=== PATIENT | female | born 1965 | race Caucasian/White ===

== ENCOUNTER 2016-07-06 18:16 | Emergency (ER) | payer MEDICARE, MEDICAID ==
--- NOTE | 2016-07-06 18:29 | UC ---
Truncal Trauma HPI - HPI Summary HPI Summary: fell this morning hitting the left side of her back on a chair---pain in left posterior ribs - History Of Current Complaint Chief Complaint: UCBackPain Stated Complaint: RIB INJURY Time Seen by Provider: 07/06/16 18:25 Hx Obtained From: Patient Hx Last Menstrual Period: October 2013 ?: No Onset/Duration: Sudden Onset, Lasting Hours - 10-11 hours ago Onset Of Pain: Immediate Severity Initially: Moderate Severity Currently: Moderate Pain Intensity: 6 Pain Scale Used: 0-10 Numeric Mechanism Of Injury: Blunt Trauma, Fall From A Standing Position Aggravating Factor(s): Deep Breathing Alleviating factor(s): Nothing Associated Signs And Symptoms: Positive: Negative - Allergies/Home Medications Allergies/Adverse Reactions: Allergies Allergy/AdvReac Type Severity Reaction Status Date / Time Latex Allergy Intermediate Rash And Verified 07/06/16 18:30 Itching Ceftriaxone [From Rocephin] Allergy Unknown Unknown Verified 07/06/16 18:30 Reaction Details Cephalosporins Allergy Unknown Unknown Verified 07/06/16 18:30 Reaction Details Penicillins Allergy Unknown Unknown Verified 07/06/16 18:30 Reaction Details Yeast Allergy Unknown Unknown Verified 07/06/16 18:30 Reaction Details Adhesive Tape Allergy Rash Verified 07/06/16 18:30 Iodinated Diagnostic Agents Allergy Unknown Verified 07/06/16 18:30 Reaction Details Prednisone Allergy Swelling Verified 07/06/16 18:30 Of Face,Lips,& Throat Epinephrine AdvReac Severe "MADE ME Verified 07/06/16 18:30 ALMOST GO UNCONSCIOUS" Tramadol AdvReac Intermediate Shakes Verified 07/06/16 18:30 Cyclosporine [From Restasis] AdvReac Unknown Unknown Verified 02/15/16 14:46 Reaction Details Gabapentin [From Neurontin] AdvReac Unknown Unknown Verified 02/15/16 14:46 Reaction Details Sulfa Antibiotics AdvReac See Comment Verified 02/15/16 14:46 box elder Allergy Severe Unknown Uncoded 02/15/16 14:46 Reaction Details MOLD/MILDEW Allergy Severe BREATHING Uncoded 02/15/16 14:46 DIFFICULTY perfumes Allergy Severe Airway Uncoded 02/15/16 14:46 Obstruction AIRBORN ALLERGENS Allergy Unknown Unknown Uncoded 02/15/16 14:46 Reaction Details flouride Allergy Unknown Unknown Uncoded 02/15/16 14:46 Reaction Details histamines Allergy Unknown Unknown Uncoded 02/15/16 14:46 Reaction Details PMH/Surg Hx/FS Hx/Imm Hx Previously Healthy: No Endocrine History Of: Denies: Diabetes, Thyroid Disease Cardiovascular History Of: Reports: Hypertension, Congestive Heart Failure Denies: Cardiac Disorders, Pacemaker/ICD Respiratory History Of: Denies: COPD, Asthma GI/ History Of: Denies: Ulcer Neurological History Of: Reports: CVA - CVA x 2 2014 Denies: Seizures Psychological History Of: Denies: Anxiety, Depression, Bipolar Disorder, Schizophrenia Other History Of: Negative For: Anticoagulant Therapy - Surgical History Surgical History: Unable to Obtain/Confirm Surgery Procedure, Year, and Place: 18 dental removals and numerous implants that failed - CHRONIC LOW GRADE INFECTION. Skin grafts February 2016 - Family History Known Family History: Positive: Cardiac Disease, Hypertension - Social History Occupation: Disabled Lives: With Family Alcohol Use: None Substance Use Type: None Smoking Status (MU): Former Smoker Length of Time of Smoking/Using Tobacco: quit 1996 Have You Smoked in the Last Year: No - Immunization History Most Recent Influenza Vaccination: none Most Recent Tetanus Shot: distant past Most Recent Pneumonia Vaccination: none Review of Systems Constitutional: Negative Skin: Negative Eyes: Negative ENT: Negative Respiratory: Negative Cardiovascular: Negative Gastrointestinal: Negative Genitourinary: Negative Motor: Negative Neurovascular: Negative Musculoskeletal: Arthralgia - left posterior rib pain Neurological: Negative Psychological: Negative All Other Systems Reviewed And Are Negative: Yes Physical Exam Triage Information Reviewed: Yes Appearance: Ill-Appearing - chronic debilitated, Pain Distress - mild, Thin Vital Signs: Initial Vital Signs Temp 99.1 F 07/06/16 18:22 Pulse 90 07/06/16 18:22 Resp 18 07/06/16 18:22 BP 158/94 07/06/16 18:22 Pulse Ox 97 07/06/16 18:22 Vital Signs Reviewed: Yes Eye Exam: Normal Eyes: Positive: Conjunctiva Clear ENT Exam: Normal ENT: Positive: Normal ENT inspection, Hearing grossly normal. Negative: Nasal congestion, Nasal drainage, Muffled/hoarse voice Dental Exam: Other Dental: Positive: Other: - multiple missing teeth Neck exam: Normal Neck: Positive: Supple, Nontender, No Lymphadenopathy Respiratory Exam: Normal Respiratory: Positive: Lungs clear, Normal breath sounds, No respiratory distress, No accessory muscle use, Other: - left posterior rib pain Cardiovascular Exam: Normal Cardiovascular: Positive: RRR, No Murmur, Pulses Normal, Brisk Capillary Refill Musculoskeletal Exam: Normal Musculoskeletal: Positive: Strength Intact, ROM Intact, No Edema Neurological Exam: Normal Neurological: Positive: Alert, Muscle Tone Normal Psychological Exam: Normal Skin Exam: Normal Diagnostics - Radiology No standard instances Xray Interpretation: Positive (See Comments) - minimally displaced left 9th posterior rib pain Radiology Interpretation Completed By: Radiologist Truncal Trauma Course/Dx - Course Course Of Treatment: pain control, social work referral, increase fluids, cough and deep breath q1 hour while awake - Differential Dx/Diagnosis Differential Diagnosis/HQI/PQRI: Renal Trauma, Rib Fracture Provider Diagnoses: left 9th posterior rib fx, hematuria (chronic) Discharge - Discharge Plan Condition: Stable Disposition: HOME Patient Education Materials: Rib Fracture (ED), Hematuria (ED), RICE Therapy ( ED) Referrals: Rose Mary Almonte MD [Primary Care Provider] - 3 Days
--- NOTE | 2016-07-06 19:52 | RAD ---
Indication: Evaluate for rib injury, chest pain the left. 3 views of the left ribs are reviewed. There is fracture of the left ninth rib laterally. There is some minimal displacement noted. No pneumothorax is noted. IMPRESSION: Minimally displaced fracture of the left ninth rib.
[2016-07-06] MEDS ORDERED: HYDROcodone/ACETAMIN 5-325 MG* 1 TAB PO ONE (20:01)
[2016-07-06 21:09] VITALS: BP 142/83
== END 2016-07-06 20:25 | disposition home or self-care (01) ==
LOC: UCEAST 18:16
DX: S22.32XA Fracture of one rib, left side, initial encounter for closed fracture (principal); R31.9 Hematuria, unspecified; W20.8XXA Other cause of strike by thrown, projected or falling object, initial encounter; Y92.9 Unspecified place or not applicable; I10 Essential (primary) hypertension; I50.9 Heart failure, unspecified; I63.9 Cerebral infarction, unspecified; Z88.0 Allergy status to penicillin
CPT/HCPCS: 81003; 99212; G0463

== ENCOUNTER 2016-08-18 15:20 | Inpatient (IN) | payer MEDICARE, MEDICAID ==
[2016-08-18] MEDS ORDERED: NS 0.9% 1000 ML* 1,000 ML IV ONE ×2 (18:19→19:41)
--- NOTE | 2016-08-18 18:48 | RAD ---
INDICATION: Hemoptysis single episode this morning. COMPARISON: July 06, 2016 and August 14, 2015 TECHNIQUE: Dual energy PA and routine lateral views of the chest were obtained. REPORT: Elevated lung volumes with mild prominence of the interstitial markings and patchy upper lung zone rarefaction. Alveolar consolidation at the LEFT lung base likely involving the anteromedial basal segment of the LEFT lower lobe without volume loss suspicious for pneumonia. Negative for pleural effusion or pneumothorax. Upper normal heart size. Unremarkable central pulmonary vasculature and mediastinal contours. No suspicious focal osseous lesions evident. IMPRESSION: The constellation of findings is most consistent with LEFT basilar pneumonia superimposed on chronic obstructive pulmonary disease. Radiographic follow-up after therapy suggested to assess for resolution.
[2016-08-18 19:01] LABS: Hematocrit 33 % (35-47); Hemoglobin 11.2 g/dl (12.0-16.0); Mean Corpuscular HGB Conc 34 g/dl (31-36); Mean Corpuscular Hemoglobin 30 pg (27-31); Mean Corpuscular Volume 90 fL (80-97); Mean Platelet Volume 8 um3 (7.4-10.4); Red Blood Count 3.68 10^6/ul (4.0-5.4); Red Cell Distribution Width 15 % (10.5-15); White Blood Count 7.4 10^3/ul (3.5-10.8)
[2016-08-18 19:18] LABS: ALT 22 U/L (7-52); Albumin 2.9 g/dL (3.2-5.2); Alkaline Phosphatase 66 U/L (34-104); BUN/Creatinine Ratio 31.8 (8-20); Blood Urea Nitrogen 55 mg/dL (6-24); CO2 Carbon Dioxide 21 mmol/L (22-32); Calcium 9.6 mg/dL (8.6-10.3); Chloride 103 mmol/L (101-111); EGFR African American 39.6 (>60); EGFR Non-African American 30.8 (>60); Globulin 5.1 g/dL (2-4); Glucose 100 mg/dL (70-100); Sodium 131 mmol/L (133-145)
[2016-08-18 19:20] LABS: Troponin I 0.01 ng/mL (<0.04)
[2016-08-18] MEDS ORDERED: Levofloxacin 750 MG IVPREMIX(* 750 MG/150 ML BAG IVPB ONE (19:41)
[2016-08-18] MEDS ORDERED: CMCS: Melatonin (NF) 3 MG TAB PO PRN (20:10)
[2016-08-18] MEDS ORDERED: Albuterol 2.5 MG/3 ML NEB.SOL* (0.083%) INH PRN (20:10)
--- NOTE | 2016-08-18 20:10 | HP ---
H&P (Free Text) History and Physical: PCP: Ramya Little MD Date/Time of Evaluation: 08/18/20161944 CC: coughing up blood HPI: Mrs Galicia is a 51YO female with complicated HX outlined below who was admitted to a hospital in [place] from Feb 2016 to Apr 2016 for B foot skin grafts treating large ulcers. The L foot did well, the R foot has recurrent ulcerations. During that admission, she reports developing a cough and congestion which has persisted. She was treated outpatient with azithrymycin without improvement. A sputum CX 06/2016 grew MSSA and she was placed on doxycycline which significantly reduced the amount of sputum she produced. However this AM she began coughing up blood clots and fresh blood causing her concern and prompting this visit for evaluation. She otherwise denies chest pain , SOB, F/C, N/V/D, or other issues. During the exam she pauses and coughs up ~ 2cc of blood clot without any distress. Vitals are stable. Lab values are reasonably normal for her. Although her renal function is mildly worse than baseline. CXR shows LLL pneumonia & COPD. PMedHx CVA x2 mod to severe pulmonary HTN CKD stg 3b cardiomyopathy EF 40-45% aspiration mixed cryoglobulinemia Sjogren's syndrome HTN normocytic anemia peripheral neuropathy HX lymphoma vasculitis, BLE B foot ulcers s/p skin grafting Ambulatory Orders Aspirin TAB* [Aspirin 325 MG TAB*] 325 mg PO DAILY 06/06/15 Ondansetron ODT TAB* [Zofran 4 MG Odt TAB*] 8 mg PO Q8H PRN 06/06/15 cloNIDine TAB* [Catapres TAB*] 0.1 mg PO BID 06/22/15 Carvedilol TAB* [Coreg TAB*] 25 mg PO 0900,2100 09/19/15 Ibuprofen [Ibuprofen 800 MG] 800 mg PO Q8H PRN 10/21/15 Fluconazole 150 MG (NF) [Diflucan 150 mg (NF)] 150 mg PO ONCE #1 tab 11/02/15 Acetaminophen [Acetaminophen Extra Stren] 500 - 1,000 mg PO Q4HR PRN 02/16/16 Oxycodone TAB(NF) [Oxycodone HCl 10 MG] 10 - 20 mg PO Q6H PRN MDD 40 mg amLODIPine TAB* [Norvasc TAB*] 10 mg PO BID 02/16/16 DOXYcycline CAP(*) [DOXYcycline 100MG CAP(*)] 100 mg PO BID 08/13/16 Furosemide TAB* 40 mg PO BID 08/18/16 Allergies Latex Allergy (Intermediate, Verified 08/13/16 14:56) Rash And Itching Ceftriaxone [From Rocephin] Allergy (Unknown, Verified 08/13/16 14:56) Unknown Reaction Details allergic by "skin test" Cephalosporins Allergy (Unknown, Verified 08/13/16 14:56) Unknown Reaction Details allergic by "skin test" Penicillins Allergy (Unknown, Verified 08/13/16 14:56) Unknown Reaction Details allergic by "skin test" Yeast Allergy (Unknown, Verified 08/13/16 14:56) Unknown Reaction Details allergic by "skin test" Adhesive Tape Allergy (Verified 08/13/16 14:56) Rash Iodinated Diagnostic Agents Allergy (Verified 08/13/16 14:56) Unknown Reaction Details Prednisone Allergy (Verified 08/13/16 14:56) Swelling Of Face,Lips,& Throat Epinephrine Adverse Reaction (Severe, Verified 08/13/16 14:56) "MADE ME ALMOST GO UNCONSCIOUS" Tramadol Adverse Reaction (Intermediate, Verified 08/13/16 14:56) Shakes pt DC'd on her own and began taking Gabapentin for nerve pain which had formerly been listed by pt as a med allergy Cyclosporine [From Restasis] Adverse Reaction (Unknown, Verified 08/13/16 14:56) Unknown Reaction Details "severe eye pain" and neutropenia Gabapentin [From Neurontin] Adverse Reaction (Unknown, Verified 08/13/16 14:56) Unknown Reaction Details pt started taking again 04/26/12 - she states it slightly affects her breathing - pt made this decison on her own, without a PCP Sulfa Antibiotics Adverse Reaction (Verified 08/13/16 14:56) See Comment "it made me weak shakey and ill." box elder Allergy (Severe, Uncoded 08/13/16 14:56) Unknown Reaction Details MOLD/MILDEW Allergy (Severe, Uncoded 08/13/16 14:56) BREATHING DIFFICULTY allergic by "skin test" perfumes Allergy (Severe, Uncoded 08/13/16 14:56) Airway Obstruction AIRBORN ALLERGENS Allergy (Unknown, Uncoded 08/13/16 14:56) Unknown Reaction Details flouride Allergy (Unknown, Uncoded 08/13/16 14:56) Unknown Reaction Details histamines Allergy (Unknown, Uncoded 08/13/16 14:56) Unknown Reaction Details allergic by "skin test" SocHx: former smoker w/ ~10PYHX, denies alcohol & recreational drugs; single, lives alone, no children; disabled; full code status FamHx: Mother: DM, HTN, alive; Father passed of CAD in his 50s; Brother 1: HTN, CVA; Brother 2: CVA in his 50s ROS: as above, otherwise reviewed and all were negative Constitutional: NAD, normally developed, thin vitals: Vital Signs Temp 36.8 C 08/18/16 16:51 Pulse 77 08/18/16 16:51 Resp 20 08/18/16 16:51 BP 147/76 08/18/16 16:51 Pulse Ox 98 08/18/16 16:51 Intake & Output 08/17/16 08/18/16 08/18/16 23:59 11:59 23:59 Weight 47.627 kg HEENM: atraumatic; sclera/conjunctiva: non-icteric/clear; hearing: clinically intact; nose/nasal: patent; dentition: poor; oropharynx: clear, mucosa moist Neck: soft tissue: non-tender; thyroid: normal Pulmonary: clear to auscultation bilaterally, good aeration, no accessory muscle use CV: RR/RR, normal S1S2, no carotid bruit, no jugular venous distention, 2+ B DP/ PT, no edema Abdominal: soft, non-distended, non-tender, no rebound/guarding/rigidity, normoactive bowel sounds, no hepatosplenomegaly or masses, no costovertebral angle tenderness Musculoskeletal: general: grossly intact; gait: stable Integumental: dorsum of R foot w/ healed skin graft; L foot dressing clean & dry Psychiatric orientation: AA&O to PPS affect: calm mood: cooperative eye contact: good content: reliable responses: timely insight: good Testing: Lab Results 08/18/16 08/18/16 08/18/16 Range/Units 18:45 18:45 18:45 WBC 7.4 (3.5-10.8) 10^3/ul RBC 3.68 L (4.0-5.4) 10^6/ul Hgb 11.2 L (12.0-16.0) g/dl Hct 33 L (35-47) % MCV 90 (80-97) fL MCH 30 (27-31) pg MCHC 34 (31-36) g/dl RDW 15 (10.5-15) % Plt Count 259 (150-450) 10^3/ul MPV 8 (7.4-10.4) um3 Neut % (Auto) 82.3 (38-83) % Lymph % (Auto) 8.9 L (25-47) % Irwin % (Auto) 5.4 (1-9) % Eos % (Auto) 2.0 (0-6) % Baso % (Auto) 1.4 (0-2) % Absolute Neuts (auto) 6.1 (1.5-7.7) 10^3/ul Absolute Lymphs (auto) 0.7 L (1.0-4.8) 10^3/ul Absolute Monos (auto) 0.4 (0-0.8) 10^3/ul Absolute Eos (auto) 0.1 (0-0.6) 10^3/ul Absolute Basos (auto) 0.1 (0-0.2) 10^3/ul Absolute Nucleated RBC 0 10^3/ul Nucleated RBC % 0 INR (Anticoag Therapy) 1.02 (0.89-1.11) APTT 31.3 (26.0-36.3) seconds D-Dimer, Quantitative 231 H (Less Than 230) ng/mL Sodium 131 L (133-145) mmol/L Potassium TNP Chloride 103 (101-111) mmol/L Carbon Dioxide 21 L (22-32) mmol/L Anion Gap TNP BUN 55 H (6-24) mg/dL Creatinine 1.73 H (0.51-0.95) mg/dL Est GFR ( Amer) 39.6 (>60) Est GFR (Non-Af Amer) 30.8 (>60) BUN/Creatinine Ratio 31.8 H (8-20) Glucose 100 (70-100) mg/dL Lactic Acid (0.5-2.0) mmol/L Calcium 9.6 (8.6-10.3) mg/dL Total Bilirubin 0.30 (0.2-1.0) mg/dL AST TNP ALT 22 (7-52) U/L Alkaline Phosphatase 66 (34-104) U/L Troponin I 0.01 (<0.04) ng/mL Total Protein 8.0 (6.4-8.9) g/dL Albumin 2.9 L (3.2-5.2) g/dL Globulin 5.1 H (2-4) g/dL Albumin/Globulin Ratio 0.6 L (1-3) 08/18/16 Range/Units 18:45 WBC (3.5-10.8) 10^3/ul RBC (4.0-5.4) 10^6/ul Hgb (12.0-16.0) g/dl Hct (35-47) % MCV (80-97) fL MCH (27-31) pg MCHC (31-36) g/dl RDW (10.5-15) % Plt Count (150-450) 10^3/ul MPV (7.4-10.4) um3 Neut % (Auto) (38-83) % Lymph % (Auto) (25-47) % Irwin % (Auto) (1-9) % Eos % (Auto) (0-6) % Baso % (Auto) (0-2) % Absolute Neuts (auto) (1.5-7.7) 10^3/ul Absolute Lymphs (auto) (1.0-4.8) 10^3/ul Absolute Monos (auto) (0-0.8) 10^3/ul Absolute Eos (auto) (0-0.6) 10^3/ul Absolute Basos (auto) (0-0.2) 10^3/ul Absolute Nucleated RBC 10^3/ul Nucleated RBC % INR (Anticoag Therapy) (0.89-1.11) APTT (26.0-36.3) seconds D-Dimer, Quantitative (Less Than 230) ng/mL Sodium (133-145) mmol/L Potassium Chloride (101-111) mmol/L Carbon Dioxide (22-32) mmol/L Anion Gap BUN (6-24) mg/dL Creatinine (0.51-0.95) mg/dL Est GFR ( Amer) (>60) Est GFR (Non-Af Amer) (>60) BUN/Creatinine Ratio (8-20) Glucose (70-100) mg/dL Lactic Acid 0.8 (0.5-2.0) mmol/L Calcium (8.6-10.3) mg/dL Total Bilirubin (0.2-1.0) mg/dL AST ALT (7-52) U/L Alkaline Phosphatase (34-104) U/L Troponin I (<0.04) ng/mL Total Protein (6.4-8.9) g/dL Albumin (3.2-5.2) g/dL Globulin (2-4) g/dL Albumin/Globulin Ratio (1-3) ECG, personally reviewed: NSR rate 85, PAC/PVCs, no ischemia CXR, personally reviewed: IMPRESSION: The constellation of findings is most consistent with LEFT basilar pneumonia superimposed on chronic obstructive pulmonary disease. Radiographic follow-up after therapy suggested to assess for resolution. Impression: 51F presenting with denzel hemoptysis and finding of LLL pneumonia on CXR & sputum CX 06/2016 positive for MSSA DIAGNOSIS & PLAN Primary LLL pneumonia w/ hemotysis : IVFs : sputum & blood CXs : IV clindamycin : supplemental oxygen : guaifenesin : consider pulmonology consult in AM : check CRP given HX vasculitis : supportive care Secondary HX CVA x2 : hold aspirin for now pulmonary HTN, mod-sev : likely contributing to hemoptysis : otherwise no acute issues CKD stg 3b : IVFs, trend renal function cardiomyopathy EF 40-45% : cautious use of IVFs : strict I&Os : daily weights mixed cryoglobulinemia, Sjogren's syndrome, & vasculitis : no acute issues HTN : review meds once reconciled normocytic anemia : improved from baseline, monitor periodically Admission Rational: inpatient for management of CAP w/ hemotysis in patient with multiple co-morbidities at risk of rapid decompensation making outpatient status inappropriate DVTp: SCDs, no anticoagulation give hemoptysis Code Status: full
[2016-08-18] MEDS ORDERED: cloNIDine TAB* 0.1 MG PO SCH (21:00)
[2016-08-18] MEDS ORDERED: amLODIPine TAB* 5 MG PO SCH ×2 (21:00→23:10)
--- NOTE | 2016-08-18 21:03 | ED ---
I, [place], scribed for Herbert De Souza MD on 08/18/16 at 1816 . Respiratory - HPI Summary HPI Summary: This 51 y/o female presents to ED for hemoptysis since this morning. Pt denies any n/v, chest pain, or SOB. Positive general weakness, productive cough with usual green sputum, and general myalgia. PMHx includes chronic PNA, which is noted with positive staph aureus and has been recently treated with clindamycin and then doxycycline, Sjogren's disease, lymphoma, and CVA. Pt is currently on ASA 325 mg qd but not on any other blood thinner. Pt is a former smoker with remote cessation 20 years ago. - History of Current Complaint Chief Complaint: EDGeneral Stated Complaint: COUGHING UP BLOOD Time Seen by Provider: 08/18/16 18:00 Hx Obtained From: Patient, Medical Records Onset/Duration: Sudden Onset, Still Present Pain Intensity: 0 Character: Cough (Productive) Sputum Amount: Moderate Sputum Color: Green, Red (Blood) Aggravating Factor(s): Nothing Alleviating Factor(s): Nothing Associated Signs and Symptoms: Hemoptysis - Allergy/Home Medications Allergies/Adverse Reactions: Allergies Allergy/AdvReac Type Severity Reaction Status Date / Time Latex Allergy Intermediate Rash And Verified 08/13/16 14:56 Itching Ceftriaxone [From Rocephin] Allergy Unknown Unknown Verified 08/13/16 14:56 Reaction Details Cephalosporins Allergy Unknown Unknown Verified 08/13/16 14:56 Reaction Details Penicillins Allergy Unknown Unknown Verified 08/13/16 14:56 Reaction Details Yeast Allergy Unknown Unknown Verified 08/13/16 14:56 Reaction Details Adhesive Tape Allergy Rash Verified 08/13/16 14:56 Iodinated Diagnostic Agents Allergy Unknown Verified 08/13/16 14:56 Reaction Details Prednisone Allergy Swelling Verified 08/13/16 14:56 Of Face,Lips,& Throat Epinephrine AdvReac Severe "MADE ME Verified 08/13/16 14:56 ALMOST GO UNCONSCIOUS" Tramadol AdvReac Intermediate Shakes Verified 08/13/16 14:56 Cyclosporine [From Restasis] AdvReac Unknown Unknown Verified 08/13/16 14:56 Reaction Details Gabapentin [From Neurontin] AdvReac Unknown Unknown Verified 08/13/16 14:56 Reaction Details Sulfa Antibiotics AdvReac See Comment Verified 08/13/16 14:56 box elder Allergy Severe Unknown Uncoded 08/13/16 14:56 Reaction Details MOLD/MILDEW Allergy Severe BREATHING Uncoded 08/13/16 14:56 DIFFICULTY perfumes Allergy Severe Airway Uncoded 08/13/16 14:56 Obstruction AIRBORN ALLERGENS Allergy Unknown Unknown Uncoded 08/13/16 14:56 Reaction Details flouride Allergy Unknown Unknown Uncoded 08/13/16 14:56 Reaction Details histamines Allergy Unknown Unknown Uncoded 08/13/16 14:56 Reaction Details Home Medications: Home Medications Furosemide TAB* 40 mg PO BID 08/18/16 [History Confirmed 08/18/16] PMH/Surg Hx/FS Hx/Imm Hx Endocrine/Hematology History: Reports: Hx Systemic Lupus Erythematosus, Hx Anemia Denies: Hx Anticoagulant Therapy, Hx Blood Transfusions, Hx Diabetes, Hx Thyroid Disease Cardiovascular History: Reports: Hx Congestive Heart Failure, Hx Hypertension Denies: Hx Pacemaker/ICD Respiratory History: Reports: Other Respiratory Problems/Disorders - oxygen diffusion impaiment 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 Sensory History: Reports: Hx Contacts or Glasses Denies: Hx Cataracts, Hx Eye Injury, Hx Eye Prosthesis, Hx Glaucoma, Hx Legally Blind, Hx Macular Degeneration, Hx Deafness, Hx Hearing Aid, Hx Hearing Problem Opthamlomology History: Reports: Hx Contacts or Glasses Denies: Hx Cataracts, Hx Eye Injury, Hx Eye Prosthesis, Hx Glaucoma, Hx Legally Blind, Hx Macular Degeneration Neurological History: Reports: Hx Headaches, Hx Nerve Disease Denies: Hx Seizures Psychiatric History: Denies: Hx Anxiety, Hx Attention Deficit Hyperactivity Disorder, Hx Eating Disorder, Hx Depression, Hx Panic Disorder, Hx Post Traumatic Stress Disorder, Hx Inpatient Treatment, Hx Community Mental Health Tx, Hx Schizophrenia, Hx Bipolar Disorder, Hx Suicide Attempt, Hx of Violent Episodes Against Others, Hx Substance Abuse - Cancer History Cancer Type, Location and Year: Autoimmune disease. LYMPHOMA (PT REPORTED) 2006 -- with spontaneous remission. Anemia (recent). Neutropenia - Low baseline - Surgical History Surgery Procedure, Year, and Place: 18 dental removals and numerous implants that failed - CHRONIC LOW GRADE INFECTION. Skin grafts February 2016 Hx Anesthesia Reactions: No - never had anesthesia Infectious Disease History: No Infectious Disease History: Reports: History Other Infectious Disease - lyme disease, ehrlichia Denies: Hx Clostridium Difficile, Hx Hepatitis, Hx Human Immunodeficiency Virus (HIV), Hx of Known/Suspected MRSA, Hx Shingles, Hx Tuberculosis, Hx Known/ Suspected VRE, Hx Known/Suspected VRSA, Traveled Outside the [place] in Last 30 Days - Family History Known Family History: Positive: Cardiac Disease, Hypertension - Social History Alcohol Use: None Hx Substance Use: No Substance Use Type: Reports: None Hx Tobacco Use: Yes Smoking Status (MU): Former Smoker Length of Time of Smoking/Using Tobacco: quit 1996 Have You Smoked in the Last Year: No Review of Systems Negative: Fever, Chills Negative: Chest Pain Positive: Cough - productive secondary to chronic PNA, Other - positive hemoptysis . Negative: Shortness Of Breath Negative: Abdominal Pain, Vomiting, Nausea Positive: Other - RLE foot ulcer, chronic. Currently bandaged and being f/u by [facility]. All Other Systems Reviewed And Are Negative: Yes Physical Exam - Summary Physical Exam Summary: The patient is thin in no acute distress and in no acute pain. The skin is warm and dry and skin color reflects adequate perfusion. HEENT: The head is normocephalic and atraumatic. The pupils are equal and reactive. The conjunctivae are clear and without drainage. Nares are patent and without drainage. Mouth reveals DRY mucous membranes and the throat is without erythema and exudate. The external ears are intact. The ear canals are patent and without drainage. The tympanic membranes are intact. No blood noted at apistatsis and posterior pharynx Neck is supple with full range of motion and non-tender. There are no carotid bruits. There is no neck vein distension. Respiratory: Chest is non-tender. Lungs are clear to auscultation and breath sounds are symmetrical and equal. Crackles bibasilars. Positive stridor. Cardiovascular: Hear is regular rate and rhythm. There is no murmur or rub auscultated. There is no peripheral edema and pulses are symmetrical and equal. Abdomen: The abdomen is soft and non-tender. There are normal bowel sounds heard in all four quadrants and there is no organomegaly palpated. Musculoskeletal: There is no back pain noted. Extremities are non-tender with full range of motion. There is good capillary refill. There is no peripheral edema or calf tenderness elicited. Neurological: Patient is alert and oriented to person, place and time. The patient has symmetrical motor strength in all four extremities. Cranial nerves are grossly intact. Deep tendon reflexes are symmetrical and equal in all four extremities. Psychiatric: The patient has an appropriate affect and does not exhibit any anxiety or depression. Triage Information Reviewed: Yes Vital Signs On Initial Exam: Initial Vitals Temp Pulse Resp BP Pulse Ox 98.5 F 74 20 139/77 99 08/18/16 15:32 08/18/16 15:32 08/18/16 15:32 08/18/16 15:32 08/18/16 15:32 Vital Signs Reviewed: Yes Diagnostics - Vital Signs Vital Signs Temp Pulse Resp BP Pulse Ox 08/18/16 16:51 98.2 F 77 20 147/76 98 08/18/16 15:35 97.4 F 78 20 139/77 100 08/18/16 15:32 98.5 F 74 20 139/77 99 - Laboratory Lab Results: Lab Results 08/18/16 08/18/16 08/18/16 Range/Units 18:45 18:45 18:45 WBC 7.4 (3.5-10.8) 10^3/ul RBC 3.68 L (4.0-5.4) 10^6/ul Hgb 11.2 L (12.0-16.0) g/dl Hct 33 L (35-47) % MCV 90 (80-97) fL MCH 30 (27-31) pg MCHC 34 (31-36) g/dl RDW 15 (10.5-15) % Plt Count 259 (150-450) 10^3/ul MPV 8 (7.4-10.4) um3 Neut % (Auto) 82.3 (38-83) % Lymph % (Auto) 8.9 L (25-47) % [place] % (Auto) 5.4 (1-9) % Eos % (Auto) 2.0 (0-6) % Baso % (Auto) 1.4 (0-2) % Absolute Neuts (auto) 6.1 (1.5-7.7) 10^3/ul Absolute Lymphs (auto) 0.7 L (1.0-4.8) 10^3/ul Absolute Monos (auto) 0.4 (0-0.8) 10^3/ul Absolute Eos (auto) 0.1 (0-0.6) 10^3/ul Absolute Basos (auto) 0.1 (0-0.2) 10^3/ul Absolute Nucleated RBC 0 10^3/ul Nucleated RBC % 0 INR (Anticoag Therapy) 1.02 (0.89-1.11) APTT 31.3 (26.0-36.3) seconds D-Dimer, Quantitative 231 H (Less Than 230) ng/mL Sodium 131 L (133-145) mmol/L Potassium TNP Chloride 103 (101-111) mmol/L Carbon Dioxide 21 L (22-32) mmol/L Anion Gap TNP BUN 55 H (6-24) mg/dL Creatinine 1.73 H (0.51-0.95) mg/dL Est GFR ( Amer) 39.6 (>60) Est GFR (Non-Af Amer) 30.8 (>60) BUN/Creatinine Ratio 31.8 H (8-20) Glucose 100 (70-100) mg/dL Lactic Acid (0.5-2.0) mmol/L Calcium 9.6 (8.6-10.3) mg/dL Total Bilirubin 0.30 (0.2-1.0) mg/dL AST TNP ALT 22 (7-52) U/L Alkaline Phosphatase 66 (34-104) U/L Troponin I 0.01 (<0.04) ng/mL Total Protein 8.0 (6.4-8.9) g/dL Albumin 2.9 L (3.2-5.2) g/dL Globulin 5.1 H (2-4) g/dL Albumin/Globulin Ratio 0.6 L (1-3) 08/18/16 08/18/16 Range/Units 18:45 19:44 WBC (3.5-10.8) 10^3/ul RBC (4.0-5.4) 10^6/ul Hgb (12.0-16.0) g/dl Hct (35-47) % MCV (80-97) fL MCH (27-31) pg MCHC (31-36) g/dl RDW (10.5-15) % Plt Count (150-450) 10^3/ul MPV (7.4-10.4) um3 Neut % (Auto) (38-83) % Lymph % (Auto) (25-47) % [place] % (Auto) (1-9) % Eos % (Auto) (0-6) % Baso % (Auto) (0-2) % Absolute Neuts (auto) (1.5-7.7) 10^3/ul Absolute Lymphs (auto) (1.0-4.8) 10^3/ul Absolute Monos (auto) (0-0.8) 10^3/ul Absolute Eos (auto) (0-0.6) 10^3/ul Absolute Basos (auto) (0-0.2) 10^3/ul Absolute Nucleated RBC 10^3/ul Nucleated RBC % INR (Anticoag Therapy) (0.89-1.11) APTT (26.0-36.3) seconds D-Dimer, Quantitative (Less Than 230) ng/mL Sodium (133-145) mmol/L Potassium TNP Chloride (101-111) mmol/L Carbon Dioxide (22-32) mmol/L Anion Gap BUN (6-24) mg/dL Creatinine (0.51-0.95) mg/dL Est GFR ( Amer) (>60) Est GFR (Non-Af Amer) (>60) BUN/Creatinine Ratio (8-20) Glucose (70-100) mg/dL Lactic Acid 0.8 (0.5-2.0) mmol/L Calcium (8.6-10.3) mg/dL Total Bilirubin (0.2-1.0) mg/dL AST TNP ALT (7-52) U/L Alkaline Phosphatase (34-104) U/L Troponin I (<0.04) ng/mL Total Protein (6.4-8.9) g/dL Albumin (3.2-5.2) g/dL Globulin (2-4) g/dL Albumin/Globulin Ratio (1-3) Result Diagrams: 08/18/16 18:45 08/18/16 19:44 Lab Statement: Any lab studies that have been ordered have been reviewed, and results considered in the medical decision making process. - Radiology CXR Xray Interpretation: Positive (See Comments) - The constellation of findings is most consistent with LEFT basilar pneumonia superimposed on chronic obstructive pulmonary disease. Radiographic follow-up after therapy suggested to assess for resolution. Radiology Interpretation Completed By: Radiologist Disposition - Course Assessment/Plan: This 51 y/o female presents to ED for acute hemoptysis since this morning. PMHx includes chronic PNA, Sjoren's disease, lymphoma, and chronic lyme disease. Pt reports recent sputum culture with positive staph aureus. CXR indicates left basilar PNA as well as COPD. Blood work indicates renal insufficiency. Previous medical records reviewed. Hospitalist was consulted, who accepts admission. - Differential Dx - Cardiopulmonary Differential Diagnoses - Cardiopulmonary: Bronchitis, Lower Resp Infection, Pulmonary Embolism, Other - cnacer, tb - Diagnoses Provider Diagnoses: Pneumonia, Hemoptysis, Dehydration, Renal insufficiency - Physician Notifications Discussed Care Of Patient With: Dr. Ryan (Hospitalist) at 1942 PM - Critical Care Time Critical Care Time: 30-74 min - 30 minutes Discharge - Discharge Plan Condition: Stable Disposition: HOME The documentation as recorded by the Adin kumar Soohyun accurately reflects the service I personally performed and the decisions made by , Herbert De Souza MD.
[2016-08-18 21:20] LABS: C Reactive Protein 6.41 mg/L (< 5.00)
[2016-08-18] MEDS ORDERED: Clindamycin 600 MG IVPREMIX(* 600 MG/50 ML SDV IV SCH (22:00)
[2016-08-18] MEDS: Carvedilol TAB* 25 MG PO SCH (23:07)
[2016-08-18] MEDS: NS 0.9% 1000 ML* 1,000 ML IV SCH (23:07)
[2016-08-18] MEDS: oxyCODONE TAB* 5 MG TAB PO PRN (23:33)
[2016-08-19] MEDS: amLODIPine TAB* 5 MG PO SCH ×3 (00:41→21:40)
[2016-08-19] MEDS: Docusate CAP* 100 MG PO SCH ×3 (01:17→21:40)
[2016-08-19] MEDS: Ondansetron INJ* 2 MG/ML VIAL IV PRN (04:13)
[2016-08-19] MEDS: oxyCODONE TAB* 5 MG TAB PO PRN ×4 (05:39→23:27)
[2016-08-19] MEDS: Omeprazole CAP* 20 MG PO SCH (05:40)
[2016-08-19 06:27] LABS: Hematocrit 31 % (35-47); Hemoglobin 10.3 g/dl (12.0-16.0); Mean Corpuscular HGB Conc 33 g/dl (31-36); Mean Corpuscular Hemoglobin 30 pg (27-31); Mean Corpuscular Volume 90 fL (80-97); Mean Platelet Volume 8 um3 (7.4-10.4); Red Blood Count 3.44 10^6/ul (4.0-5.4); Red Cell Distribution Width 15 % (10.5-15); White Blood Count 5.3 10^3/ul (3.5-10.8)
[2016-08-19 07:23] LABS: BUN/Creatinine Ratio 32.6 (8-20); Calcium 9.1 mg/dL (8.6-10.3); EGFR Non-African American 38.1 (>60); Potassium 3.9 mmol/L (3.5-5.0)
[2016-08-19] MEDS ORDERED: PROCHLORPERAZINE INJ 5 MG/ML 2 ML VIAL IV PRN (08:39)
[2016-08-19] MEDS: NS 0.9% 1000 ML* 1,000 ML IV SCH ×2 (09:17→21:50)
--- NOTE | 2016-08-19 09:41 | PN ---
Subjective Date of Service: 08/19/16 Interval History: Patient seen this morning. Says she continues to have hemoptysis this morning. Less than her initial expectoration of blood and clots but has been persistent. Denies fever or chills. Tested negative for TB earlier this year. Family History: Unchanged from Admission Social History: Unchanged from Admission Past Medical History: Unchanged from Admission Objective Active Medications: Acetaminophen (Tylenol Tab*) 650 mg PO Q6H PRN Albuterol (Ventolin 2.5 Mg/3 Ml Neb.Nancy*) 2.5 mg INH Q2H PRN Amlodipine Besylate (Norvasc Tab*) 5 mg PO 0900,2100 CHAITANYA Carvedilol (Coreg Tab*) 25 mg PO 0900,2100 CHAITANYA Clonidine HCl (Catapres Tab*) 0.1 mg PO TID CHAITANYA Docusate Sodium (Colace Cap*) 200 mg PO BID CHAITANYA Sodium Chloride (Ns 0.9% 1000 Ml*) 1,000 mls @ 100 mls/hr IV PER RATE CHAITANYA Levofloxacin/Dextrose (Levaquin 750 Mg Ivpremix(*)) 750 mg in 150 mls @ 100 mls /hr IVPB Q48H CHAITANYA Melatonin (Melatonin (Nf)) 3 mg PO BEDTIME PRN; Protocol Omeprazole (Prilosec Cap*) 20 mg PO DAILY@0600 CHAITANYA Ondansetron HCl (Zofran Inj*) 4 mg IV Q6H PRN Oxycodone HCl (Roxycodone Tab*) 10 mg PO Q5H PRN Prochlorperazine Edisylate (Compazine Inj*) 5 mg IV Q6H PRN Vital Signs 08/18/16 08/18/16 08/18/16 21:26 21:28 22:11 Temperature 99.2 F 99.1 F 99.1 F Pulse Rate 73 78 78 Respiratory 18 18 18 Rate Blood Pressure 145/71 162/94 162/94 (mmHg) O2 Sat by Pulse 95 98 98 Oximetry 08/18/16 08/19/16 08/19/16 23:33 01:33 04:18 Temperature 99.1 F Pulse Rate 76 Respiratory 18 16 12 Rate Blood Pressure 148/73 (mmHg) O2 Sat by Pulse 97 Oximetry 08/19/16 08/19/16 08/19/16 05:39 07:39 08:00 Temperature Pulse Rate Respiratory 18 16 16 Rate Blood Pressure (mmHg) O2 Sat by Pulse Oximetry Oxygen Devices in Use Now: None Appearance: Middle-aged, F, laying in bed in NAD Eyes: No Scleral Icterus Ears/Nose/Mouth/Throat: Mucous Membranes Moist, - - Poor dentition Neck: NL Appearance and Movements; NL JVP Respiratory: Symmetrical Chest Expansion and Respiratory Effort, - - LLL rales Cardiovascular: RRR - prominent s1 and s2 Abdominal: NL Sounds; No Tenderness; No Distention Lymphatic: No Cervical Adenopathy Extremities: No Edema, - - RLE dressing in place Skin: - - L foot with well-healed graft, did not undress R foot (awaiting wound care) Neurological: Alert and Oriented x 3 Result Diagrams: 08/19/16 05:55 08/19/16 05:55 Additional Lab and Data: Microbiology and Other Data: Microbiology 08/18/16 20:30 Legionella Urinary Antigen - Final Urine Negative Legionella Streptococcus pneumoniae Ag Screen - Final Negative S. pneumo Antigen 08/18/16 21:35 Gram Stain - Final Sputum 08/18/16 21:40 Influenza Types A,B Antigen (RUPERT) - Final Nasal Specimen received for Influenza A/B Molecular testing Assess/Plan/Problems-Billing Assessment: LLL PNA and hemoptysis in a 51 yo F with hx of HTN, CKD, vasculitis/ cryoglobulinemia, pulmonary HTN, cardiomyopathy - Patient Problems (1) CAP (community acquired pneumonia) Current Visit: Yes Comment: hemoptysis. Continue Levaquin. Will get CT chest to further evaluate other etiology for hemoptysis aside from infection. CRP mildly elevated. Will get Pulmonology consult. Check ANCA panel. Weaned off O2. Continue IVF for now. (2) Hypertension Current Visit: No Comment: Continue Clonidine, Amlodipine and Coreg (3) CVA (cerebral vascular accident) Current Visit: Yes Comment: Holding ASA (4) CKD (chronic kidney disease), stage III Current Visit: No Comment: Creatinine improved, nearly back to baseline (5) Cardiomyopathy Current Visit: Yes Comment: EF 40-45%. Cautious IVF. No evidence of overload presently. Beta-alvaro as above. (6) Chronic wound of extremity Current Visit: No Comment: Wound care consult pending. Will evaluate when nurse present. (7) DVT prophylaxis Current Visit: No Comment: SCDs
[2016-08-19] MEDS: Carvedilol TAB* 25 MG PO SCH ×2 (10:51→21:40)
[2016-08-19] MEDS: cloNIDine TAB* 0.1 MG PO SCH ×3 (10:51→21:40)
--- NOTE | 2016-08-19 12:15 | RAD ---
Indication: Hemoptysis, pneumonia. CT of the chest was performed without IV contrast. Coronal and sagittal reconstructed images were obtained. Inferior thyroid lobes are unremarkable. No mediastinal or hilar adenopathy is noted. This cardiomegaly with small pericardial effusion noted. Changes and major bronchi appear patent. There is airspace disease in the left lower lobe posteriorly and anteriorly with air bronchograms consistent with lobar pneumonia. There may be some minimal airspace disease in the right lung base noted. No pleural fluid is identified. Visualized abdominal organs are otherwise unremarkable. IMPRESSION: FINDINGS CONSISTENT WITH LEFT BASILAR PNEUMONIA. THERE MAY BE SOME MINIMAL PNEUMONITIS IN THE RIGHT LUNG BASE.
[2016-08-20] MEDS: oxyCODONE TAB* 5 MG TAB PO PRN ×4 (04:22→19:58)
[2016-08-20] MEDS: Omeprazole CAP* 20 MG PO SCH (05:14)
[2016-08-20 05:55] LABS: Hematocrit 28 % (35-47); Hemoglobin 9.5 g/dl (12.0-16.0); Mean Corpuscular HGB Conc 34 g/dl (31-36); Mean Corpuscular Hemoglobin 30 pg (27-31); Mean Corpuscular Volume 90 fL (80-97); Mean Platelet Volume 8 um3 (7.4-10.4); Red Blood Count 3.13 10^6/ul (4.0-5.4); Red Cell Distribution Width 15 % (10.5-15)
[2016-08-20 06:11] LABS: BUN/Creatinine Ratio 32.2 (8-20); Calcium 8.9 mg/dL (8.6-10.3); EGFR African American 61.6 (>60); EGFR Non-African American 47.9 (>60)
[2016-08-20] MEDS: Docusate CAP* 100 MG PO SCH ×2 (07:39→20:01)
[2016-08-20] MEDS: Ondansetron INJ* 2 MG/ML VIAL IV PRN ×2 (08:57→22:02)
[2016-08-20] MEDS: amLODIPine TAB* 5 MG PO SCH ×2 (09:34→19:56)
[2016-08-20] MEDS: Carvedilol TAB* 25 MG PO SCH ×2 (09:34→19:57)
[2016-08-20] MEDS: cloNIDine TAB* 0.1 MG PO SCH ×3 (09:34→19:58)
--- NOTE | 2016-08-20 10:30 | PN ---
Subjective Date of Service: 08/20/16 Interval History: Patient seen this morning. Still with some hemoptysis, she feels it is difficult to tell if the quantity is decreasing although she states it is definitely less than the morning she decided to come to the hospital. No fever or chills. Feels a little wheezy. Wound biopsy/culture results from [facility] obtained from wound care nurse. Shows 3+ Pseudomonas and 3+ Enterococcus growing from 08/15 Family History: Unchanged from Admission Social History: Unchanged from Admission Past Medical History: Unchanged from Admission Objective Active Medications: Acetaminophen (Tylenol Tab*) 650 mg PO Q6H PRN Albuterol (Ventolin 2.5 Mg/3 Ml Neb.Nancy*) 2.5 mg INH Q2H PRN Amlodipine Besylate (Norvasc Tab*) 5 mg PO 0900,2100 CHAITANYA Carvedilol (Coreg Tab*) 25 mg PO 0900,2100 CHAITANYA Clonidine HCl (Catapres Tab*) 0.1 mg PO TID CHAITANYA Docusate Sodium (Colace Cap*) 200 mg PO BID CHAITANYA Levofloxacin/Dextrose (Levaquin 750 Mg Ivpremix(*)) 750 mg in 150 mls @ 100 mls /hr IVPB Q48H CHAITANYA Melatonin (Melatonin (Nf)) 3 mg PO BEDTIME PRN; Protocol Omeprazole (Prilosec Cap*) 20 mg PO DAILY@0600 CHAITANYA Ondansetron HCl (Zofran Inj*) 4 mg IV Q6H PRN Oxycodone HCl (Roxycodone Tab*) 10 mg PO Q5H PRN Prochlorperazine Edisylate (Compazine Inj*) 5 mg IV Q6H PRN Sodium Chloride (Sodium Chloride(Inhalant)0.9%*) 5 ml INH Q4H PRN Vital Signs 08/19/16 08/19/16 08/19/16 11:47 11:53 15:30 Temperature 97.7 F 97.5 F Pulse Rate 61 57 Respiratory 16 16 12 Rate Blood Pressure 141/76 125/67 (mmHg) O2 Sat by Pulse 97 98 Oximetry 08/19/16 08/19/16 08/19/16 18:25 19:27 20:25 Temperature 98.0 F Pulse Rate 62 Respiratory 16 16 16 Rate Blood Pressure 142/75 (mmHg) O2 Sat by Pulse 97 Oximetry 08/19/16 08/19/16 08/20/16 23:16 23:27 01:27 Temperature 98.3 F Pulse Rate 70 Respiratory 16 16 16 Rate Blood Pressure 146/76 (mmHg) O2 Sat by Pulse 97 Oximetry 08/20/16 08/20/16 08/20/16 03:52 04:22 07:28 Temperature 98.3 F 98.2 F Pulse Rate 70 72 Respiratory 14 18 16 Rate Blood Pressure 146/74 146/81 (mmHg) O2 Sat by Pulse 96 95 Oximetry Oxygen Devices in Use Now: None Appearance: Middle-aged, F, laying in bed in NAD Eyes: No Scleral Icterus Ears/Nose/Mouth/Throat: Mucous Membranes Moist Neck: NL Appearance and Movements; NL JVP Respiratory: Symmetrical Chest Expansion and Respiratory Effort, - - Mild rales in L base, some DAVID ronchi, otherwise clear Cardiovascular: NL Sounds; No Murmurs; No JVD, RRR Abdominal: NL Sounds; No Tenderness; No Distention Lymphatic: No Cervical Adenopathy Extremities: No Edema Skin: - - RLE evaluated with wound care nurse yesterday, 2 shallow ulcerations on dorsum of foot, bases appear clean, no purulent dischagre, edges are black ( necrosis vs dressing) Neurological: Alert and Oriented x 3 Result Diagrams: 08/20/16 04:59 08/20/16 04:59 Additional Lab and Data: Assess/Plan/Problems-Billing Assessment: LLL PNA and hemoptysis in a 51 yo F with hx of HTN, CKD, vasculitis/ cryoglobulinemia, pulmonary HTN, cardiomyopathy - Patient Problems (1) CAP (community acquired pneumonia) Current Visit: Yes Comment: hemoptysis. Pseudomonas growing from sputum culture. Will change ABx to Meropenem. Pulmonology not available. Spoke with Dr. Lau yesterday who recommended continuing with ABx therapy, recheck CT scan in 1-2 months to ensure complete resolution and no underling malignancy, does not seem like anything systemic and not close to any large airways. ANCA panel pending. Will ask for ID assistance as patient has numerous drug allergies. Hb slightly lower, will continue to trend. (2) Chronic wound of extremity Current Visit: No Comment: Appreciate wound care assistance. Will continue with outpatient dressings. Wound does not look like there is significant infection however culture results from [facility] show pseudomonas and enterococcus. Will ask ID to evaluate, ?need for Enterococcus coverage and if so , with Vancomycin or PCN (with ?sensitization) (3) Hypertension Current Visit: No Comment: Continue Clonidine, Amlodipine and Coreg (4) CVA (cerebral vascular accident) Current Visit: Yes Comment: Holding ASA (5) CKD (chronic kidney disease), stage III Current Visit: No Comment: Creatinine improved, back to baseline (6) Cardiomyopathy Current Visit: Yes Comment: EF 40-45%. Stopped IVF. No evidence of overload presently. Beta-alvaro as above. (7) DVT prophylaxis Current Visit: No Comment: SCDs Status and Disposition: Pending ABx course
[2016-08-20] MEDS ORDERED: Meropenem 1 GM PREMIX(*) 1 GM/50 ML BAG IV SCH ×3 (11:00→12:00)
[2016-08-20] MEDS: Sodium Chloride(INHALANT)0.9%* 5 ML NEB.SOLN INH PRN (12:34)
[2016-08-20 17:26] LABS: C-ANCA Negative (Negative)
[2016-08-20] MEDS: Acetaminophen TAB* 325 MG PO PRN (18:05)
[2016-08-20] MEDS: Ciprofloxacin 400MG IVPREMIX(* 400 MG/200 ML BAG IVPB SCH ×3 (18:06→18:15)
[2016-08-20] MEDS ORDERED: Levofloxacin 750 MG IVPREMIX(* 750 MG/150 ML BAG IVPB SCH (20:00)
--- NOTE | 2016-08-20 22:02 | CONS ---
CONSULTATION REPORT: DATE OF CONSULT: 08/20/16 REQUESTING PHYSICIAN: Dr. Shanks. CONSULTING SERVICE: Infectious Disease. REASON FOR CONSULTATION: Hemoptysis and pneumonia. IMPRESSION: 1. Three days of hemoptysis and cough. A CT scan shows airspace disease in the left lower lobe, posterior and anterior consolidation with air bronchograms. She had decreased breath sounds at the left base. Taken together consistent with pneumonia, sputum cultures growing Pseudomonas aeruginosa. Her cough and hemoptysis are improving, though not resolved, she has been on meropenem since this morning. 2. Cryoglobulinemia. 3. Bilateral foot ulceration, status post bilateral skin grafts, now with ulceration of the skin graft on the right foot without evidence of purulent drainage, though has grown Pseudomonas and enterococcus when cultured on at [facility]. 4. Allergy to CEPHALOSPORINS, caused rash; PENICILLIN caused rash; SULFA, unknown allergy. RECOMMENDATIONS: 1. Start meropenem. 2. Start ciprofloxacin 400 mg IV every 12 hours. 3. Follow her lung symptoms and hemoptysis. 2. Wound treatment as she is having done for the right foot skin graft associated wounds. HISTORY OF PRESENT ILLNESS: This is a 51-year-old woman with a history of cryoglobulinemia, chronic bilateral foot wounds, stroke and chronic kidney disease admitted with hemoptysis, which came on suddenly over the weekend. She had had a couple of weeks of productive cough, greenish sputum, had been on doxycycline for 2 weeks which helped a little bit which she finished about 4 days before coming to the hospital. She had a sputum culture that grew staph aureus, methicillin sensitive on 07/05/16. She came to the hospital on . The blood cultures are negative. The sputum culture was sent. A Gram stain showed gram-negative bacilli, 3+ and they grew pseudomonas 2+, sensitive to Cipro, resistant to Levaquin. She has had no white count and she has had no fever, but she has had ongoing cough, shortness of breath. Today she has had a small amount of sputum come up in the cough which was streaked with blood. There were a couple of times when she felt there were clots present over the weekend. She has never had TB exposure or TB skin testing. She has not lived in other countries or been in nursing home. PAST MEDICAL HISTORY: 1. Cryoglobulinemia. 2. Chronic kidney disease. 3. Kowvivow-fa-ajomeg pulmonary hypertension. 4. Cardiomyopathy with ejection fraction of 40% to 45%. 5. History of aspiration. 6. Sjogren syndrome. 7. Hypertension. 8. Anemia. 9. Peripheral myopathy. 10. History of lymphoma. 11. 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 12. Chronic bilateral foot ulcers, status post bilateral skin graft. MEDICATIONS: 1. Tylenol. 2. Albuterol. 3. Coreg. 4. Melatonin. 5. Zofran. 6. Amlodipine. 7. Meropenem 1 g every 8 hours. ALLERGIES: To LATEX, CEFTRIAXONE OTHER CEPHALOSPORINS, PENICILLIN, PREDNISONE, TAPE, IODINE, EPINEPHRINE, SULFA. FAMILY HISTORY: No recurrent infections or TB. SOCIAL HISTORY: She lives in [place]. She had been in the hospital in [facility] for 3 months, has been in a snf. REVIEW OF SYSTEMS: A full review of systems was negative except as noted above. PHYSICAL EXAM: Vital Signs: Temperature 37, heart rate 70, respiratory rate 14 , blood pressure 140/80, O2 saturation is 96% on 2 L. General: She is awake, not in distress. Neurologic: She is oriented x3. Follows all commands. HEENT : There is no conjunctival hemorrhage. Oropharynx is without lesions. Neck is supple without nuchal rigidity. Lymph nodes: There is no cervical, supraclavicular, inguinal, axillary or epitrochlear lymphadenopathy. Heart has regular rate and rhythm without murmurs, rubs or gallops. Lungs have decreased breath sounds in the left base without egophony. There are no wheezes or rales. Abdomen is soft. Nontender and nondistended. Skin: There is no rash or splinter hemorrhages. Musculoskeletal: There is spine tenderness to palpation. Left plantar foot skin graft is well healed. The right foot is wrapped. She does not want it unwrapped because it has been treated by the wound clinic. LABORATORY DATA: Creatinine 1.1. White blood cell count 4, hemoglobin 9, platelets 172. negative. Please see impressions and recommendations outlined above, which I have discussed with Dr. Shanks. Thank you for asking me to see Ms. Galicia in consultation. [id number]/[facility] #: [id number] [facility]
[2016-08-21] MEDS: oxyCODONE TAB* 5 MG TAB PO PRN ×4 (03:47→19:26)
[2016-08-21] MEDS: Acetaminophen TAB* 325 MG PO PRN ×3 (05:21→23:26)
[2016-08-21] MEDS: Omeprazole CAP* 20 MG PO SCH ×2 (05:21→05:22)
[2016-08-21] MEDS: Ciprofloxacin 400MG IVPREMIX(* 400 MG/200 ML BAG IVPB SCH ×2 (05:22→17:34)
[2016-08-21 06:12] LABS: Hematocrit 28 % (35-47); Hemoglobin 9.2 g/dl (12.0-16.0); Mean Corpuscular HGB Conc 33 g/dl (31-36); Mean Corpuscular Hemoglobin 30 pg (27-31); Mean Corpuscular Volume 89 fL (80-97); Mean Platelet Volume 7 um3 (7.4-10.4); Red Blood Count 3.13 10^6/ul (4.0-5.4); Red Cell Distribution Width 15 % (10.5-15); White Blood Count 4.4 10^3/ul (3.5-10.8)
[2016-08-21] MEDS: cloNIDine TAB* 0.1 MG PO SCH ×3 (07:51→22:05)
[2016-08-21] MEDS: Docusate CAP* 100 MG PO SCH ×2 (07:51→23:18)
[2016-08-21] MEDS: Carvedilol TAB* 25 MG PO SCH ×2 (07:51→22:05)
[2016-08-21] MEDS: amLODIPine TAB* 5 MG PO SCH ×2 (07:51→22:05)
[2016-08-21] MEDS: Ondansetron INJ* 2 MG/ML VIAL IV PRN ×2 (08:48→19:25)
[2016-08-21] MEDS ORDERED: Fluconazole 100 MG TAB* TAB PO ONE (10:39)
--- NOTE | 2016-08-21 10:58 | PN ---
Progress Note - Progress Note SOAP: Subjective: DOS: 08/21/16 CC: hemoptysis HPI: 51 yo woman with recent onset hemoptysis, preceded by productive cough and malaise, started on antibiotics here. No fresh blood, says she has coughed up some clots. No dyspnea or chest pain. No fever, rash, or diarrhea. Objective: [] Vital Signs Temp 36.7 C 08/21/16 07:48 Pulse 71 08/21/16 08:29 Resp 16 08/21/16 08:48 BP 136/72 08/21/16 07:48 Pulse Ox 96 08/21/16 08:29 Intake & Output 08/20/16 08/21/16 08/21/16 18:59 06:59 18:59 Intake Total 1080 945 Output Total 900 1200 Balance 180 -255 Intake: IV Fluids 420 275 ns 420 275 IVPB 550 ABX - CIPROFLOXACIN 550 Oral 660 120 Output: Urine 900 1200 Other: # Bowel Movements 0 Gen:Awake, no distress HEENT:PERRL, MMM Neck:Supple Heart:RRR no murmur Lungs:decr BS L base Abd:+BS NTND soft Skin: no rash MSK: R foot wrapped Laboratory Results - last 24 hr 08/19/16 08/21/16 05:55 06:03 WBC 4.4 RBC 3.13 L Hgb 9.2 L Hct 28 L MCV 89 MCH 30 MCHC 33 RDW 15 Plt Count 170 MPV 7 L Neut % (Auto) 80.5 Lymph % (Auto) 8.1 L [place] % (Auto) 7.5 Eos % (Auto) 3.5 Baso % (Auto) 0.4 Absolute Neuts (auto) 3.5 Absolute Lymphs (auto) 0.4 L Absolute Monos (auto) 0.3 Absolute Eos (auto) 0.2 Absolute Basos (auto) 0 Absolute Nucleated RBC 0 Nucleated RBC % 0 c-ANCA Antibody Negative p-ANCA Antibody Negative Microbiology 08/18/16 18:45 Aerobic Blood Culture - Preliminary Blood Venous No Growth Day 2 Anaerobic Blood Culture - Preliminary No Growth Day 2 Blood Culture - Final 08/18/16 18:45 Aerobic Blood Culture - Preliminary Blood Venous No Growth Day 2 Anaerobic Blood Culture - Preliminary No Growth Day 2 Blood Culture - Final 08/18/16 21:35 Gram Stain - Final Sputum Sputum Culture - Final Pseudomonas Aeruginosa 08/18/16 20:30 Legionella Urinary Antigen - Final Urine Negative Legionella Streptococcus pneumoniae Ag Screen - Final Negative S. pneumo Antigen 08/18/16 21:40 Influenza Types A,B Antigen (RUPERT) - Final Nasal Specimen received for Influenza A/B Molecular testing Assessment: 1. hemoptysis due to Pseudomonas pneumonia 2. Cryoglobulinemia 3. Right foot skin graft with chronic non pressure related wound 4. Sjogren's Plan: 1. continue Cipro IV another 24 hours then cipro 500 mg po Q12hrs x14 days. Follow up Chest CT 4-[address] Watkins
--- NOTE | 2016-08-21 15:09 | PN ---
Subjective Date of Service: 08/21/16 Interval History: HOSPITALIST PROGRESS NOTE Patient seen and examined at bedside. She denies dyspnea, c/o cough with hemoptysis, but less intense than before. Family History: Unchanged from Admission Social History: Unchanged from Admission Past Medical History: Unchanged from Admission Objective Active Medications: Acetaminophen (Tylenol Tab*) 650 mg PO Q6H PRN PRN Reason: FEVER/PAIN Last Admin: 08/21/16 14:01 Dose: 650 mg Albuterol (Ventolin 2.5 Mg/3 Ml Neb.Nancy*) 2.5 mg INH Q2H PRN PRN Reason: SOB/WHEEZING Amlodipine Besylate (Norvasc Tab*) 5 mg PO 0900,2100 [facility] Last Admin: 08/21/16 07:51 Dose: 5 mg Carvedilol (Coreg Tab*) 25 mg PO 0900,2100 [facility] Last Admin: 08/21/16 07:51 Dose: 25 mg Clonidine HCl (Catapres Tab*) 0.1 mg PO TID [facility] Last Admin: 08/21/16 14:02 Dose: 0.1 mg Docusate Sodium (Colace Cap*) 200 mg PO BID [facility] Last Admin: 08/21/16 07:51 Dose: Not Given Ciprofloxacin/Dextrose (Cipro 400 Mg Ivpremix(*)) 400 mg in 200 mls @ 200 mls/ hr IVPB Q12HR@0600,1800 [facility] Last Admin: 08/21/16 05:22 Dose: 200 mls/hr Melatonin (Melatonin (Nf)) 3 mg PO BEDTIME PRN; Protocol PRN Reason: Sleep Miconazole Nitrate (Miconazole Vaginal Cream 2%*) 1 applic VAGINAL BEDTIME [facility] Omeprazole (Prilosec Cap*) 20 mg PO DAILY@0600 [facility] Last Admin: 08/21/16 05:22 Dose: Not Given Ondansetron HCl (Zofran Inj*) 4 mg IV Q6H PRN PRN Reason: NAUSEA Last Admin: 08/21/16 08:48 Dose: 4 mg Oxycodone HCl (Roxycodone Tab*) 10 mg PO Q5H PRN PRN Reason: PAIN Last Admin: 08/21/16 14:01 Dose: 10 mg Prochlorperazine Edisylate (Compazine Inj*) 5 mg IV Q6H PRN PRN Reason: NAUSEA/VOMITING Last Admin: 08/19/16 10:02 Dose: 1 ml Sodium Chloride (Sodium Chloride(Inhalant)0.9%*) 5 ml INH Q4H PRN PRN Reason: dryness/cough Last Admin: 08/20/16 12:34 Dose: 5 ml Vital Signs 08/21/16 08/21/16 08/21/16 03:53 05:47 07:48 Temperature 98.3 F 98.1 F Pulse Rate 76 71 Respiratory 14 16 16 Rate Blood Pressure 142/76 136/72 (mmHg) O2 Sat by Pulse 96 96 Oximetry Oxygen Devices in Use Now: None Appearance: Middle aged lady sitting up in bed in [facility]. Eyes: No Scleral Icterus Ears/Nose/Mouth/Throat: Mucous Membranes Moist Neck: Trachea Midline Respiratory: Symmetrical Chest Expansion and Respiratory Effort, - - BS+ bilaterally coarse, but no added sounds Cardiovascular: RRR - Normal S1 and S2 Abdominal: NL Sounds; No Tenderness; No Distention Extremities: No Edema, - - CDI to feet Neurological: Alert and Oriented x 3, NL Muscle Strength and Tone Lines/Tubes/Other Access: Clean, Dry and Intact Peripheral IV Nutrition: Taking PO's Result Diagrams: 08/21/16 06:03 08/20/16 04:59 Assess/Plan/Problems-Billing Assessment: Mrs. Galicia is a 51yo F with PMH of HTN, CVA, CKD stage 3, vasculitis/ cryoglobulinemia, Sjogren's, pulmonary HTN, cardiomyopathy who presented with c/ o hemoptysis, found to have Pseudomonas PNA. - Patient Problems (1) Pseudomonas pneumonia Comment: - CT reviewed - shows left basilar pneumonia. - Sputum culture growing Pseudomonas. - ID consult appreciated - continue Ciprofloxacin. - Will d/w Pulm. - Aspirin on hold in the setting of hemoptysis. - Patient states she had lung/kidney biopsies at [facility] in 2014 - will obtain records. (2) Chronic wound of extremity Comment: - ID input appreciated - last week's culture done at [facility] grew Pseudomonas and enterococcus - continue Cipro. - Wound care appreciated - continue every other day dressings with Acticoat flex /ABD/roll gauze. (3) Hypertension Comment: - Controlled. - Continue Clonidine, Amlodipine, and Coreg. (4) CKD (chronic kidney disease), stage III Comment: - Creatinine back to baseline. (5) DVT prophylaxis Comment: - Pharmacological prophylaxis contraindicated due to hemoptysis. - SCDs. (6) Full code status Status and Disposition: Inpatient for IV antibiotics.
[2016-08-21] MEDS: Sodium Chloride(INHALANT)0.9%* 5 ML NEB.SOLN INH PRN (16:37)
[2016-08-21] MEDS: Miconazole VAGINAL CREAM 2%* 45 GM VAGINAL SCH (22:06)
[2016-08-22] MEDS: oxyCODONE TAB* 5 MG TAB PO PRN ×5 (00:27→22:15)
[2016-08-22] MEDS: Ciprofloxacin 400MG IVPREMIX(* 400 MG/200 ML BAG IVPB SCH (05:26)
[2016-08-22] MEDS: Omeprazole CAP* 20 MG PO SCH (05:53)
[2016-08-22 05:57] LABS: Hematocrit 29 % (35-47); Hemoglobin 9.7 g/dl (12.0-16.0); Mean Corpuscular HGB Conc 33 g/dl (31-36); Mean Corpuscular Hemoglobin 30 pg (27-31); Mean Corpuscular Volume 90 fL (80-97); Mean Platelet Volume 7 um3 (7.4-10.4); Red Blood Count 3.22 10^6/ul (4.0-5.4); Red Cell Distribution Width 15 % (10.5-15)
[2016-08-22 06:09] LABS: BUN/Creatinine Ratio 19.5 (8-20); Calcium 9.1 mg/dL (8.6-10.3); EGFR African American 53.7 (>60); EGFR Non-African American 41.7 (>60); Potassium 4.3 mmol/L (3.5-5.0)
[2016-08-22] MEDS: Carvedilol TAB* 25 MG PO SCH ×2 (07:23→22:14)
[2016-08-22] MEDS: amLODIPine TAB* 5 MG PO SCH ×2 (07:23→22:14)
[2016-08-22] MEDS: cloNIDine TAB* 0.1 MG PO SCH ×3 (07:23→22:13)
[2016-08-22] MEDS: Docusate CAP* 100 MG PO SCH ×2 (07:24→22:13)
[2016-08-22] MEDS: Ondansetron INJ* 2 MG/ML VIAL IV PRN ×2 (07:31→15:08)
--- NOTE | 2016-08-22 09:57 | PN ---
Progress Note - Progress Note SOAP: Subjective: DOS: 08/22/16 CC: hemoptysis HPI: 51 yo woman with recent onset hemoptysis, preceded by productive cough and malaise, started on antibiotics here. No blood coming up today and cough mostly gone. No fever or diarrhea. Has non itchy non painful rash on arms and legs since yesterday. Objective: [] Vital Signs Temp 36.6 C 08/22/16 05:54 Pulse 61 08/22/16 05:54 Resp 16 08/22/16 05:54 BP 134/74 08/22/16 05:54 Pulse Ox 95 08/22/16 05:54 Intake & Output 08/21/16 08/22/16 08/22/16 18:59 06:59 18:59 Intake Total 885 0 Output Total 400 0 Balance 485 0 Weight 114 lb 3.2 oz Intake: IV Fluids 115 ns 115 IVPB 220 ABX - CIPROFLOXACIN 220 Oral 550 0 Output: Urine 400 0 Other: # Bowel Movements 0 # Voids 2 Gen:Awake, no distress HEENT:PERRL, MMM Neck:Supple Heart:RRR no murmur Lungs:decr BS L base Abd:+BS NTND soft Skin: ON her left arm and leg there are a few clusters of non blanching erythematous macules MSK: R foot dorsal 3 2 cm ulcers with eschar, no erythema Laboratory Results - last 24 hr 08/22/16 08/22/16 05:35 05:35 WBC 4.0 RBC 3.22 L Hgb 9.7 L Hct 29 L MCV 90 MCH 30 MCHC 33 RDW 15 Plt Count 181 MPV 7 L Neut % (Auto) 78.0 Lymph % (Auto) 12.0 L [place] % (Auto) 5.8 Eos % (Auto) 3.7 Baso % (Auto) 0.5 Absolute Neuts (auto) 3.1 Absolute Lymphs (auto) 0.5 L Absolute Monos (auto) 0.2 Absolute Eos (auto) 0.2 Absolute Basos (auto) 0 Absolute Nucleated RBC 0 Nucleated RBC % 0.1 Sodium 134 Potassium 4.3 Chloride 109 Carbon Dioxide 23 Anion Gap 2 BUN 26 H Creatinine 1.33 H Est GFR ( Amer) 53.7 Est GFR (Non-Af Amer) 41.7 BUN/Creatinine Ratio 19.5 Glucose 91 Calcium 9.1 Assessment: 1. hemoptysis due to Pseudomonas pneumonia, resolved 2. Rash, looks like small vessel vasculitis ?medication related or to cryoglobulinemia 2. Cryoglobulinemia 3. Right foot skin graft with chronic non pressure related wound 4. Sjogren's Plan: 1. change cipro to meropenem 1 gm IV Q12hrs 2. follow rash, ok to use corticosteroids if needed from infection perspective Discussed with Dr Watkins
[2016-08-22] MEDS: Meropenem 1 GM PREMIX(*) 1 GM/50 ML BAG IV SCH ×2 (10:59→16:51)
[2016-08-22] MEDS: Acetaminophen TAB* 325 MG PO PRN (12:09)
[2016-08-22] MEDS: Lactobacillus Acidophilu (GG)* 1 CAP CAP PO SCH ×2 (13:10→22:13)
--- NOTE | 2016-08-22 14:24 | PN ---
Subjective Date of Service: 08/22/16 Interval History: HOSPITALIST PROGRESS NOTE Patient seen and examined at bedside. Hemoptysis still present but less frequent and lesser amount. Denies chest pain or dyspnea. Developed a macular rash to upper and lower extremities overnight. Family History: Unchanged from Admission Social History: Unchanged from Admission Past Medical History: Unchanged from Admission Objective Active Medications: Acetaminophen (Tylenol Tab*) 650 mg PO Q6H PRN PRN Reason: FEVER/PAIN Last Admin: 08/22/16 12:09 Dose: 650 mg Albuterol (Ventolin 2.5 Mg/3 Ml Neb.Nancy*) 2.5 mg INH Q2H PRN PRN Reason: SOB/WHEEZING Amlodipine Besylate (Norvasc Tab*) 5 mg PO 0900,2099 [facility] Last Admin: 08/22/16 07:23 Dose: 5 mg Carvedilol (Coreg Tab*) 25 mg PO 0900,2100 [facility] Last Admin: 08/22/16 07:23 Dose: 25 mg Clonidine HCl (Catapres Tab*) 0.1 mg PO TID [facility] Last Admin: 08/22/16 13:10 Dose: 0.1 mg Docusate Sodium (Colace Cap*) 200 mg PO BID [facility] Last Admin: 08/22/16 07:24 Dose: Not Given Meropenem (Merrem 1 Gm Premix(*)) 1 gm in 50 mls @ 100 mls/hr IV Q8H [facility] Last Admin: 08/22/16 10:59 Dose: 100 mls/hr Lactobacillus Rhamnosus (Culturelle*) 1 cap PO BID [facility] Last Admin: 08/22/16 13:10 Dose: 1 cap Melatonin (Melatonin (Nf)) 3 mg PO BEDTIME PRN; Protocol PRN Reason: Sleep Miconazole Nitrate (Miconazole Vaginal Cream 2%*) 1 applic VAGINAL BEDTIME [facility] Last Admin: 08/21/16 22:06 Dose: 1 applic Omeprazole (Prilosec Cap*) 20 mg PO DAILY@0600 [facility] Last Admin: 08/22/16 05:53 Dose: Not Given Ondansetron HCl (Zofran Inj*) 4 mg IV Q6H PRN PRN Reason: NAUSEA Last Admin: 08/22/16 07:31 Dose: 4 mg Oxycodone HCl (Roxycodone Tab*) 10 mg PO Q5H PRN PRN Reason: PAIN Last Admin: 08/22/16 11:06 Dose: 10 mg Prochlorperazine Edisylate (Compazine Inj*) 5 mg IV Q6H PRN PRN Reason: NAUSEA/VOMITING Last Admin: 08/19/16 10:02 Dose: 1 ml Sodium Chloride (Sodium Chloride(Inhalant)0.9%*) 5 ml INH Q4H PRN PRN Reason: dryness/cough Last Admin: 08/21/16 16:37 Dose: 5 ml Vital Signs 08/22/16 08/22/16 08/22/16 05:54 10:15 11:06 Temperature 97.8 F Pulse Rate 61 Respiratory 16 16 18 Rate Blood Pressure 134/74 (mmHg) O2 Sat by Pulse 95 Oximetry Oxygen Devices in Use Now: None Appearance: Middle aged lady sitting up in bed in [facility]. Eyes: No Scleral Icterus Ears/Nose/Mouth/Throat: Mucous Membranes Moist Neck: Trachea Midline Respiratory: Symmetrical Chest Expansion and Respiratory Effort, Clear to Auscultation Cardiovascular: RRR - Normal S1 and S2 Abdominal: NL Sounds; No Tenderness; No Distention Extremities: No Edema Skin: - - Macular rash around her wrists Neurological: Alert and Oriented x 3, NL Muscle Strength and Tone Lines/Tubes/Other Access: Clean, Dry and Intact Peripheral IV Nutrition: Taking PO's Result Diagrams: 08/22/16 05:35 08/22/16 05:35 Assess/Plan/Problems-Billing Assessment: Mrs. Galicia is a 51yo F with PMH of HTN, CVA, CKD stage 3, vasculitis/ cryoglobulinemia, Sjogren's, pulmonary HTN, cardiomyopathy who presented with c/ o hemoptysis, found to have Pseudomonas PNA. - Patient Problems (1) Pseudomonas pneumonia Comment: - CT reviewed - shows left basilar pneumonia. - Sputum culture growing Pseudomonas. - ID consult appreciated - stop Ciprofloxacin as it may be associated with her rash and start Meropenem. - Pulm consult requested. - Check V/Q scan to r/o PE. - Aspirin on hold in the setting of hemoptysis. - Patient states she had lung/kidney biopsies at [facility] in 2014 - will obtain records. (2) Chronic wound of extremity Comment: - ID input appreciated - last week's culture done at [facility] grew Pseudomonas and enterococcus - continue Cipro. - Wound care appreciated - continue every other day dressings with Acticoat flex /ABD/roll gauze. (3) Hypertension Comment: - Controlled. - Continue Clonidine, Amlodipine, and Coreg. (4) CKD (chronic kidney disease), stage III Comment: - Creatinine back to baseline. (5) DVT prophylaxis Comment: - Pharmacological prophylaxis contraindicated due to hemoptysis. - SCDs. (6) Full code status Status and Disposition: Inpatient for IV antibiotics.
[2016-08-22] MEDS: Miconazole VAGINAL CREAM 2%* 45 GM VAGINAL SCH (22:14)
[2016-08-23] MEDS: Meropenem 1 GM PREMIX(*) 1 GM/50 ML BAG IV SCH ×3 (02:00→18:21)
--- NOTE | 2016-08-23 03:52 | CONS ---
PULMONARY CONSULTATION REPORT: DATE OF CONSULT: 08/22/16 HISTORY OF PRESENT ILLNESS: The patient is a 51-year-old female with complicated history with history of foot infection status post skin graft for nonhealing ulcers, history of MRSA in the sputum, Sjogren's, [id number] pulmonary hypertension, CVA, cryoglobulinemia, systolic CHF, chronic kidney disease, anemia, lymphoma, vasculitis. The patient came into the emergency room for evaluation of coughing up blood. The patient was in a hospital in [place] for 3 months for management of left lower extremity nonhealing ulcers. The patient had cough productive of green phlegm for a few months. The patient was not treated with antibiotics while she was hospitalized at an outside facility. The patient upon discharge continued to have symptoms and was started on clindamycin by primary care physician early this year. The patient did not improve with clindamycin, cultures showed MRSA. The patient was subsequently started on doxycycline. The patient felt slightly better after doxycycline, took 1-week course and stopped without completing the second week. The patient continued to have green phlegm. The patient on the day prior to admission woke up with blood in the back of the throat after she felt congested. She coughed up blood and clots. She was concerned and presented to the emergency room for further evaluation. The patient denies chest pain, shortness of breath, nausea, vomiting, diarrhea. The patient has been having the cough for the past few months and with the acute episode of hemoptysis that prompted this admission. The patient has been bringing out 1 or 2 blood clots since admission. No active bleeding was noted. The patient denied history of hemoptysis in the past. Of note, the patient has history of lymphoma diagnosed after a cervical lymph node biopsy, which was low grade and did not need any treatment. The patient was evaluated by Pulmonary at [facility] in 2015 for mediastinal adenopathy and right lower lobe infiltrates. The patient had EBUS bronchoscopy, which was not suggestive of malignancy or lymphoma. She had a subcarinal node biopsied at that time. The patient also had right lower lobe biopsy which showed some peribronchial lymphocytes; however, flow was negative for lymphoma. The patient apparently also had kidney biopsy for chronic renal failure and was told that she has cryoglobulinemia. The patient has Sjogren's and was not on treatment. She was evaluated by Rheumatology at [place] recently and Rituximab was suggested; however, the patient did not want to start the treatment given her persistent productive cough. The patient reports dry mucous membranes at baseline. The patient has been on antibiotic multiple courses recently for her foot infection. The patient denies any other symptoms currently other than the lower extremities swelling secondary to her Lasix being held and blood clot that she coughed up today. PAST MEDICAL HISTORY: 1. CVA x2. 2. Hsfjawen-rt-somqts pulmonary hypertension. 3. Chronic kidney disease, stage 3B. 4. Cardiomyopathy, EF of 40% to 45%. 5. Aspiration. 6. Mixed cryoglobulinemia. 7. Sjogren's. 8. Hypertension. 9. Normocytic anemia. 10. Peripheral neuropathy. 11. History of low-grade lymphoma, B cell. 12. Vasculitis. 13. Bilateral lower foot ulcer, status post skin grafting. MEDICATIONS AT HOME: 1. Aspirin. 2. Ondansetron. 3. Clonidine. 4. Carvedilol. 5. Ibuprofen. 6. Fluconazole. 7. Acetaminophen. 8. Oxycodone. 9. Amlodipine. 10. Doxycycline. 11. Furosemide. ALLERGIES: LATEX, CEFTRIAXONE, CEPHALOSPORIN, PENICILLIN, YEAST, ADHESIVE TAPE , IODINATED CONTRAST AGENTS, PREDNISONE, EPINEPHRINE, TRAMADOL, CYCLOSPORIN, GABAPENTIN, SULFA ANTIBIOTICS, MOLD, PERFUMES, AIRBORNE ALLERGENS, FLUORIDE ALLERGY, HISTAMINES. FAMILY HISTORY: Mother with diabetes and hypertension. Father passed of coronary artery disease. History of hypertension and CVA in brother. SOCIAL HISTORY: Former smoker with 19-zxtz-dvor smoking history, quit in 1996, denied alcohol or recreational drug abuse, the patient is single and lives alone at home. She is disabled. REVIEW OF SYSTEMS: As per HPI, negative other than stated above. PHYSICAL EXAM: The patient is in bed in no apparent distress. Alert, awake, oriented x3. Vital Signs: Temperature: 98, pulse 75 beats per minute, respiratory rate 18 per minute, O2 saturation 100% on room air, blood pressure 136/51. HEENT: Pupils, equal, reactive to light, mucous membranes moist. Lungs : Good air entry bilaterally. No crackles or wheeze. Cardiovascular: S1, S2 present. Regular. No murmurs, gallops or rubs. Extremities: Chronic skin changes and lower extremities in bandage. Skin: Macular rash around her wrist. Neurologic: Alert, awake, oriented x3. No focal deficits. IMPRESSION AND RECOMMENDATIONS: 51-year-old female with multiple comorbidities including history of vasculitis/cryoglobulinemia, Sjogren's, pulmonary hypertension, systolic congestive heart failure, history of MRSA in the sputum, chronic nonhealing lower extremity ulcers with pseudomonas pneumonia and hemoptysis. 1. Pseudomonas pneumonia. 2. Abnormal CT chest. The patient with hemoptysis likely secondary to underlying pneumonia; however, given history of other comorbidities, history of renal failure, vasculitis and cryoglobulinemia, I also suspect vasculitis as the cause. The patient also has history of low-grade lymphoma, no significant mediastinal adenopathy noted. Pulmonary embolism is in differential since she is not mobile given lower extremity issues. She has history of CONTRAST allergy and has kidney failure, so she is being scheduled for a V/Q scan. The patient is currently being treated with antibiotics for her pseudomonal pneumonia. I have reviewed biopsy results from [facility]. The patient had lymph node and right lower lobe biopsy in the past, which did not reveal lymphoma in the lungs. Will monitor closely, hemoptysis is improving. If the patient continues to have worsening symptoms, might need bronchoscopy for further evaluation. Thank you for allowing me to participate in the care of your patient. Will follow up with you. [id number]/[facility] #: [id number] [place]
[2016-08-23] MEDS: Omeprazole CAP* 20 MG PO SCH (06:04)
[2016-08-23] MEDS: Lactobacillus Acidophilu (GG)* 1 CAP CAP PO SCH ×2 (08:22→22:08)
[2016-08-23] MEDS: cloNIDine TAB* 0.1 MG PO SCH ×3 (08:22→22:08)
[2016-08-23] MEDS: oxyCODONE TAB* 5 MG TAB PO PRN ×4 (08:22→23:46)
[2016-08-23] MEDS: Carvedilol TAB* 25 MG PO SCH ×2 (08:22→22:08)
[2016-08-23] MEDS: amLODIPine TAB* 5 MG PO SCH ×2 (08:22→22:08)
[2016-08-23] MEDS: Docusate CAP* 100 MG PO SCH ×2 (09:58→22:08)
[2016-08-23] MEDS ORDERED: Furosemide IV* 10 MG/ML VIAL (40 MG) IV ONE (10:22)
[2016-08-23] MEDS ORDERED: Magnesium Sulfate CRYSTAL* 454 GM BOX TOPICAL PRN (10:24)
--- NOTE | 2016-08-23 12:47 | RAD ---
Indication: Hemoptysis. Ventilation and perfusion lung scan was performed. Ventilation scan was performed after inhalation of 6.2 mCi of xenon-133. Perfusion lung scan was performed after intravenous injection of 6.4 mCi of technetium 99 and macroaggregated albumin. There is homogeneous distribution of the radiotracer on the perfusion lung scan. No evidence of segmental or subsegmental perfusion defects are identified. Ventilation lung scan demonstrates no evidence of air trapping. IMPRESSION: No evidence of segmental or subsegmental perfusion defects are noted. Normal ventilation and perfusion lung scan..
[2016-08-23] MEDS: Acetaminophen TAB* 325 MG PO PRN (13:23)
--- NOTE | 2016-08-23 15:45 | PN ---
Subjective Date of Service: 08/23/16 Interval History: HOSPITALIST PROGRESS NOTE Patient seen and examined at bedside. She feels better today, with less cough and less hemoptysis. Family History: Unchanged from Admission Social History: Unchanged from Admission Past Medical History: Unchanged from Admission Objective Active Medications: Acetaminophen (Tylenol Tab*) 650 mg PO Q6H PRN PRN Reason: FEVER/PAIN Last Admin: 08/23/16 13:23 Dose: 650 mg Albuterol (Ventolin 2.5 Mg/3 Ml Neb.Nancy*) 2.5 mg INH Q2H PRN PRN Reason: SOB/WHEEZING Amlodipine Besylate (Norvasc Tab*) 5 mg PO 0900,2099 [facility] Last Admin: 08/23/16 08:22 Dose: 5 mg Carvedilol (Coreg Tab*) 25 mg PO 0900,2099 [facility] Last Admin: 08/23/16 08:22 Dose: 25 mg Clonidine HCl (Catapres Tab*) 0.1 mg PO TID [facility] Last Admin: 08/23/16 13:23 Dose: 0.1 mg Docusate Sodium (Colace Cap*) 200 mg PO BID [facility] Last Admin: 08/23/16 09:58 Dose: Not Given Meropenem (Merrem 1 Gm Premix(*)) 1 gm in 50 mls @ 100 mls/hr IV Q8H [facility] Last Admin: 08/23/16 09:51 Dose: 100 mls/hr Lactobacillus Rhamnosus (Culturelle*) 1 cap PO BID [facility] Last Admin: 08/23/16 08:22 Dose: 1 cap Magnesium Sulfate (Epsom Salt*) 1 applic TOPICAL DAILY PRN PRN Reason: Foot pain Melatonin (Melatonin (Nf)) 3 mg PO BEDTIME PRN; Protocol PRN Reason: Sleep Miconazole Nitrate (Miconazole Vaginal Cream 2%*) 1 applic VAGINAL BEDTIME [facility] Last Admin: 08/22/16 22:14 Dose: 1 applic Omeprazole (Prilosec Cap*) 20 mg PO DAILY@0600 [facility] Last Admin: 08/23/16 06:04 Dose: Not Given Ondansetron HCl (Zofran Inj*) 4 mg IV Q6H PRN PRN Reason: NAUSEA Last Admin: 08/22/16 15:08 Dose: 4 mg Oxycodone HCl (Roxycodone Tab*) 10 mg PO Q5H PRN PRN Reason: PAIN Last Admin: 08/23/16 13:23 Dose: 10 mg Prochlorperazine Edisylate (Compazine Inj*) 5 mg IV Q6H PRN PRN Reason: NAUSEA/VOMITING Last Admin: 08/19/16 10:02 Dose: 1 ml Sodium Chloride (Sodium Chloride(Inhalant)0.9%*) 5 ml INH Q4H PRN PRN Reason: dryness/cough Last Admin: 08/21/16 16:37 Dose: 5 ml Vital Signs 08/23/16 08/23/16 08/23/16 08:00 08:22 11:45 Temperature 98.3 F Pulse Rate 69 Respiratory 16 16 16 Rate Blood Pressure 126/70 (mmHg) O2 Sat by Pulse 100 Oximetry Oxygen Devices in Use Now: None Appearance: Middle aged lady sitting up in bed in NAD. Eyes: No Scleral Icterus Ears/Nose/Mouth/Throat: Mucous Membranes Moist Neck: Trachea Midline Respiratory: Symmetrical Chest Expansion and Respiratory Effort, Clear to Auscultation Cardiovascular: RRR - Normal S1 and S2 Extremities: - - Mild LE edema Lines/Tubes/Other Access: Clean, Dry and Intact Peripheral IV Nutrition: Taking PO's Result Diagrams: 08/22/16 05:35 08/22/16 05:35 Assess/Plan/Problems-Billing Assessment: Mrs. Galicia is a 51yo F with PMH of HTN, CVA, CKD stage 3, vasculitis/ cryoglobulinemia, Sjogren's, pulmonary HTN, cardiomyopathy who presented with c/ o hemoptysis, found to have Pseudomonas PNA. - Patient Problems (1) Pseudomonas pneumonia Comment: - CT reviewed - shows left basilar pneumonia. - Sputum culture growing Pseudomonas. - ID consult appreciated - stop Ciprofloxacin as it may be associated with her rash and start Meropenem. - Pulm consult appreciated. - Check V/Q scan to r/o PE. - Aspirin on hold in the setting of hemoptysis. - Lung biopsy was negative for lymphoma, showed non specific inflammation. - Plan for possible bronch next week if hemoptysis persists. (2) Chronic wound of extremity Comment: - ID input appreciated - last week's culture done at [facility] grew Pseudomonas and enterococcus - continue Cipro. - Wound care appreciated - continue every other day dressings with Acticoat flex /ABD/roll gauze. (3) Hypertension Comment: - Controlled. - Continue Clonidine, Amlodipine, and Coreg. (4) CKD (chronic kidney disease), stage III Comment: - Creatinine back to baseline. (5) DVT prophylaxis Comment: - Pharmacological prophylaxis contraindicated due to hemoptysis. - SCDs. (6) Full code status Status and Disposition: Inpatient for IV antibiotics.
--- NOTE | 2016-08-23 18:30 | PN ---
Progress Note - Progress Note Note: Pulm consult f/u note 08/23/16. Pt seen and examined at bedside, Pt reports coughing up blood clots, no active bleeding Active Medications Generic Name Dose Route Start Last Admin Trade Name Freq PRN Reason Stop Dose Admin Acetaminophen 650 mg 08/18/16 20:10 08/23/16 13:23 Tylenol Tab* PO 650 mg Q6H PRN Administration FEVER/PAIN Albuterol 2.5 mg 08/18/16 20:10 Ventolin 2.5 Mg/3 Ml Neb.Nancy* INH Q2H PRN SOB/WHEEZING Amlodipine Besylate 5 mg 08/19/16 01:00 08/23/16 08:22 Norvasc Tab* PO 5 mg 0900,2100 [facility] Administration Carvedilol 25 mg 08/18/16 21:00 08/23/16 08:22 Coreg Tab* PO 25 mg 0900,2100 [facility] Administration Clonidine HCl 0.1 mg 08/19/16 09:00 08/23/16 13:23 Catapres Tab* PO 0.1 mg TID [facility] Administration Docusate Sodium 200 mg 08/18/16 21:00 08/23/16 09:58 Colace Cap* PO Not Given BID [facility] Meropenem 1 gm in 50 mls @ 100 mls/hr 08/22/16 10:00 08/23/16 18:21 Merrem 1 Gm Premix(*) IV 100 mls/hr Q8H [facility] Administration Lactobacillus Rhamnosus 1 cap 08/22/16 13:00 08/23/16 08:22 Culturelle* PO 1 cap BID [facility] Administration Magnesium Sulfate 1 applic 08/23/16 10:24 Epsom Salt* TOPICAL DAILY PRN Foot pain Melatonin 3 mg 08/18/16 20:10 Melatonin (Nf) PO BEDTIME PRN Sleep Protocol Miconazole Nitrate 1 applic 08/21/16 21:00 08/22/16 22:14 Miconazole Vaginal Cream 2%* VAGINAL 1 applic BEDTIME [facility] Administration Omeprazole 20 mg 08/19/16 06:00 08/23/16 06:04 Prilosec Cap* PO Not Given DAILY@0600 [facility] Ondansetron HCl 4 mg 08/18/16 20:10 08/22/16 15:08 Zofran Inj* IV 4 mg Q6H PRN Administration NAUSEA Oxycodone HCl 10 mg 08/19/16 08:37 08/23/16 18:15 Roxycodone Tab* PO 10 mg Q5H PRN Administration PAIN Prochlorperazine Edisylate 5 mg 08/19/16 08:39 08/19/16 10:02 Compazine Inj* IV 1 ml Q6H PRN Administration NAUSEA/VOMITING Sodium Chloride 5 ml 08/20/16 10:15 08/21/16 16:37 Sodium Chloride(Inhalant)0.9%* INH 5 ml Q4H PRN Administration dryness/cough Vital Signs Temp Pulse Resp BP Pulse Ox 98.3 F 69 18 126/70 100 08/23/16 11:45 08/23/16 11:45 08/23/16 18:15 08/23/16 11:45 08/23/16 11:45 Gen: Pt in bed in NAD. HEENT: No Scleral Icterus, Mucous Membranes Moist Neck: Trachea Midline Respiratory: Symmetrical Chest Expansion and Respiratory Effort, Clear to Auscultation Cardiovascular: RRR, Normal S1 and S2 Extremities: Mild LE edema I/R: Pt is a 51yo F with PMH of HTN, CVA, CKD stage 3, vasculitis/cryoglobulinemia, Sjogren's, pulmonary HTN, cardiomyopathy who presented with c/o hemoptysis, found to have Pseudomonas PNA. CT reviewed - shows left basilar pneumonia. No endobronchial lesions - Sputum culture growing Pseudomonas, stopped Ciprofloxacin due to rash and started on Meropenem. - No active bleeding - V/Q scan reviewed- No PE. - Aspirin on hold in the setting of hemoptysis. - Lung biopsy was negative for lymphoma in 2014, showed non specific inflammation. - Plan for possible bronch next week if hemoptysis persists. D/w pt and Dr Watkins
[2016-08-23] MEDS: Miconazole VAGINAL CREAM 2%* 45 GM VAGINAL SCH (22:09)
[2016-08-24] MEDS: Meropenem 1 GM PREMIX(*) 1 GM/50 ML BAG IV SCH ×3 (02:08→18:18)
[2016-08-24] MEDS: Triamcinolone 0.025% OINT * 15 GM TUBE TOPICAL PRN ×3 (02:09→12:41)
[2016-08-24] MEDS: oxyCODONE TAB* 5 MG TAB PO PRN ×4 (05:36→21:45)
[2016-08-24] MEDS: Omeprazole CAP* 20 MG PO SCH (05:36)
[2016-08-24] MEDS: Docusate CAP* 100 MG PO SCH ×2 (07:22→21:47)
[2016-08-24] MEDS: amLODIPine TAB* 5 MG PO SCH ×2 (07:57→21:46)
[2016-08-24] MEDS: Lactobacillus Acidophilu (GG)* 1 CAP CAP PO SCH ×2 (07:57→21:45)
[2016-08-24] MEDS: Carvedilol TAB* 25 MG PO SCH ×2 (07:57→21:46)
[2016-08-24] MEDS: cloNIDine TAB* 0.1 MG PO SCH ×3 (07:57→21:46)
[2016-08-24] MEDS: Ondansetron INJ* 2 MG/ML VIAL IV PRN (08:03)
[2016-08-24] MEDS ORDERED: Metolazone TAB* 5 MG PO ONE (12:08)
[2016-08-24] MEDS ORDERED: Furosemide IV* 10 MG/ML VIAL (40 MG) IV SLOW PU ONE (12:38)
[2016-08-24] MEDS ORDERED: diPHENhydraMINE PO* 25 MG PO PRN (15:18)
--- NOTE | 2016-08-24 16:07 | PN ---
Subjective Date of Service: 08/24/16 Interval History: HOSPITALIST PROGRESS NOTE Patient seen and examined at bedside. Hemoptysis still present, but less intense. Denies dyspnea or chest pain. Rash is clearing up, but still itchy. Concerned with her weight gain and edema. Family History: Unchanged from Admission Social History: Unchanged from Admission Past Medical History: Unchanged from Admission Objective Active Medications: Acetaminophen (Tylenol Tab*) 650 mg PO Q6H PRN PRN Reason: FEVER/PAIN Last Admin: 08/23/16 13:23 Dose: 650 mg Albuterol (Ventolin 2.5 Mg/3 Ml Neb.Nancy*) 2.5 mg INH Q2H PRN PRN Reason: SOB/WHEEZING Amlodipine Besylate (Norvasc Tab*) 5 mg PO 0900,2100 [facility] Last Admin: 08/24/16 07:57 Dose: 5 mg Carvedilol (Coreg Tab*) 25 mg PO 0900,2100 [facility] Last Admin: 08/24/16 07:57 Dose: 25 mg Clonidine HCl (Catapres Tab*) 0.1 mg PO TID [facility] Last Admin: 08/24/16 13:10 Dose: 0.1 mg Docusate Sodium (Colace Cap*) 200 mg PO BID [facility] Last Admin: 08/24/16 07:22 Dose: Not Given Meropenem (Merrem 1 Gm Premix(*)) 1 gm in 50 mls @ 100 mls/hr IV Q8H [facility] Last Admin: 08/24/16 10:50 Dose: 100 mls/hr Lactobacillus Rhamnosus (Culturelle*) 1 cap PO BID [facility] Last Admin: 08/24/16 07:57 Dose: 1 cap Magnesium Sulfate (Epsom Salt*) 1 applic TOPICAL DAILY PRN PRN Reason: Foot pain Last Admin: 08/23/16 18:30 Dose: 1 applic Melatonin (Melatonin (Nf)) 3 mg PO BEDTIME PRN; Protocol PRN Reason: Sleep Miconazole Nitrate (Miconazole Vaginal Cream 2%*) 1 applic VAGINAL BEDTIME [facility] Last Admin: 08/23/16 22:09 Dose: Not Given Omeprazole (Prilosec Cap*) 20 mg PO DAILY@0600 [facility] Last Admin: 08/24/16 05:36 Dose: Not Given Ondansetron HCl (Zofran Inj*) 4 mg IV Q6H PRN PRN Reason: NAUSEA Last Admin: 08/24/16 08:03 Dose: 4 mg Oxycodone HCl (Roxycodone Tab*) 10 mg PO Q5H PRN PRN Reason: PAIN Last Admin: 08/24/16 15:48 Dose: 10 mg Prochlorperazine Edisylate (Compazine Inj*) 5 mg IV Q6H PRN PRN Reason: NAUSEA/VOMITING Last Admin: 08/19/16 10:02 Dose: 1 ml Sodium Chloride (Sodium Chloride(Inhalant)0.9%*) 5 ml INH Q4H PRN PRN Reason: dryness/cough Last Admin: 08/21/16 16:37 Dose: 5 ml Triamcinolone Acetonide (Triamcinolone 0.025% Oint *) 1 applic TOPICAL BID PRN PRN Reason: PRURITIS Last Admin: 08/24/16 12:41 Dose: 1 applic Vital Signs 08/24/16 08/24/16 08/24/16 05:36 07:31 07:36 Temperature 98.5 F Pulse Rate 75 Respiratory 16 16 18 Rate Blood Pressure 136/80 (mmHg) O2 Sat by Pulse 98 Oximetry Oxygen Devices in Use Now: None Appearance: Middle aged lady sitting up in bed in [facility]. Eyes: No Scleral Icterus Ears/Nose/Mouth/Throat: Mucous Membranes Moist Neck: Trachea Midline Respiratory: Symmetrical Chest Expansion and Respiratory Effort, Clear to Auscultation Cardiovascular: RRR - Normal S1 and S2 Abdominal: NL Sounds; No Tenderness; No Distention Extremities: - - Mild LE edema Neurological: Alert and Oriented x 3, NL Muscle Strength and Tone Lines/Tubes/Other Access: Clean, Dry and Intact Peripheral IV Nutrition: Taking PO's Result Diagrams: 08/22/16 05:35 08/22/16 05:35 Assess/Plan/Problems-Billing Assessment: Mrs. Galicia is a 51yo F with PMH of HTN, CVA, CKD stage 3, vasculitis/ cryoglobulinemia, Sjogren's, pulmonary HTN, cardiomyopathy who presented with c/ o hemoptysis, found to have Pseudomonas PNA. - Patient Problems (1) Pseudomonas pneumonia Comment: - CT reviewed - shows left basilar pneumonia. - Sputum culture growing Pseudomonas. - ID consult appreciated - stop Ciprofloxacin as it may be associated with her rash and start Meropenem. - Pulm consult appreciated. - Check V/Q scan to r/o PE. - Aspirin on hold in the setting of hemoptysis. - Lung biopsy was negative for lymphoma, showed non specific inflammation. - Plan for possible bronch next week if hemoptysis persists. (2) Chronic wound of extremity Comment: - ID input appreciated - last week's culture done at [facility] grew Pseudomonas and enterococcus - continue Cipro. - Wound care appreciated - continue every other day dressings with Acticoat flex /ABD/roll gauze. - Plan for HPB therapy at [facility] when discharged. (3) Hypertension Comment: - Controlled. - Continue Clonidine, Amlodipine, and Coreg. (4) CKD (chronic kidney disease), stage III Comment: - Creatinine back to baseline. (5) Edema Comment: - Will start Metolazone and Furosemide and monitor renal function. (6) DVT prophylaxis Comment: - Pharmacological prophylaxis contraindicated due to hemoptysis. - SCDs. (7) Full code status Status and Disposition: Inpatient for IV antibiotics.
[2016-08-24] MEDS: Ascorbic Acid TAB* 500 MG PO SCH (21:46)
[2016-08-24] MEDS: Miconazole VAGINAL CREAM 2%* 45 GM VAGINAL SCH (21:47)
[2016-08-25] MEDS: Triamcinolone 0.025% OINT * 15 GM TUBE TOPICAL PRN (02:20)
[2016-08-25] MEDS: Meropenem 1 GM PREMIX(*) 1 GM/50 ML BAG IV SCH ×3 (02:21→17:49)
[2016-08-25] MEDS: oxyCODONE TAB* 5 MG TAB PO PRN ×4 (02:59→19:59)
[2016-08-25] MEDS: Omeprazole CAP* 20 MG PO SCH (05:31)
[2016-08-25] MEDS: Acetaminophen TAB* 325 MG PO PRN ×3 (06:20→22:43)
[2016-08-25 07:30] LABS: Hematocrit 26 % (35-47); Hemoglobin 8.7 g/dl (12.0-16.0); Mean Corpuscular HGB Conc 34 g/dl (31-36); Mean Corpuscular Hemoglobin 30 pg (27-31); Mean Corpuscular Volume 90 fL (80-97); Mean Platelet Volume 7 um3 (7.4-10.4); Red Blood Count 2.88 10^6/ul (4.0-5.4); Red Cell Distribution Width 15 % (10.5-15)
[2016-08-25] MEDS: Docusate CAP* 100 MG PO SCH ×2 (07:43→20:01)
[2016-08-25] MEDS: Carvedilol TAB* 25 MG PO SCH ×2 (07:44→20:01)
[2016-08-25] MEDS: cloNIDine TAB* 0.1 MG PO SCH ×3 (07:44→20:01)
[2016-08-25 07:45] LABS: BUN/Creatinine Ratio 21.9 (8-20); C Reactive Protein 14.67 mg/L (< 5.00); Calcium 8.6 mg/dL (8.6-10.3); EGFR African American 51.9 (>60); EGFR Non-African American 40.3 (>60); Potassium 4.1 mmol/L (3.5-5.0)
[2016-08-25] MEDS: amLODIPine TAB* 5 MG PO SCH ×2 (07:45→20:01)
[2016-08-25] MEDS: Lactobacillus Acidophilu (GG)* 1 CAP CAP PO SCH ×2 (07:45→20:01)
[2016-08-25] MEDS: Ascorbic Acid TAB* 500 MG PO SCH (07:45)
[2016-08-25] MEDS ORDERED: Metolazone TAB* 5 MG PO ONE (08:32)
[2016-08-25] MEDS ORDERED: Metolazone TAB* 5 MG ONE (08:36)
[2016-08-25 08:40] LABS: Folate 12.88 ng/mL (>3.99)
[2016-08-25] MEDS ORDERED: Furosemide IV* 10 MG/ML VIAL (40 MG) IV ONE (09:00)
[2016-08-25 09:32] LABS: Ferritin 2085.5 ng/mL (11-307)
[2016-08-25] MEDS: Sodium Chloride(INHALANT)0.9%* 5 ML NEB.SOLN INH PRN (10:46)
--- NOTE | 2016-08-25 15:10 | PN ---
Subjective Date of Service: 08/25/16 Interval History: HOSPITALIST PROGRESS NOTE Patient seen and examined at bedside. She offers no new complaints today. Still has productive cough, but with minimal hemoptysis. Family History: Unchanged from Admission Social History: Unchanged from Admission Past Medical History: Unchanged from Admission Objective Active Medications: Acetaminophen (Tylenol Tab*) 650 mg PO Q6H PRN PRN Reason: FEVER/PAIN Last Admin: 08/25/16 13:18 Dose: 650 mg Albuterol (Ventolin 2.5 Mg/3 Ml Neb.Nancy*) 2.5 mg INH Q2H PRN PRN Reason: SOB/WHEEZING Amlodipine Besylate (Norvasc Tab*) 5 mg PO 0900,2100 [facility] Last Admin: 08/25/16 07:45 Dose: 5 mg Ascorbic Acid (Vitamin C Tab*) 500 mg PO DAILY [facility] Last Admin: 08/25/16 07:45 Dose: 500 mg Carvedilol (Coreg Tab*) 25 mg PO 0900,2100 [facility] Last Admin: 08/25/16 07:44 Dose: 25 mg Clonidine HCl (Catapres Tab*) 0.1 mg PO TID [facility] Last Admin: 08/25/16 13:14 Dose: 0.1 mg Docusate Sodium (Colace Cap*) 200 mg PO BID [facility] Last Admin: 08/25/16 07:43 Dose: Not Given Meropenem (Merrem 1 Gm Premix(*)) 1 gm in 50 mls @ 100 mls/hr IV Q8H [facility] Last Admin: 08/25/16 09:06 Dose: 100 mls/hr Lactobacillus Rhamnosus (Culturelle*) 1 cap PO BID [facility] Last Admin: 08/25/16 07:45 Dose: 1 cap Magnesium Sulfate (Epsom Salt*) 1 applic TOPICAL DAILY PRN PRN Reason: Foot pain Last Admin: 08/23/16 18:30 Dose: 1 applic Melatonin (Melatonin (Nf)) 3 mg PO BEDTIME PRN; Protocol PRN Reason: Sleep Miconazole Nitrate (Miconazole Vaginal Cream 2%*) 1 applic VAGINAL BEDTIME [facility] Last Admin: 08/24/16 21:47 Dose: Not Given Omeprazole (Prilosec Cap*) 20 mg PO DAILY@0600 [facility] Last Admin: 08/25/16 05:31 Dose: Not Given Ondansetron HCl (Zofran Inj*) 4 mg IV Q6H PRN PRN Reason: NAUSEA Last Admin: 08/24/16 08:03 Dose: 4 mg Oxycodone HCl (Roxycodone Tab*) 10 mg PO Q5H PRN PRN Reason: PAIN Last Admin: 08/25/16 13:14 Dose: 10 mg Prochlorperazine Edisylate (Compazine Inj*) 5 mg IV Q6H PRN PRN Reason: NAUSEA/VOMITING Last Admin: 08/19/16 10:02 Dose: 1 ml Sodium Chloride (Sodium Chloride(Inhalant)0.9%*) 5 ml INH Q4H PRN PRN Reason: dryness/cough Last Admin: 08/25/16 10:46 Dose: 5 ml Triamcinolone Acetonide (Triamcinolone 0.025% Oint *) 1 applic TOPICAL BID PRN PRN Reason: PRURITIS Last Admin: 08/25/16 02:20 Dose: 1 applic Vital Signs 08/25/16 08/25/16 08/25/16 02:59 04:59 07:44 Temperature 98.3 F Pulse Rate 73 Respiratory 16 16 16 Rate Blood Pressure 133/72 (mmHg) O2 Sat by Pulse 95 Oximetry Oxygen Devices in Use Now: None Appearance: Middle aged lady sitting up in bed in [facility]. Eyes: No Scleral Icterus Ears/Nose/Mouth/Throat: Mucous Membranes Moist Neck: Trachea Midline Respiratory: Symmetrical Chest Expansion and Respiratory Effort, Clear to Auscultation Cardiovascular: RRR - Normal S1 and S2 Abdominal: NL Sounds; No Tenderness; No Distention Neurological: Alert and Oriented x 3, NL Muscle Strength and Tone Lines/Tubes/Other Access: Clean, Dry and Intact Peripheral IV Nutrition: Taking PO's Result Diagrams: 08/25/16 07:13 08/25/16 07:13 Assess/Plan/Problems-Billing Assessment: Mrs. Galicia is a 51yo F with PMH of HTN, CVA, CKD stage 3, vasculitis/ cryoglobulinemia, Sjogren's, pulmonary HTN, cardiomyopathy who presented with c/ o hemoptysis, found to have Pseudomonas PNA. - Patient Problems (1) Pseudomonas pneumonia Comment: - CT reviewed - shows left basilar pneumonia. - Sputum culture growing Pseudomonas. - ID consult appreciated - stopped Ciprofloxacin as it may be associated with her rash and start Meropenem. - Pulm consult appreciated. - V/Q scan was negative for PE. - Aspirin on hold in the setting of hemoptysis. - Lung biopsy was negative for lymphoma, showed non specific inflammation. - Plan for possible bronch next week if hemoptysis persists. (2) Chronic wound of extremity Comment: - ID input appreciated - last week's culture done at [facility] grew Pseudomonas and enterococcus - continue Cipro. - Wound care appreciated - continue every other day dressings with Acticoat flex /ABD/roll gauze. - Plan for HPB therapy at [facility] when discharged. (3) Hypertension Comment: - Controlled. - Continue Clonidine, Amlodipine, and Coreg. (4) CKD (chronic kidney disease), stage III Comment: - Creatinine back to baseline. (5) Edema Comment: - Will start Metolazone and Furosemide and monitor renal function. (6) DVT prophylaxis Comment: - Pharmacological prophylaxis contraindicated due to hemoptysis. - SCDs. (7) Full code status Status and Disposition: Inpatient for IV antibiotics.
[2016-08-25] MEDS: Miconazole VAGINAL CREAM 2%* 45 GM VAGINAL SCH (20:09)
[2016-08-26] MEDS: oxyCODONE TAB* 5 MG TAB PO PRN ×4 (00:54→17:42)
[2016-08-26] MEDS: Meropenem 1 GM PREMIX(*) 1 GM/50 ML BAG IV SCH ×3 (00:54→17:43)
[2016-08-26] MEDS: Omeprazole CAP* 20 MG PO SCH (04:10)
[2016-08-26] MEDS: Ondansetron INJ* 2 MG/ML VIAL IV PRN (08:44)
[2016-08-26] MEDS: Lactobacillus Acidophilu (GG)* 1 CAP CAP PO SCH ×2 (09:40→20:36)
[2016-08-26] MEDS: Ascorbic Acid TAB* 500 MG PO SCH (09:40)
[2016-08-26] MEDS: amLODIPine TAB* 5 MG PO SCH ×2 (09:40→20:37)
[2016-08-26] MEDS: cloNIDine TAB* 0.1 MG PO SCH ×3 (09:40→20:48)
[2016-08-26] MEDS: Carvedilol TAB* 25 MG PO SCH ×2 (09:42→20:48)
[2016-08-26] MEDS: Docusate CAP* 100 MG PO SCH ×2 (09:47→20:24)
[2016-08-26] MEDS ORDERED: Furosemide IV* 10 MG/ML VIAL (40 MG) IV SLOW PU ONE (11:31)
[2016-08-26] MEDS ORDERED: Metolazone TAB* 5 MG PO ONE (11:31)
--- NOTE | 2016-08-26 11:32 | PN ---
Subjective Date of Service: 08/26/16 Interval History: Patient seen and examined at bedside. She reports hemoptysis that has lessened in amount. She is concerned for 8# weight gain since admission and continued pitting edema. She wishes to continue with the IV Lasix and Zaroxolyn. No other complaints. Denies CP, SOB, n/v. Family History: Unchanged from Admission Social History: Unchanged from Admission Past Medical History: Unchanged from Admission Objective Active Medications: Acetaminophen (Tylenol Tab*) 650 mg PO Q6H PRN PRN Reason: FEVER/PAIN Last Admin: 08/25/16 22:43 Dose: 650 mg Albuterol (Ventolin 2.5 Mg/3 Ml Neb.Nancy*) 2.5 mg INH Q2H PRN PRN Reason: SOB/WHEEZING Amlodipine Besylate (Norvasc Tab*) 5 mg PO 899,2099 [facility] Last Admin: 08/26/16 09:40 Dose: 5 mg Ascorbic Acid (Vitamin C Tab*) 500 mg PO DAILY [facility] Last Admin: 08/26/16 09:40 Dose: 500 mg Carvedilol (Coreg Tab*) 25 mg PO 899,2099 [facility] Last Admin: 08/26/16 09:42 Dose: 25 mg Clonidine HCl (Catapres Tab*) 0.1 mg PO TID [facility] Last Admin: 08/26/16 09:40 Dose: 0.1 mg Docusate Sodium (Colace Cap*) 200 mg PO BID [facility] Last Admin: 08/26/16 09:47 Dose: Not Given Furosemide (Lasix Iv*) 40 mg IV SLOW PU ONCE ONE Stop: 08/26/16 11:32 Meropenem (Merrem 1 Gm Premix(*)) 1 gm in 50 mls @ 100 mls/hr IV Q8H [facility] Last Admin: 08/26/16 09:46 Dose: 100 mls/hr Lactobacillus Rhamnosus (Culturelle*) 1 cap PO BID [facility] Last Admin: 08/26/16 09:40 Dose: 1 cap Magnesium Sulfate (Epsom Salt*) 1 applic TOPICAL DAILY PRN PRN Reason: Foot pain Last Admin: 08/23/16 18:30 Dose: 1 applic Melatonin (Melatonin (Nf)) 3 mg PO BEDTIME PRN; Protocol PRN Reason: Sleep Metolazone (Zaroxolyn Tab*) 5 mg PO ONCE ONE Stop: 08/26/16 11:32 Miconazole Nitrate (Miconazole Vaginal Cream 2%*) 1 applic VAGINAL BEDTIME [facility] Last Admin: 08/25/16 20:09 Dose: Not Given Omeprazole (Prilosec Cap*) 20 mg PO DAILY@0600 [facility] Last Admin: 08/26/16 04:10 Dose: Not Given Ondansetron HCl (Zofran Inj*) 4 mg IV Q6H PRN PRN Reason: NAUSEA Last Admin: 08/26/16 08:44 Dose: 4 mg Oxycodone HCl (Roxycodone Tab*) 10 mg PO Q5H PRN PRN Reason: PAIN Last Admin: 08/26/16 11:24 Dose: 10 mg Prochlorperazine Edisylate (Compazine Inj*) 5 mg IV Q6H PRN PRN Reason: NAUSEA/VOMITING Last Admin: 08/19/16 10:02 Dose: 1 ml Sodium Chloride (Sodium Chloride(Inhalant)0.9%*) 5 ml INH Q4H PRN PRN Reason: dryness/cough Last Admin: 08/25/16 10:46 Dose: 5 ml Triamcinolone Acetonide (Triamcinolone 0.025% Oint *) 1 applic TOPICAL BID PRN PRN Reason: PRURITIS Last Admin: 08/25/16 02:20 Dose: 1 applic Vital Signs 08/25/16 08/25/16 08/25/16 12:07 13:14 15:14 Temperature 97.6 F Pulse Rate 70 Respiratory 16 18 18 Rate Blood Pressure 134/74 (mmHg) O2 Sat by Pulse 99 Oximetry 08/25/16 08/25/16 08/25/16 16:11 19:59 20:00 Temperature 98.1 F Pulse Rate 74 Respiratory 16 16 Rate Blood Pressure 127/66 (mmHg) O2 Sat by Pulse 98 Oximetry 08/25/16 08/25/16 08/25/16 20:02 21:59 23:57 Temperature 98.0 F Pulse Rate 76 71 Respiratory 16 16 Rate Blood Pressure 141/72 135/73 (mmHg) O2 Sat by Pulse 96 96 Oximetry 08/26/16 08/26/16 08/26/16 00:54 02:54 06:24 Temperature Pulse Rate Respiratory 16 16 18 Rate Blood Pressure (mmHg) O2 Sat by Pulse Oximetry 08/26/16 08/26/16 08/26/16 08:23 08:24 08:46 Temperature 98.2 F Pulse Rate 78 78 Respiratory 16 16 18 Rate Blood Pressure 136/86 (mmHg) O2 Sat by Pulse 98 98 Oximetry 08/26/16 11:24 Temperature Pulse Rate Respiratory 16 Rate Blood Pressure (mmHg) O2 Sat by Pulse Oximetry Oxygen Devices in Use Now: None Appearance: Middle aged female, lying in bed, NAD Eyes: PERRLA Ears/Nose/Mouth/Throat: Mucous Membranes Moist Neck: NL Appearance and Movements; NL JVP Respiratory: Symmetrical Chest Expansion and Respiratory Effort, Clear to Auscultation Cardiovascular: NL Sounds; No Murmurs; No JVD, RRR Abdominal: NL Sounds; No Tenderness; No Distention Extremities: - - 1-2+ pitting edema to BLE Neurological: Alert and Oriented x 3 Lines/Tubes/Other Access: Clean, Dry and Intact Peripheral IV Nutrition: Taking PO's Result Diagrams: 08/25/16 07:13 08/25/16 07:13 Additional Lab and Data: Microbiology and Other Data: Microbiology 08/18/16 20:30 Legionella Urinary Antigen - Final Urine Negative Legionella Streptococcus pneumoniae Ag Screen - Final Negative S. pneumo Antigen 08/18/16 21:35 Gram Stain - Final Sputum 08/18/16 21:40 Influenza Types A,B Antigen ([facility]) - Final Nasal Specimen received for Influenza A/B Molecular testing Assess/Plan/Problems-Billing Assessment: Mrs. Galicia is a 51yo F with PMH of HTN, CVA, CKD stage 3, vasculitis/ cryoglobulinemia, Sjogren's, pulmonary HTN, cardiomyopathy who presented with c/ o hemoptysis, found to have Pseudomonas PNA. - Patient Problems (1) Pseudomonas pneumonia Comment: - CT reviewed - shows left basilar pneumonia. - Sputum culture growing Pseudomonas. - ID consult appreciated - continue meropenem (Cipro associated with rash) - Pulm consult appreciated. - V/Q scan was negative for PE. - Aspirin on hold in the setting of hemoptysis. - Lung biopsy was negative for lymphoma, showed non specific inflammation. - Plan for possible bronch this week if hemoptysis persists. (2) Chronic wound of extremity Code(s): CXL2543 - Comment: - ID input appreciated - last week's culture done at [facility] grew Pseudomonas and enterococcus - Cipro stopped with concern for rash, continue meropenem. - Wound care appreciated - continue every other day dressings with Acticoat flex /ABD/roll gauze. - Plan for HPB therapy at [facility] when discharged. (3) Hypertension Code(s): I10 - ESSENTIAL (PRIMARY) HYPERTENSION Comment: - Controlled. - Continue Clonidine, Amlodipine, and Coreg. (4) CKD (chronic kidney disease), stage III Code(s): N18.3 - CHRONIC KIDNEY DISEASE, STAGE 3 (MODERATE) Comment: - Creatinine back to baseline. (5) Edema Code(s): R60.9 - EDEMA, UNSPECIFIED Comment: Continue metolazone and IV furosemide. Monitor renal function. (6) DVT prophylaxis Code(s): NJL5182 - Comment: - Pharmacological prophylaxis contraindicated due to hemoptysis. - SCDs. (7) Full code status Code(s): Z78.9 - OTHER SPECIFIED HEALTH STATUS Status and Disposition: Inpatient for IV antibiotics.
[2016-08-26] MEDS ORDERED: Fluconazole 100 MG TAB* TAB PO ONE (18:40)
--- NOTE | 2016-08-26 19:29 | PN ---
Progress Note - Progress Note Note: Pulm consult f/u note 08/26/16. Pt seen and examined at bedside, Pt reports coughing up blood clots, no active bleeding Active Medications Generic Name Dose Route Start Last Admin Trade Name Freq PRN Reason Stop Dose Admin Acetaminophen 650 mg 08/18/16 20:10 08/25/16 22:43 Tylenol Tab* PO 650 mg Q6H PRN Administration FEVER/PAIN Albuterol 2.5 mg 08/18/16 20:10 Ventolin 2.5 Mg/3 Ml Neb.Nancy* INH Q2H PRN SOB/WHEEZING Amlodipine Besylate 5 mg 08/19/16 01:00 08/26/16 09:40 Norvasc Tab* PO 5 mg 0900,2100 CHAITANYA Administration Ascorbic Acid 500 mg 08/24/16 20:00 08/26/16 09:40 Vitamin C Tab* PO 500 mg DAILY CHAITANYA Administration Carvedilol 25 mg 08/18/16 21:00 08/26/16 09:42 Coreg Tab* PO 25 mg 0900,2100 CHAITANYA Administration Clonidine HCl 0.1 mg 08/19/16 09:00 08/26/16 14:33 Catapres Tab* PO 0.1 mg TID CHAITANYA Administration Docusate Sodium 200 mg 08/18/16 21:00 08/26/16 09:47 Colace Cap* PO Not Given BID CHAITANYA Fluconazole 150 mg 08/26/16 18:40 Diflucan 150 Mg (Nf) PO 08/26/16 18:41 ONCE ONE Meropenem 1 gm in 50 mls @ 100 mls/hr 08/22/16 10:00 08/26/16 17:43 Merrem 1 Gm Premix(*) IV 100 mls/hr Q8H CHAITANYA Administration Lactobacillus Rhamnosus 1 cap 08/22/16 13:00 08/26/16 09:40 Culturelle* PO 1 cap BID CHAITANYA Administration Magnesium Sulfate 1 applic 08/23/16 10:24 08/23/16 18:30 Epsom Salt* TOPICAL 1 applic DAILY PRN Administration Foot pain Melatonin 3 mg 08/18/16 20:10 Melatonin (Nf) PO BEDTIME PRN Sleep Protocol Miconazole Nitrate 1 applic 08/21/16 21:00 08/25/16 20:09 Miconazole Vaginal Cream 2%* VAGINAL Not Given BEDTIME CHAITANYA Omeprazole 20 mg 08/19/16 06:00 08/26/16 04:10 Prilosec Cap* PO Not Given DAILY@0600 CHAITANYA Ondansetron HCl 4 mg 08/18/16 20:10 08/26/16 08:44 Zofran Inj* IV 4 mg Q6H PRN Administration NAUSEA Oxycodone HCl 10 mg 08/19/16 08:37 08/26/16 17:42 Roxycodone Tab* PO 10 mg Q5H PRN Administration PAIN Prochlorperazine Edisylate 5 mg 08/19/16 08:39 08/19/16 10:02 Compazine Inj* IV 1 ml Q6H PRN Administration NAUSEA/VOMITING Sodium Chloride 5 ml 08/20/16 10:15 08/25/16 10:46 Sodium Chloride(Inhalant)0.9%* INH 5 ml Q4H PRN Administration dryness/cough Triamcinolone Acetonide 1 applic 08/24/16 00:17 08/25/16 02:20 Triamcinolone 0.025% Oint * TOPICAL 1 applic BID PRN Administration PRURITIS Vital Signs Temp Pulse Resp BP Pulse Ox 98.2 F 78 14 136/86 98 08/26/16 08:23 08/26/16 08:46 08/26/16 17:42 08/26/16 08:23 08/26/16 08:46 Gen: Pt in bed in NAD. HEENT: No Scleral Icterus, Mucous Membranes Moist Neck: Trachea Midline Respiratory: Symmetrical Chest Expansion and Respiratory Effort, Clear to Auscultation Cardiovascular: RRR, Normal S1 and S2 Extremities: Mild LE edema I/R: Pt is a 51yo F with PMH of HTN, CVA, CKD stage 3, vasculitis/cryoglobulinemia, Sjogren's, pulmonary HTN, cardiomyopathy who presented with c/o hemoptysis, found to have Pseudomonas PNA. CT reviewed - shows left basilar pneumonia. No endobronchial lesions - Sputum culture growing Pseudomonas, stopped Ciprofloxacin due to rash and started on Meropenem. - No active bleeding - V/Q scan reviewed- No PE. - Aspirin on hold in the setting of hemoptysis. - Lung biopsy was negative for lymphoma in 2014, showed non specific inflammation. - Plan for possible bronch if hemoptysis persists. Discussed with pt D/w pt and Anastasiia Johnson NP
[2016-08-26] MEDS: Miconazole VAGINAL CREAM 2%* 45 GM VAGINAL SCH (20:50)
[2016-08-26] MEDS: Acetaminophen TAB* 325 MG PO PRN (20:55)
[2016-08-27] MEDS: oxyCODONE TAB* 5 MG TAB PO PRN ×5 (01:03→23:27)
[2016-08-27] MEDS: Meropenem 1 GM PREMIX(*) 1 GM/50 ML BAG IV SCH ×3 (01:03→17:55)
[2016-08-27] MEDS: Omeprazole CAP* 20 MG PO SCH (05:42)
[2016-08-27 06:01] LABS: Hematocrit 27 % (35-47); Hemoglobin 9.1 g/dl (12.0-16.0); Mean Corpuscular HGB Conc 34 g/dl (31-36); Mean Corpuscular Hemoglobin 30 pg (27-31); Mean Corpuscular Volume 89 fL (80-97); Mean Platelet Volume 7 um3 (7.4-10.4); Red Blood Count 3.02 10^6/ul (4.0-5.4); Red Cell Distribution Width 15 % (10.5-15); White Blood Count 3.7 10^3/ul (3.5-10.8)
[2016-08-27 06:19] LABS: BUN/Creatinine Ratio 23.3 (8-20); Calcium 8.6 mg/dL (8.6-10.3); EGFR African American 53.7 (>60); EGFR Non-African American 41.7 (>60)
[2016-08-27] MEDS: Triamcinolone 0.025% OINT * 15 GM TUBE TOPICAL PRN (07:36)
[2016-08-27] MEDS: Ascorbic Acid TAB* 500 MG PO SCH (07:37)
[2016-08-27] MEDS: Lactobacillus Acidophilu (GG)* 1 CAP CAP PO SCH ×2 (07:37→20:21)
[2016-08-27] MEDS: cloNIDine TAB* 0.1 MG PO SCH ×3 (07:38→20:21)
[2016-08-27] MEDS: amLODIPine TAB* 5 MG PO SCH ×2 (07:38→20:21)
[2016-08-27] MEDS: Carvedilol TAB* 25 MG PO SCH ×2 (07:38→20:21)
[2016-08-27] MEDS: Docusate CAP* 100 MG PO SCH ×2 (07:42→20:24)
[2016-08-27] MEDS ORDERED: Furosemide IV* 10 MG/ML VIAL (40 MG) IV SLOW PU ONE (07:54)
[2016-08-27] MEDS ORDERED: Metolazone TAB* 5 MG PO ONE (07:54)
[2016-08-27] MEDS: Sodium Chloride(INHALANT)0.9%* 5 ML NEB.SOLN INH PRN (08:03)
[2016-08-27] MEDS: Acetaminophen TAB* 325 MG PO PRN (11:14)
[2016-08-27] MEDS: Ondansetron INJ* 2 MG/ML VIAL IV PRN (11:20)
--- NOTE | 2016-08-27 13:56 | PN ---
Subjective Date of Service: 08/27/16 Interval History: Patient seen and examined at bedside. Reports minimal hemoptysis. She expressed a desire to make her hyperbaric wound care evaluation appointment in [place] this Friday. She would prefer to postpone her bronchoscopy and continue her antibiotics outpatient in order to make this appointment. She has no other acute complaints but is very concerned with her chronic foot wound and wishes to continue her treatment in [place]. Family History: Unchanged from Admission Social History: Unchanged from Admission Past Medical History: Unchanged from Admission Objective Active Medications: Acetaminophen (Tylenol Tab*) 650 mg PO Q6H PRN PRN Reason: FEVER/PAIN Last Admin: 08/27/16 11:14 Dose: 650 mg Albuterol (Ventolin 2.5 Mg/3 Ml Neb.Nancy*) 2.5 mg INH Q2H PRN PRN Reason: SOB/WHEEZING Amlodipine Besylate (Norvasc Tab*) 5 mg PO 0900,2100 [facility] Last Admin: 08/27/16 07:38 Dose: 5 mg Ascorbic Acid (Vitamin C Tab*) 500 mg PO DAILY [facility] Last Admin: 08/27/16 07:37 Dose: 500 mg Carvedilol (Coreg Tab*) 25 mg PO 0900,2100 [facility] Last Admin: 08/27/16 07:38 Dose: 25 mg Clonidine HCl (Catapres Tab*) 0.1 mg PO TID [facility] Last Admin: 08/27/16 07:38 Dose: 0.1 mg Docusate Sodium (Colace Cap*) 200 mg PO BID [facility] Last Admin: 08/27/16 07:42 Dose: Not Given Meropenem (Merrem 1 Gm Premix(*)) 1 gm in 50 mls @ 100 mls/hr IV Q8H [facility] Last Admin: 08/27/16 10:07 Dose: 100 mls/hr Lactobacillus Rhamnosus (Culturelle*) 1 cap PO BID [facility] Last Admin: 08/27/16 07:37 Dose: 1 cap Magnesium Sulfate (Epsom Salt*) 1 applic TOPICAL DAILY PRN PRN Reason: Foot pain Last Admin: 08/23/16 18:30 Dose: 1 applic Melatonin (Melatonin (Nf)) 3 mg PO BEDTIME PRN; Protocol PRN Reason: Sleep Miconazole Nitrate (Miconazole Vaginal Cream 2%*) 1 applic VAGINAL BEDTIME [facility] Last Admin: 08/26/16 20:50 Dose: 1 applic Omeprazole (Prilosec Cap*) 20 mg PO DAILY@0600 CHAITANYA Last Admin: 08/27/16 05:42 Dose: Not Given Ondansetron HCl (Zofran Inj*) 4 mg IV Q6H PRN PRN Reason: NAUSEA Last Admin: 08/27/16 11:20 Dose: 4 mg Oxycodone HCl (Roxycodone Tab*) 10 mg PO Q5H PRN PRN Reason: PAIN Last Admin: 08/27/16 12:13 Dose: 10 mg Prochlorperazine Edisylate (Compazine Inj*) 5 mg IV Q6H PRN PRN Reason: NAUSEA/VOMITING Last Admin: 08/19/16 10:02 Dose: 1 ml Sodium Chloride (Sodium Chloride(Inhalant)0.9%*) 5 ml INH Q4H PRN PRN Reason: dryness/cough Last Admin: 08/27/16 08:03 Dose: 5 ml Triamcinolone Acetonide (Triamcinolone 0.025% Oint *) 1 applic TOPICAL BID PRN PRN Reason: PRURITIS Last Admin: 08/27/16 07:36 Dose: 1 applic Vital Signs 08/26/16 08/26/16 08/26/16 17:42 20:41 21:33 Temperature 98.9 F Pulse Rate 80 80 Respiratory 14 16 17 Rate Blood Pressure 175/84 140/77 (mmHg) O2 Sat by Pulse 99 96 Oximetry 08/26/16 08/27/16 08/27/16 23:18 01:03 02:26 Temperature 98.7 F Pulse Rate 79 Respiratory 15 18 18 Rate Blood Pressure 146/82 (mmHg) O2 Sat by Pulse 97 Oximetry 08/27/16 08/27/16 08/27/16 03:03 05:50 07:25 Temperature 98.3 F Pulse Rate 72 Respiratory 18 18 15 Rate Blood Pressure 136/77 (mmHg) O2 Sat by Pulse 98 Oximetry 08/27/16 08/27/16 08/27/16 07:50 08:00 08:03 Temperature Pulse Rate 71 Respiratory 16 16 20 Rate Blood Pressure (mmHg) O2 Sat by Pulse 96 Oximetry 08/27/16 12:13 Temperature Pulse Rate Respiratory 16 Rate Blood Pressure (mmHg) O2 Sat by Pulse Oximetry Oxygen Devices in Use Now: None Appearance: Middle aged female, lying in bed, NAD Eyes: No Scleral Icterus Ears/Nose/Mouth/Throat: Mucous Membranes Moist Neck: NL Appearance and Movements; NL JVP Respiratory: Symmetrical Chest Expansion and Respiratory Effort, Clear to Auscultation Cardiovascular: NL Sounds; No Murmurs; No JVD, RRR Abdominal: NL Sounds; No Tenderness; No Distention Extremities: - - mild BLE edema Neurological: Alert and Oriented x 3, NL Muscle Strength and Tone Lines/Tubes/Other Access: Clean, Dry and Intact Peripheral IV Nutrition: Taking PO's Result Diagrams: 08/27/16 05:40 08/27/16 05:37 Additional Lab and Data: Microbiology and Other Data: Microbiology 08/18/16 20:30 Legionella Urinary Antigen - Final Urine Negative Legionella Streptococcus pneumoniae Ag Screen - Final Negative S. pneumo Antigen 08/18/16 21:35 Gram Stain - Final Sputum 08/18/16 21:40 Influenza Types A,B Antigen (RUPERT) - Final Nasal Specimen received for Influenza A/B Molecular testing Assess/Plan/Problems-Billing Assessment: Mrs. Galicia is a 51yo F with PMH of HTN, CVA, CKD stage 3, vasculitis/ cryoglobulinemia, Sjogren's, pulmonary HTN, cardiomyopathy who presented with c/ o hemoptysis, found to have Pseudomonas PNA. - Patient Problems (1) Pseudomonas pneumonia Comment: - CT reviewed - shows left basilar pneumonia. - Sputum culture growing Pseudomonas. - ID consult appreciated - continue meropenem (Cipro associated with rash) - Pulm consult appreciated. - V/Q scan was negative for PE. - Aspirin on hold in the setting of hemoptysis. - Lung biopsy was negative for lymphoma, showed non specific inflammation. - Plan for possible bronch this week if hemoptysis persists. (2) Chronic wound of extremity Code(s): EOP3481 - Comment: - ID input appreciated - last week's culture done at [facility] grew Pseudomonas and enterococcus - Cipro stopped with concern for rash, continue meropenem. - Wound care appreciated - continue every other day dressings with Acticoat flex /ABD/roll gauze. - Plan for HPB therapy at [facility] when discharged. (3) Hypertension Code(s): I10 - ESSENTIAL (PRIMARY) HYPERTENSION Comment: - Controlled. - Continue Clonidine, Amlodipine, and Coreg. (4) CKD (chronic kidney disease), stage III Code(s): N18.3 - CHRONIC KIDNEY DISEASE, STAGE 3 (MODERATE) Comment: - Creatinine back to baseline. (5) Edema Code(s): R60.9 - EDEMA, UNSPECIFIED Comment: Continue metolazone and IV furosemide. Monitor renal function. (6) DVT prophylaxis Code(s): XQC9217 - Comment: - Pharmacological prophylaxis contraindicated due to hemoptysis. - SCDs. (7) Full code status Code(s): Z78.9 - OTHER SPECIFIED HEALTH STATUS Status and Disposition: Inpatient for IV antibiotics. Discuss with ID for possibility of outpatient IV abx.
--- NOTE | 2016-08-27 17:59 | PN ---
Progress Note - Progress Note Note: Pulm consult f/u note 08/27/16. Pt seen and examined at bedside, Pt reports no blood clots, no active bleeding Active Medications Generic Name Dose Route Start Last Admin Trade Name Freq PRN Reason Stop Dose Admin Acetaminophen 650 mg 08/18/16 20:10 08/27/16 11:14 Tylenol Tab* PO 650 mg Q6H PRN Administration FEVER/PAIN Albuterol 2.5 mg 08/18/16 20:10 Ventolin 2.5 Mg/3 Ml Neb.Nancy* INH Q2H PRN SOB/WHEEZING Amlodipine Besylate 5 mg 08/19/16 01:00 08/27/16 07:38 Norvasc Tab* PO 5 mg 0900,2100 CHAITANYA Administration Ascorbic Acid 500 mg 08/24/16 20:00 08/27/16 07:37 Vitamin C Tab* PO 500 mg DAILY CHAITANYA Administration Carvedilol 25 mg 08/18/16 21:00 08/27/16 07:38 Coreg Tab* PO 25 mg 0900,2100 CHAITANYA Administration Clonidine HCl 0.1 mg 08/19/16 09:00 08/27/16 14:18 Catapres Tab* PO 0.1 mg TID CHAITANYA Administration Docusate Sodium 200 mg 08/18/16 21:00 08/27/16 07:42 Colace Cap* PO Not Given BID CHAITANYA Meropenem 1 gm in 50 mls @ 100 mls/hr 08/22/16 10:00 08/27/16 10:07 Merrem 1 Gm Premix(*) IV 100 mls/hr Q8H CHAITANYA Administration Lactobacillus Rhamnosus 1 cap 08/22/16 13:00 08/27/16 07:37 Culturelle* PO 1 cap BID CHAITANYA Administration Magnesium Sulfate 1 applic 08/23/16 10:24 08/23/16 18:30 Epsom Salt* TOPICAL 1 applic DAILY PRN Administration Foot pain Melatonin 3 mg 08/18/16 20:10 Melatonin (Nf) PO BEDTIME PRN Sleep Protocol Miconazole Nitrate 1 applic 08/21/16 21:00 08/26/16 20:50 Miconazole Vaginal Cream 2%* VAGINAL 1 applic BEDTIME CHAITANYA Administration Omeprazole 20 mg 08/19/16 06:00 08/27/16 05:42 Prilosec Cap* PO Not Given DAILY@0600 CHAITANYA Ondansetron HCl 4 mg 08/18/16 20:10 08/27/16 11:20 Zofran Inj* IV 4 mg Q6H PRN Administration NAUSEA Oxycodone HCl 10 mg 08/19/16 08:37 08/27/16 12:13 Roxycodone Tab* PO 10 mg Q5H PRN Administration PAIN Prochlorperazine Edisylate 5 mg 08/19/16 08:39 08/19/16 10:02 Compazine Inj* IV 1 ml Q6H PRN Administration NAUSEA/VOMITING Sodium Chloride 5 ml 08/20/16 10:15 08/27/16 08:03 Sodium Chloride(Inhalant)0.9%* INH 5 ml Q4H PRN Administration dryness/cough Triamcinolone Acetonide 1 applic 08/24/16 00:17 08/27/16 07:36 Triamcinolone 0.025% Oint * TOPICAL 1 applic BID PRN Administration PRURITIS Vital Signs Temp Pulse Resp BP Pulse Ox 98.3 F 73 16 131/78 97 08/27/16 16:39 08/27/16 16:39 08/27/16 14:25 08/27/16 16:39 08/27/16 16:39 Gen: Pt in bed in NAD. HEENT: No Scleral Icterus, Mucous Membranes Moist Neck: Trachea Midline Respiratory: Symmetrical Chest Expansion and Respiratory Effort, Clear to Auscultation Cardiovascular: RRR, Normal S1 and S2 Extremities: Mild LE edema Laboratory Results - last 24 hr 08/25/16 08/27/16 08/27/16 07:13 05:37 05:40 WBC 3.7 RBC 3.02 L Hgb 9.1 L Hct 27 L MCV 89 MCH 30 MCHC 34 RDW 15 Plt Count 199 MPV 7 L Neut % (Auto) 69.6 Lymph % (Auto) 12.8 L [place] % (Auto) 13.0 H Eos % (Auto) 4.0 Baso % (Auto) 0.6 Absolute Neuts (auto) 2.6 Absolute Lymphs (auto) 0.5 L Absolute Monos (auto) 0.5 Absolute Eos (auto) 0.1 Absolute Basos (auto) 0 Absolute Nucleated RBC 0 Nucleated RBC % 0 Sodium 135 Potassium 4.0 Chloride 104 Carbon Dioxide 27 Anion Gap 4 BUN 31 H Creatinine 1.33 H Est GFR ( Amer) 53.7 Est GFR (Non-Af Amer) 41.7 BUN/Creatinine Ratio 23.3 H Glucose 106 H Calcium 8.6 Erythropoietin 9.7 I/R: Pt is a 51yo F with PMH of HTN, CVA, CKD stage 3, vasculitis/cryoglobulinemia, Sjogren's, pulmonary HTN, cardiomyopathy who presented with c/o hemoptysis, found to have Pseudomonas PNA. CT reviewed - shows left basilar pneumonia. No endobronchial lesions - Sputum culture growing Pseudomonas, stopped Ciprofloxacin due to rash and started on Meropenem. - No active bleeding - V/Q scan reviewed- No PE. - Aspirin on hold in the setting of hemoptysis. - Lung biopsy was negative for lymphoma in 2015, showed non specific inflammation. - Pt would want to wait on bronch Will rpt CT chest once abx course completed Discussed with pt D/w pt and Anastasiia Johnson SOFTWARE CONFIGURATION SPECIALIST
[2016-08-27] MEDS: Miconazole VAGINAL CREAM 2%* 45 GM VAGINAL SCH (20:24)
[2016-08-28] MEDS: Meropenem 1 GM PREMIX(*) 1 GM/50 ML BAG IV SCH ×3 (02:13→20:22)
[2016-08-28] MEDS: Omeprazole CAP* 20 MG PO SCH (04:56)
[2016-08-28] MEDS: oxyCODONE TAB* 5 MG TAB PO PRN ×3 (07:09→17:32)
[2016-08-28] MEDS ORDERED: Furosemide IV* 10 MG/ML VIAL (40 MG) IV SLOW PU ONE (07:19)
[2016-08-28] MEDS ORDERED: Metolazone TAB* 5 MG PO ONE (07:19)
[2016-08-28] MEDS: Docusate CAP* 100 MG PO SCH ×2 (08:12→20:23)
[2016-08-28] MEDS: Ascorbic Acid TAB* 500 MG PO SCH (08:52)
[2016-08-28] MEDS: amLODIPine TAB* 5 MG PO SCH ×2 (08:52→20:23)
[2016-08-28] MEDS: Carvedilol TAB* 25 MG PO SCH ×2 (08:53→20:22)
[2016-08-28] MEDS: cloNIDine TAB* 0.1 MG PO SCH ×3 (08:53→20:23)
[2016-08-28] MEDS: Lactobacillus Acidophilu (GG)* 1 CAP CAP PO SCH ×2 (08:53→20:23)
--- NOTE | 2016-08-28 09:37 | PN ---
Subjective Date of Service: 08/28/16 Interval History: Patient seen and examined at bedside. Patient requesting blood transfusion to help with wound healing. This was discussed with patient, and patient verbalized understanding that this would not be appropriate at this time. She said she will pursue this with her outpatient emr implementation specialist in [place]. She reports occasional cough but denies any hemoptysis at this time. Denies CP, SOB. No other acute complaints. Family History: Unchanged from Admission Social History: Unchanged from Admission Past Medical History: Unchanged from Admission Objective Active Medications: Acetaminophen (Tylenol Tab*) 650 mg PO Q6H PRN PRN Reason: FEVER/PAIN Last Admin: 08/27/16 11:14 Dose: 650 mg Albuterol (Ventolin 2.5 Mg/3 Ml Neb.Nancy*) 2.5 mg INH Q2H PRN PRN Reason: SOB/WHEEZING Amlodipine Besylate (Norvasc Tab*) 5 mg PO 0900,2100 [facility] Last Admin: 08/28/16 08:52 Dose: 5 mg Ascorbic Acid (Vitamin C Tab*) 500 mg PO DAILY [facility] Last Admin: 08/28/16 08:52 Dose: 500 mg Carvedilol (Coreg Tab*) 25 mg PO 0900,2100 [facility] Last Admin: 08/28/16 08:53 Dose: 25 mg Clonidine HCl (Catapres Tab*) 0.1 mg PO TID [facility] Last Admin: 08/28/16 08:53 Dose: 0.1 mg Docusate Sodium (Colace Cap*) 200 mg PO BID [facility] Last Admin: 08/28/16 08:12 Dose: Not Given Meropenem (Merrem 1 Gm Premix(*)) 1 gm in 50 mls @ 100 mls/hr IV Q8H [facility] Last Admin: 08/28/16 02:13 Dose: 100 mls/hr Lactobacillus Rhamnosus (Culturelle*) 1 cap PO BID [facility] Last Admin: 08/28/16 08:53 Dose: 1 cap Magnesium Sulfate (Epsom Salt*) 1 applic TOPICAL DAILY PRN PRN Reason: Foot pain Last Admin: 08/23/16 18:30 Dose: 1 applic Melatonin (Melatonin (Nf)) 3 mg PO BEDTIME PRN; Protocol PRN Reason: Sleep Miconazole Nitrate (Miconazole Vaginal Cream 2%*) 1 applic VAGINAL BEDTIME [facility] Last Admin: 08/27/16 20:24 Dose: 1 applic Omeprazole (Prilosec Cap*) 20 mg PO DAILY@0600 CHAITANYA Last Admin: 08/28/16 04:56 Dose: Not Given Ondansetron HCl (Zofran Inj*) 4 mg IV Q6H PRN PRN Reason: NAUSEA Last Admin: 08/27/16 11:20 Dose: 4 mg Oxycodone HCl (Roxycodone Tab*) 10 mg PO Q5H PRN PRN Reason: PAIN Last Admin: 08/28/16 07:09 Dose: 10 mg Prochlorperazine Edisylate (Compazine Inj*) 5 mg IV Q6H PRN PRN Reason: NAUSEA/VOMITING Last Admin: 08/19/16 10:02 Dose: 1 ml Sodium Chloride (Sodium Chloride(Inhalant)0.9%*) 5 ml INH Q4H PRN PRN Reason: dryness/cough Last Admin: 08/27/16 08:03 Dose: 5 ml Triamcinolone Acetonide (Triamcinolone 0.025% Oint *) 1 applic TOPICAL BID PRN PRN Reason: PRURITIS Last Admin: 08/27/16 07:36 Dose: 1 applic Vital Signs 08/27/16 08/27/16 08/27/16 12:13 14:13 14:25 Temperature Pulse Rate 81 Respiratory 16 16 16 Rate Blood Pressure 137/58 (mmHg) O2 Sat by Pulse 100 Oximetry 08/27/16 08/27/16 08/27/16 16:39 17:55 19:55 Temperature 98.3 F Pulse Rate 73 Respiratory 18 16 Rate Blood Pressure 131/78 (mmHg) O2 Sat by Pulse 97 Oximetry 08/27/16 08/27/16 08/27/16 20:00 23:26 23:27 Temperature 98.7 F Pulse Rate 82 Respiratory 17 16 17 Rate Blood Pressure 128/74 (mmHg) O2 Sat by Pulse 97 Oximetry 08/28/16 08/28/16 08/28/16 01:27 02:22 07:09 Temperature 98.9 F Pulse Rate 78 Respiratory 16 16 17 Rate Blood Pressure 138/75 (mmHg) O2 Sat by Pulse 96 Oximetry 08/28/16 08/28/16 08:00 08:03 Temperature 98.4 F Pulse Rate 82 Respiratory 16 16 Rate Blood Pressure 136/64 (mmHg) O2 Sat by Pulse 97 Oximetry Oxygen Devices in Use Now: None Appearance: Middle aged female, lying in bed, NAD Eyes: PERRLA Ears/Nose/Mouth/Throat: Mucous Membranes Moist Neck: NL Appearance and Movements; NL JVP Respiratory: Symmetrical Chest Expansion and Respiratory Effort, Clear to Auscultation Cardiovascular: NL Sounds; No Murmurs; No JVD, RRR Abdominal: NL Sounds; No Tenderness; No Distention Extremities: - - mild BLE edema Skin: - - 3 ulcers with eschar to R dorsal foot Neurological: Alert and Oriented x 3, NL Muscle Strength and Tone Lines/Tubes/Other Access: Clean, Dry and Intact Peripheral IV Nutrition: Taking PO's Result Diagrams: 08/27/16 05:40 08/27/16 05:37 Additional Lab and Data: Microbiology and Other Data: Microbiology 08/18/16 20:30 Legionella Urinary Antigen - Final Urine Negative Legionella Streptococcus pneumoniae Ag Screen - Final Negative S. pneumo Antigen 08/18/16 21:35 Gram Stain - Final Sputum 08/18/16 21:40 Influenza Types A,B Antigen (RUPERT) - Final Nasal Specimen received for Influenza A/B Molecular testing Assess/Plan/Problems-Billing Assessment: Mrs. Galicia is a 51yo F with PMH of HTN, CVA, CKD stage 3, vasculitis/ cryoglobulinemia, Sjogren's, pulmonary HTN, cardiomyopathy who presented with c/ o hemoptysis, found to have Pseudomonas PNA. - Patient Problems (1) Pseudomonas pneumonia Comment: - CT reviewed - shows left basilar pneumonia. - Sputum culture growing Pseudomonas. - ID consult appreciated - continue meropenem (Cipro associated with rash) - Pulm consult appreciated. - V/Q scan was negative for PE. - Aspirin on hold in the setting of hemoptysis. - Lung biopsy was negative for lymphoma, showed non specific inflammation. - Plan for bronch as outpatient, per patient request. Follow-up CT as outpatient per pulm. (2) Chronic wound of extremity Code(s): [id number] - Comment: - ID input appreciated - last week's culture done at [facility] grew Pseudomonas and enterococcus - Cipro stopped with concern for rash, continue meropenem. - Wound care appreciated - continue every other day dressings with Acticoat flex /ABD/roll gauze. - Plan for HPB therapy at [facility] when discharged. (3) Hypertension Code(s): I10 - ESSENTIAL (PRIMARY) HYPERTENSION Comment: - Controlled. - Continue Clonidine, Amlodipine, and Coreg. (4) CKD (chronic kidney disease), stage III Code(s): N18.3 - CHRONIC KIDNEY DISEASE, STAGE 3 (MODERATE) Comment: - Creatinine back to baseline. (5) Edema Code(s): R60.9 - EDEMA, UNSPECIFIED Comment: Continue metolazone and IV furosemide. Monitor renal function. (6) DVT prophylaxis Code(s): [id number] - Comment: - Pharmacological prophylaxis contraindicated due to hemoptysis. - SCDs. (7) Full code status Code(s): Z78.9 - OTHER SPECIFIED HEALTH STATUS Status and Disposition: Inpatient for IV antibiotics. Discharge planning in progress to continue IV abx as outpatient.
--- NOTE | 2016-08-28 10:14 | PN ---
Progress Note - Progress Note SOAP: Subjective: DOS: 08/28/16 CC: hemoptysis HPI: 51 yo woman with recent onset hemoptysis, preceded by productive cough and malaise, started on antibiotics here. No blood coming up with occasional cough , chest pain or dyspnea. No fever, rash, or diarrhea. Objective: [] Vital Signs Temp 36.9 C 08/28/16 08:03 Pulse 82 08/28/16 08:03 Resp 18 08/28/16 09:09 BP 136/64 08/28/16 08:03 Pulse Ox 97 08/28/16 08:03 Intake & Output 08/27/16 08/28/16 08/28/16 18:59 06:59 18:59 Intake Total 345 440 Output Total 660 Balance 345 -220 Weight 114 lb 3.2 oz Intake: Oral 345 440 Output: Urine 660 Other: Estimated Void Medium # Bowel Movements 0 # Voids 1 Gen:Awake, no distress HEENT:PERRL, MMM Neck:Supple Heart:RRR no murmur Lungs:no wheeze or rales Abd:+BS NTND soft Skin: no rash MSK: R foot dorsal 3 2 cm ulcers with eschar, no erythema Laboratory Results - last 24 hr 08/25/16 07:13 Erythropoietin 9.7 Assessment: 1. hemoptysis, resolved, due to Pseudomonas pneumonia 2. Rash, looks like small vessel vasculitis ?medication related or to cryoglobulinemia, resolved 2. Cryoglobulinemia 3. Right foot skin graft with chronic non pressure related wounds 4. Sjogren's Plan: 1.Abx day 02/08, meropenem 1 gm IV Q12hrs (presumed reaction to cipro while here so no oral options) weekly cbc,cmp, crp; follow up chest CT planned by Dr martinez 35 minutes floor time >50% face to face in counseling regarding IV antibiotic plans, blood and imaging monitoring of infection. All questions answered.
[2016-08-28] MEDS: guaiFENesin ER TAB 600 MG PO SCH ×2 (12:28→20:22)
[2016-08-28] MEDS: guaiFENesin LIQ* 100 MG/5 ML UDC PO PRN ×2 (12:46→20:36)
[2016-08-28] MEDS: Acetaminophen TAB* 325 MG PO PRN (14:14)
--- NOTE | 2016-08-28 14:43 | RAD ---
INDICATION: [id number] COMPARISON: August 18, 2016 TECHNIQUE: PA and lateral dual-energy views were obtained. FINDINGS: Bones/Soft Tissues: There are no acute bony findings. Cardiomediastinal: The cardiomediastinal silhouette is normal. Lungs: There is bibasilar airspace disease consistent with infiltrate or atelectasis with mild worsening in the left lung base. The right lung base unchanged. There is hyperinflation. Pleura: There are no pleural effusions. Other: None IMPRESSION: HYPERINFLATION WITH BIBASILAR AIRSPACE DISEASE WITH MILD WORSENING ON THE LEFT
[2016-08-28] MEDS: Miconazole VAGINAL CREAM 2%* 45 GM VAGINAL SCH (20:23)
[2016-08-28] MEDS: Triamcinolone 0.025% OINT * 15 GM TUBE TOPICAL PRN (20:52)
[2016-08-29] MEDS: guaiFENesin LIQ* 100 MG/5 ML UDC PO PRN ×3 (02:19→20:27)
[2016-08-29] MEDS: Omeprazole CAP* 20 MG PO SCH (05:11)
[2016-08-29] MEDS: oxyCODONE TAB* 5 MG TAB PO PRN ×5 (06:20→23:24)
[2016-08-29] MEDS ORDERED: Furosemide IV* 10 MG/ML VIAL (40 MG) IV SLOW PU SCH (09:00)
[2016-08-29] MEDS: Docusate CAP* 100 MG PO SCH ×2 (09:07→20:28)
[2016-08-29] MEDS: amLODIPine TAB* 5 MG PO SCH ×2 (09:08→20:27)
[2016-08-29] MEDS: Carvedilol TAB* 25 MG PO SCH ×2 (09:09→20:27)
[2016-08-29] MEDS: Ascorbic Acid TAB* 500 MG PO SCH (09:09)
[2016-08-29] MEDS: Metolazone TAB* 5 MG PO SCH (09:09)
[2016-08-29] MEDS: cloNIDine TAB* 0.1 MG PO SCH ×3 (09:09→20:27)
[2016-08-29] MEDS: Lactobacillus Acidophilu (GG)* 1 CAP CAP PO SCH ×2 (09:09→20:27)
[2016-08-29] MEDS: Meropenem 1 GM PREMIX(*) 1 GM/50 ML BAG IV SCH ×2 (09:10→20:36)
[2016-08-29] MEDS: guaiFENesin ER TAB 600 MG PO SCH ×2 (09:16→20:27)
--- NOTE | 2016-08-29 11:14 | PN ---
Subjective Date of Service: 08/29/16 Interval History: Patient seen and examined at bedside. Denies CP, SOB, hemoptysis. Feels as if she has mucus stuck in lungs and throat that is difficult to get up. Also reports abdominal fullness and pitting edema in thighs and lower legs. Wants to increase her Lasix to BID like she uses at home. Family History: Unchanged from Admission Social History: Unchanged from Admission Past Medical History: Unchanged from Admission Objective Active Medications: Acetaminophen (Tylenol Tab*) 650 mg PO Q6H PRN PRN Reason: FEVER/PAIN Last Admin: 08/28/16 14:14 Dose: 650 mg Albuterol (Ventolin 2.5 Mg/3 Ml Neb.Nancy*) 2.5 mg INH Q2H PRN PRN Reason: SOB/WHEEZING Amlodipine Besylate (Norvasc Tab*) 5 mg PO 899,2099 [facility] Last Admin: 08/29/16 09:08 Dose: 5 mg Ascorbic Acid (Vitamin C Tab*) 500 mg PO DAILY [facility] Last Admin: 08/29/16 09:09 Dose: 500 mg Carvedilol (Coreg Tab*) 25 mg PO 899,2099 [facility] Last Admin: 08/29/16 09:09 Dose: 25 mg Clonidine HCl (Catapres Tab*) 0.1 mg PO TID [facility] Last Admin: 08/29/16 09:09 Dose: 0.1 mg Docusate Sodium (Colace Cap*) 200 mg PO BID [facility] Last Admin: 08/29/16 09:07 Dose: Not Given Furosemide (Lasix Iv*) 40 mg IV SLOW PU DAILY [facility] Last Admin: 08/29/16 09:49 Dose: 40 mg Guaifenesin (Mucinex*) 1,200 mg PO BID [facility] Last Admin: 08/29/16 09:16 Dose: Not Given Guaifenesin (Robitussin*) 5 ml PO Q6H PRN PRN Reason: COUGH Last Admin: 08/29/16 09:24 Dose: 5 ml Meropenem (Merrem 1 Gm Premix(*)) 1 gm in 50 mls @ 100 mls/hr IV Q12HR [facility] Last Admin: 08/29/16 09:10 Dose: 100 mls/hr Lactobacillus Rhamnosus (Culturelle*) 1 cap PO BID [facility] Last Admin: 08/29/16 09:09 Dose: 1 cap Magnesium Sulfate (Epsom Salt*) 1 applic TOPICAL DAILY PRN PRN Reason: Foot pain Last Admin: 08/23/16 18:30 Dose: 1 applic Melatonin (Melatonin (Nf)) 3 mg PO BEDTIME PRN; Protocol PRN Reason: Sleep Metolazone (Zaroxolyn Tab*) 5 mg PO DAILY [facility] Last Admin: 08/29/16 09:09 Dose: 5 mg Miconazole Nitrate (Miconazole Vaginal Cream 2%*) 1 applic VAGINAL BEDTIME [facility] Last Admin: 08/28/16 20:23 Dose: 1 applic Omeprazole (Prilosec Cap*) 20 mg PO DAILY@0600 [facility] Last Admin: 08/29/16 05:11 Dose: Not Given Ondansetron HCl (Zofran Inj*) 4 mg IV Q6H PRN PRN Reason: NAUSEA Last Admin: 08/27/16 11:20 Dose: 4 mg Oxycodone HCl (Roxycodone Tab*) 10 mg PO Q5H PRN PRN Reason: PAIN Last Admin: 08/29/16 06:20 Dose: 10 mg Prochlorperazine Edisylate (Compazine Inj*) 5 mg IV Q6H PRN PRN Reason: NAUSEA/VOMITING Last Admin: 08/19/16 10:02 Dose: 1 ml Sodium Chloride (Sodium Chloride(Inhalant)0.9%*) 5 ml INH Q4H PRN PRN Reason: dryness/cough Last Admin: 08/27/16 08:03 Dose: 5 ml Triamcinolone Acetonide (Triamcinolone 0.025% Oint *) 1 applic TOPICAL BID PRN PRN Reason: PRURITIS Last Admin: 08/28/16 20:52 Dose: 1 applic Vital Signs 08/28/16 08/28/16 08/28/16 12:23 14:23 16:46 Temperature 98.9 F Pulse Rate 84 Respiratory 17 18 16 Rate Blood Pressure 121/72 (mmHg) O2 Sat by Pulse 100 Oximetry 08/28/16 08/28/16 08/28/16 17:32 19:32 20:00 Temperature Pulse Rate Respiratory 16 16 16 Rate Blood Pressure (mmHg) O2 Sat by Pulse Oximetry 08/29/16 08/29/16 08/29/16 00:00 02:00 06:20 Temperature Pulse Rate Respiratory 17 15 16 Rate Blood Pressure (mmHg) O2 Sat by Pulse Oximetry 08/29/16 08/29/16 07:48 08:20 Temperature 98.2 F Pulse Rate 79 Respiratory 15 Rate Blood Pressure 106/80 (mmHg) O2 Sat by Pulse 95 Oximetry Oxygen Devices in Use Now: None Appearance: Middle aged female, sitting up in bed, NAD Eyes: PERRLA Ears/Nose/Mouth/Throat: Mucous Membranes Moist Neck: NL Appearance and Movements; NL JVP Respiratory: Symmetrical Chest Expansion and Respiratory Effort, Clear to Auscultation Cardiovascular: NL Sounds; No Murmurs; No JVD, RRR Abdominal: NL Sounds; No Tenderness; No Distention Extremities: - - mild LE edema, pitting edema 1+ to thighs Skin: - - petechiae to right upper thigh at skin donor site Neurological: Alert and Oriented x 3, NL Muscle Strength and Tone Lines/Tubes/Other Access: Clean, Dry and Intact Peripheral IV Nutrition: Taking PO's Result Diagrams: 08/27/16 05:40 08/27/16 05:37 Additional Lab and Data: Microbiology and Other Data: Microbiology 08/18/16 20:30 Legionella Urinary Antigen - Final Urine Negative Legionella Streptococcus pneumoniae Ag Screen - Final Negative S. pneumo Antigen 08/18/16 21:35 Gram Stain - Final Sputum 08/18/16 21:40 Influenza Types A,B Antigen (RUPERT) - Final Nasal Specimen received for Influenza A/B Molecular testing Assess/Plan/Problems-Billing Assessment: Mrs. Galicia is a 51yo F with PMH of HTN, CVA, CKD stage 3, vasculitis/ cryoglobulinemia, Sjogren's, pulmonary HTN, cardiomyopathy who presented with c/ o hemoptysis, found to have Pseudomonas PNA. - Patient Problems (1) Pseudomonas pneumonia Comment: CT reviewed - shows left basilar pneumonia. Follow-up CXR shows bibasilar airspace disease, slightly worsened on left. Sputum culture grew Pseudomonas. ID consult appreciated - continue meropenem (Cipro associated with rash), with last dose Tuesday 08/29, per ID. Pulm consult appreciated. V/Q scan was negative for PE. Aspirin on hold in the setting of hemoptysis. Lung biopsy was negative for lymphoma, showed non specific inflammation. Plan for bronch as outpatient, per patient request. Follow-up CT as outpatient per pulm. (2) Chronic wound of extremity Code(s): [id number] - Comment: ID input appreciated - last week's culture done at [facility] grew Pseudomonas and enterococcus - Cipro stopped with concern for rash, continue meropenem. Wound care appreciated - continue q3 days dressing changes with Acticoat flex/ ABD/roll gauze. Plan for HPB therapy at [facility] when discharged. (3) Hypertension Code(s): I10 - ESSENTIAL (PRIMARY) HYPERTENSION Comment: Controlled. Continue Clonidine, Amlodipine, and Coreg. (4) CKD (chronic kidney disease), stage III Code(s): N18.3 - CHRONIC KIDNEY DISEASE, STAGE 3 (MODERATE) Comment: - Creatinine back to baseline. (5) Edema Code(s): R60.9 - EDEMA, UNSPECIFIED Comment: Continue metolazone and IV furosemide. Increase furosemide to BID. Monitor renal function. (6) DVT prophylaxis Code(s): [id number] - Comment: - Pharmacological prophylaxis contraindicated due to hemoptysis. - SCDs. (7) Full code status Code(s): Z78.9 - OTHER SPECIFIED HEALTH STATUS Status and Disposition: Inpatient for IV antibiotics. Patient unable to get to infusion center BID for IV abx. Anticipate discharge early next week, likely Friday or Friday.
[2016-08-29] MEDS: Furosemide IV* 10 MG/ML VIAL (40 MG) IV SLOW PU SCH (16:38)
[2016-08-29] MEDS: Triamcinolone 0.025% OINT * 15 GM TUBE TOPICAL PRN (19:35)
[2016-08-29] MEDS: Miconazole VAGINAL CREAM 2%* 45 GM VAGINAL SCH (20:29)
[2016-08-30] MEDS: oxyCODONE TAB* 5 MG TAB PO PRN ×4 (04:47→23:08)
[2016-08-30] MEDS: Omeprazole CAP* 20 MG PO SCH (05:08)
[2016-08-30 06:18] LABS: BUN/Creatinine Ratio 23.7 (8-20); Calcium 8.8 mg/dL (8.6-10.3); EGFR Non-African American 39.7 (>60); Potassium 4.5 mmol/L (3.5-5.0)
[2016-08-30] MEDS: Carvedilol TAB* 25 MG PO SCH ×2 (08:28→21:06)
[2016-08-30] MEDS: amLODIPine TAB* 5 MG PO SCH ×2 (08:28→21:06)
[2016-08-30] MEDS: Meropenem 1 GM PREMIX(*) 1 GM/50 ML BAG IV SCH ×2 (08:28→21:06)
[2016-08-30] MEDS: Furosemide IV* 10 MG/ML VIAL (40 MG) IV SLOW PU SCH ×2 (08:28→17:49)
[2016-08-30] MEDS: Lactobacillus Acidophilu (GG)* 1 CAP CAP PO SCH ×2 (08:29→21:07)
[2016-08-30] MEDS: cloNIDine TAB* 0.1 MG PO SCH ×3 (08:29→21:06)
[2016-08-30] MEDS: Ascorbic Acid TAB* 500 MG PO SCH ×2 (08:29→21:06)
[2016-08-30] MEDS: Docusate CAP* 100 MG PO SCH ×2 (08:29→21:07)
[2016-08-30] MEDS: guaiFENesin ER TAB 600 MG PO SCH ×2 (08:29→21:07)
[2016-08-30] MEDS: Metolazone TAB* 5 MG PO SCH (08:29)
[2016-08-30] MEDS: guaiFENesin LIQ* 100 MG/5 ML UDC PO PRN ×2 (08:40→21:29)
--- NOTE | 2016-08-30 10:01 | PN ---
Subjective Date of Service: 08/30/16 Interval History: Patient seen and examined at bedside. Lula reports that she is coughing up more sputum but no blood clots. Denies CP, SOB. Reports improvement in edema with BID dosing of furosemide. Family History: Unchanged from Admission Social History: Unchanged from Admission Past Medical History: Unchanged from Admission Objective Active Medications: Acetaminophen (Tylenol Tab*) 650 mg PO Q6H PRN PRN Reason: FEVER/PAIN Last Admin: 08/28/16 14:14 Dose: 650 mg Albuterol (Ventolin 2.5 Mg/3 Ml Neb.Nancy*) 2.5 mg INH Q2H PRN PRN Reason: SOB/WHEEZING Amlodipine Besylate (Norvasc Tab*) 5 mg PO 0900,2100 [facility] Last Admin: 08/30/16 08:28 Dose: 5 mg Ascorbic Acid (Vitamin C Tab*) 500 mg PO DAILY [facility] Last Admin: 08/30/16 08:29 Dose: 500 mg Carvedilol (Coreg Tab*) 25 mg PO 0900,2100 [facility] Last Admin: 08/30/16 08:28 Dose: 25 mg Clonidine HCl (Catapres Tab*) 0.1 mg PO TID [facility] Last Admin: 08/30/16 08:29 Dose: 0.1 mg Docusate Sodium (Colace Cap*) 200 mg PO BID [facility] Last Admin: 08/30/16 08:29 Dose: Not Given Furosemide (Lasix Iv*) 40 mg IV SLOW PU 0800,1700 [facility] Last Admin: 08/30/16 08:28 Dose: 40 mg Guaifenesin (Mucinex*) 1,200 mg PO BID [facility] Last Admin: 08/30/16 08:29 Dose: Not Given Guaifenesin (Robitussin*) 5 ml PO Q6H PRN PRN Reason: COUGH Last Admin: 08/30/16 08:40 Dose: 5 ml Meropenem (Merrem 1 Gm Premix(*)) 1 gm in 50 mls @ 100 mls/hr IV Q12HR [facility] Last Admin: 08/30/16 08:28 Dose: 100 mls/hr Lactobacillus Rhamnosus (Culturelle*) 1 cap PO BID [facility] Last Admin: 08/30/16 08:29 Dose: 1 cap Magnesium Sulfate (Epsom Salt*) 1 applic TOPICAL DAILY PRN PRN Reason: Foot pain Last Admin: 08/23/16 18:30 Dose: 1 applic Melatonin (Melatonin (Nf)) 3 mg PO BEDTIME PRN; Protocol PRN Reason: Sleep Metolazone (Zaroxolyn Tab*) 5 mg PO DAILY [facility] Last Admin: 08/30/16 08:29 Dose: 5 mg Miconazole Nitrate (Miconazole Vaginal Cream 2%*) 1 applic VAGINAL BEDTIME [facility] Last Admin: 08/29/16 20:29 Dose: Not Given Omeprazole (Prilosec Cap*) 20 mg PO DAILY@0600 [facility] Last Admin: 08/30/16 05:08 Dose: Not Given Ondansetron HCl (Zofran Inj*) 4 mg IV Q6H PRN PRN Reason: NAUSEA Last Admin: 08/27/16 11:20 Dose: 4 mg Oxycodone HCl (Roxycodone Tab*) 10 mg PO Q5H PRN PRN Reason: PAIN Last Admin: 08/30/16 04:47 Dose: 10 mg Prochlorperazine Edisylate (Compazine Inj*) 5 mg IV Q6H PRN PRN Reason: NAUSEA/VOMITING Last Admin: 08/19/16 10:02 Dose: 1 ml Sodium Chloride (Sodium Chloride(Inhalant)0.9%*) 5 ml INH Q4H PRN PRN Reason: dryness/cough Last Admin: 08/27/16 08:03 Dose: 5 ml Triamcinolone Acetonide (Triamcinolone 0.025% Oint *) 1 applic TOPICAL BID PRN PRN Reason: PRURITIS Last Admin: 08/29/16 19:35 Dose: 1 applic Vital Signs 08/29/16 08/29/16 08/29/16 11:43 11:58 12:13 Temperature 98.3 F Pulse Rate 77 84 Respiratory 16 20 Rate Blood Pressure 118/66 (mmHg) O2 Sat by Pulse 98 96 Oximetry 08/29/16 08/29/16 08/29/16 14:05 14:09 16:06 Temperature 97.5 F Pulse Rate 87 85 Respiratory 15 17 Rate Blood Pressure 126/75 112/68 (mmHg) O2 Sat by Pulse 98 Oximetry 08/29/16 08/29/16 08/29/16 17:36 19:36 20:00 Temperature Pulse Rate Respiratory 18 15 16 Rate Blood Pressure (mmHg) O2 Sat by Pulse Oximetry 08/29/16 08/29/16 08/30/16 23:15 23:24 01:24 Temperature 98.2 F Pulse Rate 87 Respiratory 18 17 15 Rate Blood Pressure 133/71 (mmHg) O2 Sat by Pulse 97 Oximetry 08/30/16 08/30/16 08/30/16 04:47 06:47 07:58 Temperature 98.5 F Pulse Rate 76 Respiratory 15 16 16 Rate Blood Pressure 126/67 (mmHg) O2 Sat by Pulse 96 Oximetry 08/30/16 08:00 Temperature Pulse Rate Respiratory 16 Rate Blood Pressure (mmHg) O2 Sat by Pulse Oximetry Oxygen Devices in Use Now: None Appearance: Middle aged female, lying in bed, NAD Eyes: PERRLA Ears/Nose/Mouth/Throat: Mucous Membranes Moist Neck: NL Appearance and Movements; NL JVP Respiratory: Symmetrical Chest Expansion and Respiratory Effort, Clear to Auscultation Cardiovascular: NL Sounds; No Murmurs; No JVD, RRR Abdominal: NL Sounds; No Tenderness; No Distention Extremities: - - mild pitting LE edema Neurological: Alert and Oriented x 3, NL Muscle Strength and Tone Lines/Tubes/Other Access: Clean, Dry and Intact Peripheral IV Nutrition: Taking PO's Result Diagrams: 08/27/16 05:40 08/30/16 05:31 Additional Lab and Data: Microbiology and Other Data: Microbiology 08/18/16 20:30 Legionella Urinary Antigen - Final Urine Negative Legionella Streptococcus pneumoniae Ag Screen - Final Negative S. pneumo Antigen 08/18/16 21:35 Gram Stain - Final Sputum 08/18/16 21:40 Influenza Types A,B Antigen (RUPERT) - Final Nasal Specimen received for Influenza A/B Molecular testing Assess/Plan/Problems-Billing Assessment: Mrs. Galicia is a 51yo F with PMH of HTN, CVA, CKD stage 3, vasculitis/ cryoglobulinemia, Sjogren's, pulmonary HTN, cardiomyopathy who presented with c/ o hemoptysis, found to have Pseudomonas PNA. - Patient Problems (1) Pseudomonas pneumonia Comment: CT reviewed - shows left basilar pneumonia. Follow-up CXR shows bibasilar airspace disease, slightly worsened on left. Sputum culture grew Pseudomonas. ID consult appreciated - continue meropenem (Cipro associated with rash), with last dose Tuesday 08/29, per ID. Pulm consult appreciated. V/Q scan was negative for PE. Aspirin on hold in the setting of hemoptysis. Lung biopsy was negative for lymphoma, showed non specific inflammation. Plan for bronch as outpatient, per patient request. Follow-up CT as outpatient per pulm. (2) Chronic wound of extremity Code(s): [id number] - Comment: ID input appreciated - last week's culture done at [facility] grew Pseudomonas and enterococcus - Cipro stopped with concern for rash, continue meropenem. Wound care appreciated - continue q3 days dressing changes with Acticoat flex/ ABD/roll gauze. Plan for HPB therapy at [facility] when discharged. (3) Hypertension Code(s): I10 - ESSENTIAL (PRIMARY) HYPERTENSION Comment: Controlled. Continue Clonidine, Amlodipine, and Coreg. (4) CKD (chronic kidney disease), stage III Code(s): N18.3 - CHRONIC KIDNEY DISEASE, STAGE 3 (MODERATE) Comment: - Creatinine back to baseline. (5) Edema Code(s): R60.9 - EDEMA, UNSPECIFIED Comment: Patient reports 6-8# weight gain since admission, now improving. Continue metolazone and IV furosemide BID. Monitor renal function. (6) DVT prophylaxis Code(s): [id number] - Comment: - Pharmacological prophylaxis contraindicated due to hemoptysis. - SCDs. (7) Full code status Code(s): Z78.9 - OTHER SPECIFIED HEALTH STATUS Status and Disposition: Inpatient for IV antibiotics. Patient unable to get to infusion center BID for IV abx. Anticipate discharge early next week, likely Friday or Friday.
[2016-08-30] MEDS: Triamcinolone 0.025% OINT * 15 GM TUBE TOPICAL PRN (14:29)
[2016-08-30] MEDS: Miconazole VAGINAL CREAM 2%* 45 GM VAGINAL SCH (21:08)
[2016-08-31] MEDS: Omeprazole CAP* 20 MG PO SCH ×2 (05:11→05:13)
[2016-08-31] MEDS: oxyCODONE TAB* 5 MG TAB PO PRN ×4 (05:11→21:18)
[2016-08-31] MEDS: Meropenem 1 GM PREMIX(*) 1 GM/50 ML BAG IV SCH ×2 (08:33→21:19)
[2016-08-31] MEDS: Lactobacillus Acidophilu (GG)* 1 CAP CAP PO SCH ×2 (08:34→21:24)
[2016-08-31] MEDS: Docusate CAP* 100 MG PO SCH ×2 (08:34→21:21)
[2016-08-31] MEDS: guaiFENesin ER TAB 600 MG PO SCH ×2 (08:34→21:21)
[2016-08-31] MEDS: amLODIPine TAB* 5 MG PO SCH ×2 (08:35→21:19)
[2016-08-31] MEDS: Furosemide IV* 10 MG/ML VIAL (40 MG) IV SLOW PU SCH ×2 (08:35→16:12)
[2016-08-31] MEDS: Carvedilol TAB* 25 MG PO SCH ×2 (08:35→21:19)
[2016-08-31] MEDS: Metolazone TAB* 5 MG PO SCH (08:35)
[2016-08-31] MEDS: cloNIDine TAB* 0.1 MG PO SCH ×3 (08:35→21:19)
[2016-08-31] MEDS: Ascorbic Acid TAB* 500 MG PO SCH ×2 (08:35→21:19)
[2016-08-31] MEDS: guaiFENesin LIQ* 100 MG/5 ML UDC PO PRN ×2 (08:45→21:19)
--- NOTE | 2016-08-31 09:01 | PN ---
Subjective Date of Service: 08/31/16 Interval History: Patient seen and examined at bedside. She reports improvement in her cough and denies coughing up blood. States sputum is green. Denies fever/chills, CP, SOB. Reports improvement to skin graft site and cold sore. Reports improvement in leg swelling, wants to continue BID furosemide for another day or 2. Family History: Unchanged from Admission Social History: Unchanged from Admission Past Medical History: Unchanged from Admission Objective Active Medications: Acetaminophen (Tylenol Tab*) 650 mg PO Q6H PRN PRN Reason: FEVER/PAIN Last Admin: 08/28/16 14:14 Dose: 650 mg Albuterol (Ventolin 2.5 Mg/3 Ml Neb.Nancy*) 2.5 mg INH Q2H PRN PRN Reason: SOB/WHEEZING Amlodipine Besylate (Norvasc Tab*) 5 mg PO 0900,2100 [facility] Last Admin: 08/31/16 08:35 Dose: 5 mg Ascorbic Acid (Vitamin C Tab*) 500 mg PO BID [facility] Last Admin: 08/31/16 08:35 Dose: 500 mg Carvedilol (Coreg Tab*) 25 mg PO 0900,2100 [facility] Last Admin: 08/31/16 08:35 Dose: 25 mg Clonidine HCl (Catapres Tab*) 0.1 mg PO TID [facility] Last Admin: 08/31/16 08:35 Dose: 0.1 mg Docusate Sodium (Colace Cap*) 200 mg PO BID [facility] Last Admin: 08/31/16 08:34 Dose: 200 mg Furosemide (Lasix Iv*) 40 mg IV SLOW PU 0800,1700 [facility] Last Admin: 08/31/16 08:35 Dose: 40 mg Guaifenesin (Mucinex*) 1,200 mg PO BID [facility] Last Admin: 08/31/16 08:34 Dose: 1,200 mg Guaifenesin (Robitussin*) 5 ml PO Q6H PRN PRN Reason: COUGH Last Admin: 08/31/16 08:45 Dose: 5 ml Meropenem (Merrem 1 Gm Premix(*)) 1 gm in 50 mls @ 100 mls/hr IV Q12HR [facility] Last Admin: 08/31/16 08:33 Dose: 100 mls/hr Lactobacillus Rhamnosus (Culturelle*) 1 cap PO BID [facility] Last Admin: 08/31/16 08:34 Dose: 1 cap Magnesium Sulfate (Epsom Salt*) 1 applic TOPICAL DAILY PRN PRN Reason: Foot pain Last Admin: 08/23/16 18:30 Dose: 1 applic Melatonin (Melatonin (Nf)) 3 mg PO BEDTIME PRN; Protocol PRN Reason: Sleep Metolazone (Zaroxolyn Tab*) 5 mg PO DAILY [facility] Last Admin: 08/31/16 08:35 Dose: 5 mg Miconazole Nitrate (Miconazole Vaginal Cream 2%*) 1 applic VAGINAL BEDTIME [facility] Last Admin: 08/30/16 21:08 Dose: Not Given Omeprazole (Prilosec Cap*) 20 mg PO DAILY@0600 [facility] Last Admin: 08/31/16 05:13 Dose: Not Given Ondansetron HCl (Zofran Inj*) 4 mg IV Q6H PRN PRN Reason: NAUSEA Last Admin: 08/27/16 11:20 Dose: 4 mg Oxycodone HCl (Roxycodone Tab*) 10 mg PO Q5H PRN PRN Reason: PAIN Last Admin: 08/31/16 05:11 Dose: 10 mg Prochlorperazine Edisylate (Compazine Inj*) 5 mg IV Q6H PRN PRN Reason: NAUSEA/VOMITING Last Admin: 08/19/16 10:02 Dose: 1 ml Sodium Chloride (Sodium Chloride(Inhalant)0.9%*) 5 ml INH Q4H PRN PRN Reason: dryness/cough Last Admin: 08/27/16 08:03 Dose: 5 ml Triamcinolone Acetonide (Triamcinolone 0.025% Oint *) 1 applic TOPICAL BID PRN PRN Reason: PRURITIS Last Admin: 08/30/16 14:29 Dose: 1 applic Vital Signs 08/30/16 08/30/16 08/30/16 10:11 12:15 14:15 Temperature Pulse Rate 88 Respiratory 18 18 18 Rate Blood Pressure (mmHg) O2 Sat by Pulse 95 Oximetry 08/30/16 08/30/16 08/30/16 14:52 15:18 18:03 Temperature 98.3 F Pulse Rate 87 77 Respiratory 16 18 Rate Blood Pressure 138/85 126/70 (mmHg) O2 Sat by Pulse 99 Oximetry 08/30/16 08/30/16 08/30/16 20:00 20:03 22:03 Temperature Pulse Rate 84 Respiratory 18 18 18 Rate Blood Pressure (mmHg) O2 Sat by Pulse 97 Oximetry 08/30/16 08/30/16 08/31/16 23:07 23:08 01:08 Temperature 99.2 F Pulse Rate 94 Respiratory 14 18 18 Rate Blood Pressure 118/70 (mmHg) O2 Sat by Pulse 97 Oximetry 08/31/16 05:11 Temperature Pulse Rate Respiratory 16 Rate Blood Pressure (mmHg) O2 Sat by Pulse Oximetry Oxygen Devices in Use Now: None Appearance: Middle aged female, sitting up in bed, NAD Eyes: PERRLA Ears/Nose/Mouth/Throat: Mucous Membranes Moist Neck: NL Appearance and Movements; NL JVP Respiratory: Symmetrical Chest Expansion and Respiratory Effort, Clear to Auscultation Cardiovascular: NL Sounds; No Murmurs; No JVD, RRR Abdominal: NL Sounds; No Tenderness; No Distention Extremities: - - mild LE edema Neurological: Alert and Oriented x 3, NL Muscle Strength and Tone Lines/Tubes/Other Access: Clean, Dry and Intact Peripheral IV Nutrition: Taking PO's Result Diagrams: 08/27/16 05:40 08/30/16 05:31 Additional Lab and Data: Microbiology and Other Data: Microbiology 08/18/16 20:30 Legionella Urinary Antigen - Final Urine Negative Legionella Streptococcus pneumoniae Ag Screen - Final Negative S. pneumo Antigen 08/18/16 21:35 Gram Stain - Final Sputum 08/18/16 21:40 Influenza Types A,B Antigen (RUPERT) - Final Nasal Specimen received for Influenza A/B Molecular testing Assess/Plan/Problems-Billing Assessment: Mrs. Galicia is a 51yo F with PMH of HTN, CVA, CKD stage 3, vasculitis/ cryoglobulinemia, Sjogren's, pulmonary HTN, cardiomyopathy who presented with c/ o hemoptysis, found to have Pseudomonas PNA. - Patient Problems (1) Pseudomonas pneumonia Comment: CT reviewed - shows left basilar pneumonia. Follow-up CXR shows bibasilar airspace disease, slightly worsened on left. Sputum culture grew Pseudomonas. ID consult appreciated - continue meropenem (Cipro associated with rash), with last dose Tuesday 08/29, per ID. Pulm consult appreciated. V/Q scan was negative for PE. Aspirin on hold in the setting of hemoptysis. Lung biopsy was negative for lymphoma, showed non specific inflammation. Plan for bronch as outpatient, per patient request. Follow-up CT as outpatient per pulm. (2) Chronic wound of extremity Code(s): [id number] - Comment: ID input appreciated - last week's culture done at [facility] grew Pseudomonas and enterococcus - Cipro stopped with concern for rash, continue meropenem. Wound care appreciated - continue q3 days dressing changes with Acticoat flex/ ABD/roll gauze. Plan for HPB therapy at [facility] when discharged. (3) Hypertension Code(s): I10 - ESSENTIAL (PRIMARY) HYPERTENSION Comment: Controlled. Continue Clonidine, Amlodipine, and Coreg. (4) CKD (chronic kidney disease), stage III Code(s): N18.3 - CHRONIC KIDNEY DISEASE, STAGE 3 (MODERATE) Comment: Creatinine back to baseline. (5) Edema Code(s): R60.9 - EDEMA, UNSPECIFIED Comment: Patient reports 6-8# weight gain since admission, now improving. Continue metolazone and IV furosemide BID. Monitor renal function. (6) DVT prophylaxis Code(s): [id number] - Comment: Pharmacological prophylaxis contraindicated due to hemoptysis. SCDs (7) Full code status Code(s): Z78.9 - OTHER SPECIFIED HEALTH STATUS Status and Disposition: Inpatient for IV antibiotics. Patient unable to get to infusion center BID for IV abx. Anticipate discharge early next week, likely Friday or Friday.
[2016-08-31] MEDS: Acetaminophen TAB* 325 MG PO PRN (10:43)
[2016-08-31] MEDS: Miconazole VAGINAL CREAM 2%* 45 GM VAGINAL SCH (21:21)
[2016-09-01] MEDS: oxyCODONE TAB* 5 MG TAB PO PRN ×4 (04:28→20:52)
[2016-09-01] MEDS: Omeprazole CAP* 20 MG PO SCH (05:03)
[2016-09-01 06:09] LABS: Comments Flag Yes; Hematocrit 28 % (35-47); Hemoglobin 9.5 g/dl (12.0-16.0); Mean Corpuscular HGB Conc 34 g/dl (31-36); Mean Corpuscular Hemoglobin 30 pg (27-31); Mean Corpuscular Volume 90 fL (80-97); Mean Platelet Volume 7 um3 (7.4-10.4); Red Blood Count 3.14 10^6/ul (4.0-5.4); Red Cell Distribution Width 15 % (10.5-15)
[2016-09-01 06:10] LABS: White Blood Count 3.3 10^3/ul (3.5-10.8)
[2016-09-01 06:22] LABS: BUN/Creatinine Ratio 25.8 (8-20); Calcium 8.6 mg/dL (8.6-10.3); EGFR African American 46.4 (>60); Potassium 4.7 mmol/L (3.5-5.0)
[2016-09-01] MEDS: Docusate CAP* 100 MG PO SCH ×2 (09:09→20:53)
[2016-09-01] MEDS: Lactobacillus Acidophilu (GG)* 1 CAP CAP PO SCH ×2 (09:09→20:51)
[2016-09-01] MEDS: guaiFENesin ER TAB 600 MG PO SCH (09:09)
[2016-09-01] MEDS: Meropenem 1 GM PREMIX(*) 1 GM/50 ML BAG IV SCH ×2 (09:10→21:08)
[2016-09-01] MEDS: amLODIPine TAB* 5 MG PO SCH ×2 (09:10→20:53)
[2016-09-01] MEDS: cloNIDine TAB* 0.1 MG PO SCH ×3 (09:10→20:54)
[2016-09-01] MEDS: Ascorbic Acid TAB* 500 MG PO SCH ×2 (09:10→20:54)
[2016-09-01] MEDS: Carvedilol TAB* 25 MG PO SCH ×2 (09:10→20:54)
[2016-09-01] MEDS: guaiFENesin LIQ* 100 MG/5 ML UDC PO PRN (09:16)
[2016-09-01] MEDS: Furosemide IV* 10 MG/ML VIAL (40 MG) IV SLOW PU SCH (09:24)
[2016-09-01] MEDS: Furosemide TAB* 40 MG PO SCH ×2 (11:12→17:21)
--- NOTE | 2016-09-01 13:44 | PN ---
Subjective Date of Service: 09/01/16 Interval History: This is a 51 yo female with a h/o vasculitis/cryoglobulinemia who presented with c/o hemoptysis found to have a Pseudomonas PNA, now treated with Meropenem after developing a rash with Cipro. Patient reports that she still has an occasional cough and thick sputum but the hemoptysis has resolved. No dyspnea or other complaints. Edema has been improving with IV diuresis. Objective Active Medications: Acetaminophen (Tylenol Tab*) 650 mg PO Q6H PRN PRN Reason: FEVER/PAIN Last Admin: 08/31/16 10:43 Dose: 650 mg Albuterol (Ventolin 2.5 Mg/3 Ml Neb.Nancy*) 2.5 mg INH Q2H PRN PRN Reason: SOB/WHEEZING Amlodipine Besylate (Norvasc Tab*) 5 mg PO 0900,2100 [facility] Last Admin: 09/01/16 09:10 Dose: 5 mg Ascorbic Acid (Vitamin C Tab*) 500 mg PO BID [facility] Last Admin: 09/01/16 09:10 Dose: 500 mg Carvedilol (Coreg Tab*) 25 mg PO 0900,2100 [facility] Last Admin: 09/01/16 09:10 Dose: 25 mg Clonidine HCl (Catapres Tab*) 0.1 mg PO TID [facility] Last Admin: 09/01/16 09:10 Dose: 0.1 mg Docusate Sodium (Colace Cap*) 200 mg PO BID [facility] Last Admin: 09/01/16 09:09 Dose: Not Given Furosemide (Lasix Tab*) 40 mg PO 0800,1700 [facility] Last Admin: 09/01/16 11:12 Dose: 40 mg Guaifenesin (Robitussin*) 10 ml PO Q8HR [facility] Meropenem (Merrem 1 Gm Premix(*)) 1 gm in 50 mls @ 100 mls/hr IV Q12HR [facility] Last Admin: 09/01/16 09:10 Dose: 100 mls/hr Lactobacillus Rhamnosus (Culturelle*) 1 cap PO BID [facility] Last Admin: 09/01/16 09:09 Dose: 1 cap Magnesium Sulfate (Epsom Salt*) 1 applic TOPICAL DAILY PRN PRN Reason: Foot pain Last Admin: 08/23/16 18:30 Dose: 1 applic Melatonin (Melatonin (Nf)) 3 mg PO BEDTIME PRN; Protocol PRN Reason: Sleep Miconazole Nitrate (Miconazole Vaginal Cream 2%*) 1 applic VAGINAL BEDTIME [facility] Last Admin: 08/31/16 21:21 Dose: Not Given Omeprazole (Prilosec Cap*) 20 mg PO DAILY@0600 [facility] Last Admin: 09/01/16 05:03 Dose: Not Given Ondansetron HCl (Zofran Inj*) 4 mg IV Q6H PRN PRN Reason: NAUSEA Last Admin: 08/27/16 11:20 Dose: 4 mg Oxycodone HCl (Roxycodone Tab*) 10 mg PO Q5H PRN PRN Reason: PAIN Last Admin: 09/01/16 09:08 Dose: 10 mg Prochlorperazine Edisylate (Compazine Inj*) 5 mg IV Q6H PRN PRN Reason: NAUSEA/VOMITING Last Admin: 08/19/16 10:02 Dose: 1 ml Sodium Chloride (Sodium Chloride(Inhalant)0.9%*) 5 ml INH Q4H PRN PRN Reason: dryness/cough Last Admin: 08/27/16 08:03 Dose: 5 ml Triamcinolone Acetonide (Triamcinolone 0.025% Oint *) 1 applic TOPICAL BID PRN PRN Reason: PRURITIS Last Admin: 08/30/16 14:29 Dose: 1 applic Vital Signs: Temp Pulse Resp BP Pulse Ox 98.2 F 88 16 135/81 95 09/01/16 07:39 09/01/16 07:39 09/01/16 11:08 09/01/16 09:16 09/01/16 07:39 Oxygen Devices in Use Now: None Appearance: Well appearing, but chronically ill in NAD Respiratory: Symmetrical Chest Expansion and Respiratory Effort, Clear to Auscultation Cardiovascular: NL Sounds; No Murmurs; No JVD, RRR Extremities: - - trace edema bilaterally, R foot in a dry dressing Neurological: Alert and Oriented x 3 Result Diagrams: 09/01/16 06:00 09/01/16 06:01 Additional Lab and Data: Microbiology and Other Data: Microbiology 08/18/16 20:30 Legionella Urinary Antigen - Final Urine Negative Legionella Streptococcus pneumoniae Ag Screen - Final Negative S. pneumo Antigen 08/18/16 21:35 Gram Stain - Final Sputum 08/18/16 21:40 Influenza Types A,B Antigen ([facility]) - Final Nasal Specimen received for Influenza A/B Molecular testing Assess/Plan/Problems-Billing Assessment: Mrs. Galicia is a 51yo F with PMH of HTN, CVA, CKD stage 3, vasculitis/ cryoglobulinemia, Sjogren's, pulmonary HTN, cardiomyopathy who presented with c/ o hemoptysis, found to have Pseudomonas PNA. - Patient Problems (1) Pseudomonas pneumonia Comment: CT demonstrated left basilar pneumonia. Sputum culture grew Pseudomonas. ID consult appreciated - continue meropenem (Cipro associated with rash), with last dose Tuesday 08/29, per ID. Pulm consult appreciated. V/Q scan was negative for PE. Hemoptysis has now resolved, will resume ASA Prior lung biopsy from 2014 was negative for lymphoma, showed non specific inflammation. Plan for bronch as outpatient, per patient request. Follow-up CT as outpatient per pulm. (2) CKD (chronic kidney disease), stage III Comment: Creatinine back to baseline. (3) CVA (cerebral vascular accident) Comment: h/o CVA Will resume ASA now that hemoptysis has resolved (4) Cardiomyopathy Comment: EF 40-45% Diuressed with IV Lasix/metolazone due to fluid overload from earlier in hospital stay Appears near euvolemic state (5) Chronic wound of extremity Comment: ID input appreciated - last week's culture done at [facility] [[email or web address] grew Pseudomonas and enterococcus - Cipro stopped with concern for rash, continue meropenem. Wound care appreciated - continue q3 days dressing changes with Acticoat flex/ ABD/roll gauze. Plan for HPB therapy at [facility] [[email or web address] when discharged. (6) Hypertension Comment: Controlled. Continue Clonidine, Amlodipine, and Coreg. 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 Anticipate discharge Tues am.
[2016-09-01] MEDS: guaiFENesin LIQ* 100 MG/5 ML UDC PO SCH ×2 (14:35→20:52)
[2016-09-01] MEDS: Acetaminophen TAB* 325 MG PO PRN (18:58)
[2016-09-01] MEDS: Miconazole VAGINAL CREAM 2%* 45 GM VAGINAL SCH (20:51)
[2016-09-02] MEDS: oxyCODONE TAB* 5 MG TAB PO PRN ×4 (03:33→18:40)
[2016-09-02] MEDS: Acetaminophen TAB* 325 MG PO PRN ×2 (06:37→13:48)
[2016-09-02] MEDS: guaiFENesin LIQ* 100 MG/5 ML UDC PO SCH ×3 (06:37→20:34)
[2016-09-02] MEDS: Omeprazole CAP* 20 MG PO SCH (06:57)
[2016-09-02] MEDS: amLODIPine TAB* 5 MG PO SCH ×2 (08:34→20:40)
[2016-09-02] MEDS: Ascorbic Acid TAB* 500 MG PO SCH ×2 (08:34→20:34)
[2016-09-02] MEDS: Meropenem 1 GM PREMIX(*) 1 GM/50 ML BAG IV SCH (08:34)
[2016-09-02] MEDS: Lactobacillus Acidophilu (GG)* 1 CAP CAP PO SCH ×2 (08:34→22:33)
[2016-09-02] MEDS: Furosemide TAB* 40 MG PO SCH ×2 (08:34→15:19)
[2016-09-02] MEDS: cloNIDine TAB* 0.1 MG PO SCH ×3 (08:34→20:40)
[2016-09-02] MEDS: Carvedilol TAB* 25 MG PO SCH ×2 (08:34→20:41)
[2016-09-02] MEDS: Docusate CAP* 100 MG PO SCH ×2 (08:35→21:28)
[2016-09-02] MEDS ORDERED: Aspirin EC TAB* 325 MG PO SCH (09:00)
[2016-09-02 09:56] LABS: Calcium 8.8 mg/dL (8.6-10.3); EGFR African American 50.6 (>60); EGFR Non-African American 39.3 (>60); Potassium 4.7 mmol/L (3.5-5.0)
--- NOTE | 2016-09-02 10:40 | PN ---
Subjective Date of Service: 09/02/16 Interval History: Patient developed hemoptysis again overnight. No new dyspnea or fevers. No chest pain, abd pain, n/v. Objective Active Medications: Acetaminophen (Tylenol Tab*) 650 mg PO Q6H PRN PRN Reason: FEVER/PAIN Last Admin: 09/02/16 06:37 Dose: 650 mg Albuterol (Ventolin 2.5 Mg/3 Ml Neb.Nancy*) 2.5 mg INH Q2H PRN PRN Reason: SOB/WHEEZING Amlodipine Besylate (Norvasc Tab*) 5 mg PO 0900,2100 [facility] Last Admin: 09/02/16 08:34 Dose: 5 mg Ascorbic Acid (Vitamin C Tab*) 500 mg PO BID [facility] Last Admin: 09/02/16 08:34 Dose: 500 mg Aspirin (Ecotrin Ec Tab*) 325 mg PO DAILY [facility] Last Admin: 09/02/16 08:34 Dose: Not Given Carvedilol (Coreg Tab*) 25 mg PO 0900,2100 [facility] Last Admin: 09/02/16 08:34 Dose: 25 mg Clonidine HCl (Catapres Tab*) 0.1 mg PO TID [facility] Last Admin: 09/02/16 08:34 Dose: 0.1 mg Docusate Sodium (Colace Cap*) 200 mg PO BID [facility] Last Admin: 09/02/16 08:35 Dose: Not Given Furosemide (Lasix Tab*) 40 mg PO 0800,1700 [facility] Last Admin: 09/02/16 08:34 Dose: 40 mg Guaifenesin (Robitussin*) 10 ml PO Q8HR [facility] Last Admin: 09/02/16 06:37 Dose: 10 ml Meropenem (Merrem 1 Gm Premix(*)) 1 gm in 50 mls @ 100 mls/hr IV Q12HR [facility] Last Admin: 09/02/16 08:34 Dose: 100 mls/hr Lactobacillus Rhamnosus (Culturelle*) 1 cap PO BID [facility] Last Admin: 09/02/16 08:34 Dose: 1 cap Magnesium Sulfate (Epsom Salt*) 1 applic TOPICAL DAILY PRN PRN Reason: Foot pain Last Admin: 08/23/16 18:30 Dose: 1 applic Melatonin (Melatonin (Nf)) 3 mg PO BEDTIME PRN; Protocol PRN Reason: Sleep Miconazole Nitrate (Miconazole Vaginal Cream 2%*) 1 applic VAGINAL BEDTIME [facility] Last Admin: 09/01/16 20:51 Dose: Not Given Omeprazole (Prilosec Cap*) 20 mg PO DAILY@0600 [facility] Last Admin: 09/02/16 06:57 Dose: Not Given Ondansetron HCl (Zofran Inj*) 4 mg IV Q6H PRN PRN Reason: NAUSEA Last Admin: 08/27/16 11:20 Dose: 4 mg Oxycodone HCl (Roxycodone Tab*) 10 mg PO Q5H PRN PRN Reason: PAIN Last Admin: 09/02/16 08:34 Dose: 10 mg Prochlorperazine Edisylate (Compazine Inj*) 5 mg IV Q6H PRN PRN Reason: NAUSEA/VOMITING Last Admin: 08/19/16 10:02 Dose: 1 ml Sodium Chloride (Sodium Chloride(Inhalant)0.9%*) 5 ml INH Q4H PRN PRN Reason: dryness/cough Last Admin: 08/27/16 08:03 Dose: 5 ml Triamcinolone Acetonide (Triamcinolone 0.025% Oint *) 1 applic TOPICAL BID PRN PRN Reason: PRURITIS Last Admin: 08/30/16 14:29 Dose: 1 applic Vital Signs: Temp Pulse Resp BP Pulse Ox 98.1 F 81 20 122/77 96 09/02/16 08:26 09/02/16 08:26 09/02/16 09:21 09/02/16 08:26 09/02/16 08:26 Oxygen Devices in Use Now: None Appearance: Well appearing, in NAD Respiratory: Symmetrical Chest Expansion and Respiratory Effort, Clear to Auscultation, - - several blood clots present in sputum basin Cardiovascular: RRR Extremities: - - trace LE edema Skin: - - R foot in clean bandage Neurological: Alert and Oriented x 3 Result Diagrams: 09/01/16 06:00 09/02/16 09:27 Additional Lab and Data: Microbiology and Other Data: Microbiology 08/18/16 20:30 Legionella Urinary Antigen - Final Urine Negative Legionella Streptococcus pneumoniae Ag Screen - Final Negative S. pneumo Antigen 08/18/16 21:35 Gram Stain - Final Sputum 08/18/16 21:40 Influenza Types A,B Antigen ([facility]) - Final Nasal Specimen received for Influenza A/B Molecular testing Assess/Plan/Problems-Billing Assessment: Mrs. Galicia is a 51yo F with PMH of HTN, CVA, CKD stage 3, vasculitis/ cryoglobulinemia, Sjogren's, pulmonary HTN, cardiomyopathy who presented with c/ o hemoptysis, found to have Pseudomonas PNA. - Patient Problems (1) Pseudomonas pneumonia Comment: CT demonstrated left basilar pneumonia. Sputum culture grew Pseudomonas. ID consult appreciated - continue meropenem (Cipro associated with rash), with last dose today, per ID. Pulm consult appreciated. V/Q scan was negative for PE. Prior lung biopsy from 2014 was negative for lymphoma, showed non specific inflammation. Plan for bronch as outpatient, per patient request. Follow-up CT as outpatient per pulm. She developed new hemoptysis overnight after several days without, plan to discuss ASA with Dr Hansen (2) CKD (chronic kidney disease), stage III Comment: Creatinine back to baseline. (3) CVA (cerebral vascular accident) Comment: h/o CVA ASA has been restarted (4) Cardiomyopathy Comment: EF 40-45% Diuressed with IV Lasix/metolazone due to fluid overload from earlier in hospital stay Appears near euvolemic state, home oral dose of Lasix as been restarted (5) Chronic wound of extremity Comment: ID input appreciated - culture done at [facility] prior to admission grew Pseudomonas and enterococcus - Cipro stopped with concern for rash, continue meropenem. Wound care appreciated - continue q3 days dressing changes with Acticoat flex/ ABD/roll gauze. Plan for HPB therapy at [facility] when discharged. (6) Hypertension Comment: Controlled. Continue Clonidine, Amlodipine, and Coreg. 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 Anticipate discharge tomorrow am. To be re- evaluated by ID and pulmonology prior to dc.
--- NOTE | 2016-09-02 11:14 | PN ---
Progress Note - Progress Note SOAP: Subjective: DOS: 09/02/16 CC: hemoptysis HPI: 51 yo woman with recent onset hemoptysis, preceded by productive cough and malaise. Low energy and return of cough with hemoptysis overnight. No chest pain. No fever, rash, or diarrhea. Objective: [] Vital Signs Temp 36.7 C 09/02/16 08:26 Pulse 81 09/02/16 08:26 Resp 20 09/02/16 09:21 BP 122/77 09/02/16 08:26 Pulse Ox 96 09/02/16 08:26 Intake & Output 09/01/16 09/02/16 09/02/16 18:59 06:59 18:59 Intake Total 1250 545 720 Balance 1250 545 720 Weight 112 lb 4.8 oz Intake: IV Fluids 20 20 Meropenem 20 ns 20 IVPB 50 55 Meropenem 50 55 Oral 1180 470 720 Other: # Bowel Movements 1 # Voids 1 Gen:Awake, no distress HEENT:PERRL, MMM Neck:Supple Heart:RRR no murmur Lungs:no wheeze or rales Abd:+BS NTND soft Skin: no rash MSK: R foot dorsal 3 2 cm ulcers with eschar, no erythema Laboratory Results - last 24 hr 09/02/16 09:27 Sodium 133 Potassium 4.7 Chloride 104 Carbon Dioxide 25 Anion Gap 4 BUN 35 H Creatinine 1.40 H Est GFR ( Amer) 50.6 Est GFR (Non-Af Amer) 39.3 BUN/Creatinine Ratio 25.0 H Glucose 116 H Calcium 8.8 Assessment: 1. hemoptysis, recurrent while still on antibiotics ?vasculitis related 2. Cryoglobulinemia 3. Right foot skin graft with chronic non pressure related wounds, no sign or symptom of ongoing infection 4. Sjogren's Plan: 1.Add on CRP, DC meropenem, will ask Dr Hansen to evaluate again ?bronchoscopy Discussed with Arnaud GONZALES
[2016-09-02 11:34] LABS: C Reactive Protein 7.54 mg/L (< 5.00)
[2016-09-02] MEDS ORDERED: Aspirin TAB* 325 MG PO SCH (15:00)
--- NOTE | 2016-09-02 18:40 | PN ---
Progress Note - Progress Note Note: Pulm consult f/u note 09/02/16. Pt seen and examined at bedside, Pt reports episode of blood clot which she saved on tissue, no cahnge in breathing, green phleghm continues Active Medications Generic Name Dose Route Start Last Admin Trade Name Freq PRN Reason Stop Dose Admin Acetaminophen 650 mg 08/18/16 20:10 09/02/16 13:48 Tylenol Tab* PO 650 mg Q6H PRN Administration FEVER/PAIN Albuterol 2.5 mg 08/18/16 20:10 Ventolin 2.5 Mg/3 Ml Neb.Nancy* INH Q2H PRN SOB/WHEEZING Amlodipine Besylate 5 mg 08/19/16 01:00 09/02/16 08:34 Norvasc Tab* PO 5 mg 0900,2100 [facility] Administration Ascorbic Acid 500 mg 08/30/16 21:00 09/02/16 08:34 Vitamin C Tab* PO 500 mg BID [facility] Administration Carvedilol 25 mg 08/18/16 21:00 09/02/16 08:34 Coreg Tab* PO 25 mg 0900,2100 [facility] Administration Clonidine HCl 0.1 mg 08/19/16 09:00 09/02/16 13:43 Catapres Tab* PO 0.1 mg TID [facility] Administration Docusate Sodium 200 mg 08/18/16 21:00 09/02/16 08:35 Colace Cap* PO Not Given BID [facility] Furosemide 40 mg 09/01/16 10:00 09/02/16 15:19 Lasix Tab* PO 40 mg 0800,1700 [facility] Administration Guaifenesin 10 ml 09/01/16 14:00 09/02/16 13:43 Robitussin* PO 10 ml Q8HR [facility] Administration Lactobacillus Rhamnosus 1 cap 08/22/16 13:00 09/02/16 08:34 Culturelle* PO 1 cap BID [facility] Administration Magnesium Sulfate 1 applic 08/23/16 10:24 08/23/16 18:30 Epsom Salt* TOPICAL 1 applic DAILY PRN Administration Foot pain Melatonin 3 mg 08/18/16 20:10 Melatonin (Nf) PO BEDTIME PRN Sleep Protocol Miconazole Nitrate 1 applic 08/21/16 21:00 09/01/16 20:51 Miconazole Vaginal Cream 2%* VAGINAL Not Given BEDTIME [facility] Omeprazole 20 mg 08/19/16 06:00 09/02/16 06:57 Prilosec Cap* PO Not Given DAILY@0600 [facility] Ondansetron HCl 4 mg 08/18/16 20:10 08/27/16 11:20 Zofran Inj* IV 4 mg Q6H PRN Administration NAUSEA Oxycodone HCl 10 mg 08/31/16 11:26 09/02/16 13:44 Roxycodone Tab* PO 10 mg Q5H PRN Administration PAIN Prochlorperazine Edisylate 5 mg 08/19/16 08:39 08/19/16 10:02 Compazine Inj* IV 1 ml Q6H PRN Administration NAUSEA/VOMITING Sodium Chloride 5 ml 08/20/16 10:15 08/27/16 08:03 Sodium Chloride(Inhalant)0.9%* INH 5 ml Q4H PRN Administration dryness/cough Triamcinolone Acetonide 1 applic 08/24/16 00:17 08/30/16 14:29 Triamcinolone 0.025% Oint * TOPICAL 1 applic BID PRN Administration PRURITIS Vital Signs Temp Pulse Resp BP Pulse Ox 98.1 F 73 16 109/63 95 09/02/16 15:20 09/02/16 15:20 09/02/16 15:44 09/02/16 15:20 09/02/16 15:20 Gen: Pt in bed in NAD, eating breakfast HEENT: No Scleral Icterus, Mucous Membranes Moist Neck: Trachea Midline Respiratory: Symmetrical Chest Expansion and Respiratory Effort, Clear to Auscultation Cardiovascular: RRR, Normal S1 and S2 Extremities: Mild LE edema Neuro: No focal defecits Laboratory Results - last 24 hr 09/02/16 09:27 Sodium 133 Potassium 4.7 Chloride 104 Carbon Dioxide 25 Anion Gap 4 BUN 35 H Creatinine 1.40 H Est GFR ( Amer) 50.6 Est GFR (Non-Af Amer) 39.3 BUN/Creatinine Ratio 25.0 H Glucose 116 H Calcium 8.8 C-Reactive Protein 7.54 H I/R: Pt is a 51yo F with PMH of HTN, CVA, CKD stage 3, vasculitis/cryoglobulinemia, Sjogren's, pulmonary HTN, cardiomyopathy who presented with c/o hemoptysis, found to have Pseudomonas PNA. CT chest - shows left basilar pneumonia. No endobronchial lesions - Sputum culture growing Pseudomonas, on Meropenem. - No active bleeding, shows blood clot which is dark, appears to be old clot - V/Q scan- No PE. - Aspirin on hold in the setting of hemoptysis. - Lung biopsy was negative for lymphoma in 2014, showed non specific inflammation. - Pt would want to cosnider bronch again Will schedule for Friday Discussed with pt D/w Arnaud Barber [employer]
[2016-09-02] MEDS ORDERED: Calcium Carbonate CHEW TAB* 500 MG (TUMS) PO ONE (20:09)
[2016-09-02] MEDS ORDERED: Calcium Carbonate CHEW TAB* 500 MG (TUMS) ONE (20:17)
[2016-09-02] MEDS: Miconazole VAGINAL CREAM 2%* 45 GM VAGINAL SCH (22:33)
[2016-09-03] MEDS: oxyCODONE TAB* 5 MG TAB PO PRN ×4 (01:01→21:41)
[2016-09-03] MEDS: Omeprazole CAP* 20 MG PO SCH (06:13)
[2016-09-03] MEDS: guaiFENesin LIQ* 100 MG/5 ML UDC PO SCH ×3 (06:13→21:45)
[2016-09-03] MEDS: cloNIDine TAB* 0.1 MG PO SCH ×3 (09:03→21:43)
[2016-09-03] MEDS: Lactobacillus Acidophilu (GG)* 1 CAP CAP PO SCH ×2 (09:03→21:51)
[2016-09-03] MEDS: amLODIPine TAB* 5 MG PO SCH ×2 (09:03→21:44)
[2016-09-03] MEDS: Docusate CAP* 100 MG PO SCH ×2 (09:03→21:46)
[2016-09-03] MEDS: Carvedilol TAB* 25 MG PO SCH ×2 (09:03→21:42)
[2016-09-03] MEDS: Furosemide TAB* 40 MG PO SCH ×2 (09:03→15:08)
[2016-09-03] MEDS: Ascorbic Acid TAB* 500 MG PO SCH ×2 (09:04→21:43)
[2016-09-03] MEDS: Miconazole VAGINAL CREAM 2%* 45 GM VAGINAL SCH (21:51)
[2016-09-04] MEDS: oxyCODONE TAB* 5 MG TAB PO PRN ×4 (03:35→20:05)
[2016-09-04] MEDS ORDERED: Buffered Lidocaine 1% SYR 3ML* 3 ML/SYR SYRINGE INTRADERM ONE (06:00)
[2016-09-04] MEDS ORDERED: Levalbuterol 0.63MG/3ML NEB INH ONE (06:00)
[2016-09-04] MEDS: Omeprazole CAP* 20 MG PO SCH (06:45)
[2016-09-04] MEDS: guaiFENesin LIQ* 100 MG/5 ML UDC PO SCH ×3 (06:46→21:49)
[2016-09-04] MEDS: amLODIPine TAB* 5 MG PO SCH ×2 (08:04→20:06)
[2016-09-04] MEDS: cloNIDine TAB* 0.1 MG PO SCH ×3 (08:05→20:05)
[2016-09-04] MEDS: Carvedilol TAB* 25 MG PO SCH ×2 (08:05→20:06)
[2016-09-04] MEDS: Ascorbic Acid TAB* 500 MG PO SCH ×2 (08:05→20:06)
[2016-09-04] MEDS: Lactobacillus Acidophilu (GG)* 1 CAP CAP PO SCH ×2 (08:05→20:06)
[2016-09-04] MEDS: Furosemide TAB* 40 MG PO SCH ×2 (08:05→17:00)
[2016-09-04] MEDS: Docusate CAP* 100 MG PO SCH ×2 (08:55→20:04)
[2016-09-04] MEDS ORDERED: Levalbuterol 1.25MG/0.5ML NEB ONE (10:28)
[2016-09-04] MEDS ORDERED: Lidocaine 1% INJ* 10 MG/ML 30 ML SDV ONE (10:55)
[2016-09-04] MEDS ORDERED: Lidocaine 2% PF* 10 ML AMP ONE (10:56)
[2016-09-04] MEDS ORDERED: Lidocaine 2% JELLY* 20 ML (for OR use) ONE (10:56)
--- NOTE | 2016-09-04 11:33 | PN ---
Progress Note - Progress Note Note: Pulm consult f/u note 09/04/16. Pt seen and examined at bedside, no new complaints. Active Medications Generic Name Dose Route Start Last Admin Trade Name Freq PRN Reason Stop Dose Admin Acetaminophen 650 mg 08/18/16 20:10 09/02/16 13:48 Tylenol Tab* PO 650 mg Q6H PRN Administration FEVER/PAIN Albuterol 2.5 mg 08/18/16 20:10 Ventolin 2.5 Mg/3 Ml Neb.Nancy* INH Q2H PRN SOB/WHEEZING Amlodipine Besylate 5 mg 08/19/16 01:00 09/04/16 08:04 Norvasc Tab* PO 5 mg 0900,2100 [facility] Administration Ascorbic Acid 500 mg 08/30/16 21:00 09/04/16 08:05 Vitamin C Tab* PO 500 mg BID [facility] Administration Carvedilol 25 mg 08/18/16 21:00 09/04/16 08:05 Coreg Tab* PO 25 mg 0900,2100 [facility] Administration Clonidine HCl 0.1 mg 08/19/16 09:00 09/04/16 08:05 Catapres Tab* PO 0.1 mg TID [facility] Administration Docusate Sodium 200 mg 08/18/16 21:00 09/04/16 08:55 Colace Cap* PO Not Given BID [facility] Furosemide 40 mg 09/01/16 10:00 09/04/16 08:05 Lasix Tab* PO 40 mg 0800,1700 [facility] Administration Guaifenesin 10 ml 09/01/16 14:00 09/04/16 06:46 Robitussin* PO 10 ml Q8HR [facility] Administration Lactated Ringer's 1,000 mls @ 60 mls/hr 09/04/16 10:00 Lactated Ringers 1000 Ml Bag* IV PER RATE [facility] Lactobacillus Rhamnosus 1 cap 08/22/16 13:00 09/04/16 08:05 Culturelle* PO 1 cap BID [facility] Administration Magnesium Sulfate 1 applic 08/23/16 10:24 08/23/16 18:30 Epsom Salt* TOPICAL 1 applic DAILY PRN Administration Foot pain Melatonin 3 mg 08/18/16 20:10 Melatonin (Nf) PO BEDTIME PRN Sleep Protocol Miconazole Nitrate 1 applic 08/21/16 21:00 09/03/16 21:51 Miconazole Vaginal Cream 2%* VAGINAL Not Given BEDTIME [facility] Omeprazole 20 mg 08/19/16 06:00 09/04/16 06:45 Prilosec Cap* PO Not Given DAILY@0600 [facility] Ondansetron HCl 4 mg 08/18/16 20:10 08/27/16 11:20 Zofran Inj* IV 4 mg Q6H PRN Administration NAUSEA Oxycodone HCl 10 mg 08/31/16 11:26 09/04/16 09:30 Roxycodone Tab* PO 10 mg Q5H PRN Administration PAIN Prochlorperazine Edisylate 5 mg 08/19/16 08:39 08/19/16 10:02 Compazine Inj* IV 1 ml Q6H PRN Administration NAUSEA/VOMITING Sodium Chloride 5 ml 08/20/16 10:15 08/27/16 08:03 Sodium Chloride(Inhalant)0.9%* INH 5 ml Q4H PRN Administration dryness/cough Triamcinolone Acetonide 1 applic 08/24/16 00:17 08/30/16 14:29 Triamcinolone 0.025% Oint * TOPICAL 1 applic BID PRN Administration PRURITIS Vital Signs Temp Pulse Resp BP Pulse Ox 98.7 F 92 18 134/77 96 09/04/16 08:09 09/04/16 09:23 09/04/16 09:30 09/04/16 08:09 09/04/16 09:23 Gen: Pt in bed in NAD, sitting up HEENT: No Scleral Icterus, Mucous Membranes Moist, has sore near lower lip Neck: Trachea Midline, No JVD Respiratory: Symmetrical Chest Expansion and Respiratory Effort, Clear to Auscultation Cardiovascular: RRR, Normal S1 and S2 Extremities: Trace LE edema, LE in dressing Neuro: No focal defecits Laboratory Results - last 24 hr 09/04/16 06:22 POC Glucose (mg/dL) 101 I/R: Pt is a 51yo F with PMH of HTN, CVA, CKD stage 3, vasculitis/cryoglobulinemia, Sjogren's, pulmonary HTN, cardiomyopathy who presented with c/o hemoptysis, found to have Pseudomonas PNA. CT chest - shows left basilar pneumonia. No endobronchial lesions - Sputum culture growing Pseudomonas, on Meropenem. - No active bleeding, had recurrence of blood clot which is dark, appears to be old clot - V/Q scan- No PE. - Aspirin on hold in the setting of hemoptysis. - Lung biopsy was negative for lymphoma in 2015, showed non specific inflammation. - Pt scheduled for bronchoscopy for airway inspection given hemoptysis and also for bronchoa alveolar lavage Procedure was discussed in detail Associated risks and benefits were discussed in detail Pt agreeable to procedure Pt is NPO
[2016-09-04] MEDS ORDERED: Ondansetron INJ* 2 MG/ML VIAL ONE ×2 (11:38→15:38)
[2016-09-04] MEDS ORDERED: Propofol* 10 MG/ML 20 ML BTL IV PUSH ONE ×2 (11:38→15:38)
[2016-09-04] MEDS ORDERED: Lidocaine 2% PF * 5 ML VIAL ONE ×2 (11:38→15:38)
[2016-09-04] MEDS ORDERED: fentaNYL* 50 MCG/ML 2 ML VIAL (100 MCG VIAL) ONE (11:38)
[2016-09-04] MEDS ORDERED: Levalbuterol 0.63MG/3ML NEB INH PRN (11:47)
[2016-09-04] MEDS ORDERED: Ondansetron ODT TAB* 4 MG PO PRN (11:47)
[2016-09-04] MEDS ORDERED: Dexamethasone IV* 4 MG/ML 1 ML (4 MG) ONE (15:38)
[2016-09-04] MEDS ORDERED: Midazolam* 1 MG/ML 5 ML VIAL (5 MG) ONE (15:38)
[2016-09-04] MEDS ORDERED: Ketorolac INJ* 30 MG/ML 1 ML VIAL ONE (15:38)
[2016-09-04] MEDS ORDERED: KETAMINE HCL* 50 MG/ML 10 ML VIAL ONE (15:38)
[2016-09-04] MEDS ORDERED: fentaNYL* 50 MCG/ML 5 ML VIAL (250 MCG VIAL) ONE (15:38)
--- NOTE | 2016-09-04 17:19 | PN ---
Subjective Date of Service: 09/04/16 Interval History: Ms. Galicia states that she is feeling drowsy after her bronchoscopy. She denies other complaint. She has had no hemoptysis. She further denies chest pain, SOB, nausea, or abdominal pain. Family History: Unchanged from Admission Social History: Unchanged from Admission Past Medical History: Unchanged from Admission Objective Active Medications: Acetaminophen (Tylenol Tab*) 650 mg PO Q6H PRN Albuterol (Ventolin 2.5 Mg/3 Ml Neb.Nancy*) 2.5 mg INH Q2H PRN Amlodipine Besylate (Norvasc Tab*) 5 mg PO 0900,2100 CHAITANYA Ascorbic Acid (Vitamin C Tab*) 500 mg PO BID CHAITANYA Carvedilol (Coreg Tab*) 25 mg PO 0900,2100 CHAITANYA Clonidine HCl (Catapres Tab*) 0.1 mg PO TID CHAITANYA Docusate Sodium (Colace Cap*) 200 mg PO BID CHAITANYA Furosemide (Lasix Tab*) 40 mg PO 0800,1700 CHAITANYA Guaifenesin (Robitussin*) 10 ml PO Q8HR CHAITANYA Lactated Ringer's (Lactated Ringers 1000 Ml Bag*) 1,000 mls @ 60 mls/hr IV PER RATE CHAITANYA Lactobacillus Rhamnosus (Culturelle*) 1 cap PO BID CHAITANYA Levalbuterol HCl (Xopenex 0.63mg/3ml Neb*) 0.63 mg INH ONCE PRN Magnesium Sulfate (Epsom Salt*) 1 applic TOPICAL DAILY PRN Melatonin (Melatonin (Nf)) 3 mg PO BEDTIME PRN; Protocol Miconazole Nitrate (Miconazole Vaginal Cream 2%*) 1 applic VAGINAL BEDTIME CHAITANYA Omeprazole (Prilosec Cap*) 20 mg PO DAILY@0600 CHAITANYA Ondansetron HCl (Zofran Inj*) 4 mg IV Q6H PRN Oxycodone HCl (Roxycodone Tab*) 10 mg PO Q5H PRN Prochlorperazine Edisylate (Compazine Inj*) 5 mg IV Q6H PRN Sodium Chloride (Sodium Chloride(Inhalant)0.9%*) 5 ml INH Q4H PRN Triamcinolone Acetonide (Triamcinolone 0.025% Oint *) 1 applic TOPICAL BID PRN Vital Signs 09/03/16 09/03/16 09/03/16 21:11 21:41 21:50 Temperature 98.8 F Pulse Rate 89 Respiratory 16 20 20 Rate Blood Pressure 142/85 (mmHg) O2 Sat by Pulse 97 Oximetry 09/03/16 09/03/16 09/04/16 23:26 23:41 03:35 Temperature 98.6 F Pulse Rate 95 Respiratory 16 16 20 Rate Blood Pressure 143/78 (mmHg) O2 Sat by Pulse 97 Oximetry 09/04/16 09/04/16 09/04/16 05:35 08:09 09:23 Temperature 98.7 F Pulse Rate 92 92 Respiratory 16 14 17 Rate Blood Pressure 134/77 (mmHg) O2 Sat by Pulse 94 96 Oximetry 09/04/16 09/04/16 09/04/16 09:30 11:30 12:30 Temperature 98.6 F Pulse Rate 82 Respiratory 18 14 14 Rate Blood Pressure 116/80 (mmHg) O2 Sat by Pulse 99 Oximetry 09/04/16 09/04/16 09/04/16 12:35 12:40 12:45 Temperature Pulse Rate 94 87 85 Respiratory 14 14 14 Rate Blood Pressure 131/85 131/89 141/88 (mmHg) O2 Sat by Pulse 100 100 96 Oximetry 09/04/16 09/04/16 13:00 14:58 Temperature Pulse Rate 77 Respiratory 14 14 Rate Blood Pressure 131/85 (mmHg) O2 Sat by Pulse 95 Oximetry Oxygen Devices in Use Now: None Appearance: Female sitting up in bed in NAD Eyes: No Scleral Icterus Ears/Nose/Mouth/Throat: Clear Oropharnyx Respiratory: Symmetrical Chest Expansion and Respiratory Effort, - - Inspiratory crackles in left base Cardiovascular: NL Sounds; No Murmurs; No JVD, No Edema Abdominal: NL Sounds; No Tenderness; No Distention Extremities: No Edema Skin: - - right foot wound not assessed, plan to assess tomorrow during routine dressing change Neurological: Alert and Oriented x 3, NL Muscle Strength and Tone Nutrition: Taking PO's Result Diagrams: 09/01/16 06:00 09/02/16 09:27 Additional Lab and Data: Microbiology and Other Data: Microbiology 08/18/16 20:30 Legionella Urinary Antigen - Final Urine Negative Legionella Streptococcus pneumoniae Ag Screen - Final Negative S. pneumo Antigen 08/18/16 21:35 Gram Stain - Final Sputum 08/18/16 21:40 Influenza Types A,B Antigen (RUPERT) - Final Nasal Specimen received for Influenza A/B Molecular testing Assess/Plan/Problems-Billing Assessment: Mrs. Galicia is a 51yo F with PMH of HTN, CVA, CKD stage 3, vasculitis/ cryoglobulinemia, Sjogren's, pulmonary HTN, cardiomyopathy who presented with c/ o hemoptysis, found to have Pseudomonas PNA. - Patient Problems (1) Pseudomonas pneumonia Comment: CT demonstrated left basilar pneumonia. Sputum culture grew Pseudomonas. ID and pulm consult appreciated - completed course of meropenem. Question of ongoing hemoptysis related to vasculitis, bronch completed today. Plan to follow up with Dr. Hansen outpatient. (2) Sjogrens syndrome Comment: Per previous records from Dr. 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 She has been offered and refused immunosuppressants. With chronic wounds. Question if this is culprit or at least contributing to hemoptysis. Bronch completed today. Appreciate Dr. Hansen's input. (3) Chronic wound of extremity Comment: ID input appreciated - completed course of antibiotics. Wound care appreciated - continue q3 days dressing changes with Acticoat flex/ABD/roll gauze. Plan for HPB therapy at [facility] when discharged. (4) CKD (chronic kidney disease), stage III Comment: Creatinine at baseline. (5) CVA (cerebral vascular accident) Comment: h/o CVA. Continue aspirin. (6) Cardiomyopathy Comment: EF 40-45%. Appears euvolemic, continue routine lasix. (7) Hypertension Comment: Controlled. Continue Clonidine, Amlodipine, and Coreg. (8) Anemia Comment: Chronic normocytic anemia. Hgb stable ~10 g/dl (9) Leukopenia Comment: This has been chronic dating back to at lease 2010 (our lab results do not go back further). Likely secondary to autoimmune disease. Continue to monitor. (10) Vaginal candidiasis Comment: Reports vaginal discharge and itching, in setting of recent antibiotic use will give one time dose of diflucan for suspected vaginal candidasis. (11) DVT prophylaxis Comment: SCDs (12) Full code status Status and Disposition: Inpatient for IV antibiotics. Anticipate discharge tomorrow am.
[2016-09-04] MEDS ORDERED: Fluconazole 100 MG TAB* TAB PO ONE (17:27)
[2016-09-04] MEDS ORDERED: EPHEDrine (Pressors)* 50 MG/ML VIAL ONE (18:27)
[2016-09-04] MEDS: Miconazole VAGINAL CREAM 2%* 45 GM VAGINAL SCH (20:04)
--- NOTE | 2016-09-05 00:08 | PRO ---
BRONCHOSCOPY REPORT: DATE OF PROCEDURE: 09/04/16 PROCEDURE PERFORMED: Bronchoscopy with bronchoalveolar lavage. INDICATIONS FOR PROCEDURE: Pneumonia, hemoptysis. PREPROCEDURAL DIAGNOSES: Hemoptysis, pseudomonas pneumonia. ANESTHESIA: General anesthesia. The patient intubated with size 8.0 endotracheal tube. ANESTHESIOLOGIST: Dr. Alves, refer to anesthesiologist note for further details. DESCRIPTION OF PROCEDURE: Informed consent was obtained from the patient prior to the procedure after all the risks and benefits were thoroughly explained. The patient was being treated for pseudomonas pneumonia, cough for the past 3 months and hemoptysis with blood clots. The patient also has a history of lymphoma and had bronchoscopy, EBUS, and transbronchial biopsy in the past, which did not reveal malignancy or lymphoma, showed inflammatory process. Appropriate time-out was agreed on by operating room staff prior to the procedure. The patient was placed supine on the operating room table, was intubated with size 8.0 endotracheal tube was placed. Flexible Olympus bronchoscope was then inserted through endotracheal tube. Endotracheal tube positioning was confirmed to be 2 cm above the level of fanny. Bronchoscope was then advanced into the trachea. The patient noted to have thick white secretions bilaterally seeping into the trachea. No bleeding or blood clots were noted. Airways, however, would bleed to suction trauma. No endobronchial lesions were noted. Bronchoscope was then advanced into the right bronchial tree, which was then inspected. Thick secretions were once again noted, which were suctioned out. Bronchoalveolar lavage was obtained from right lower lobe and left lower lobe. Bronchoscope was then advanced into the left bronchial tree, which was inspected. No endobronchial lesions were noted. Secretions were all suctioned out. The patient tolerated the procedure well. The patient was extubated and seen in recovery area in optimal condition. Specimen was sent to microbiology and cytological examination. [id number]/[facility] #: [id number] [facility]
[2016-09-05] MEDS: oxyCODONE TAB* 5 MG TAB PO PRN ×4 (01:12→18:23)
[2016-09-05] MEDS: Omeprazole CAP* 20 MG PO SCH (04:17)
[2016-09-05] MEDS: guaiFENesin LIQ* 100 MG/5 ML UDC PO SCH ×2 (06:18→15:02)
[2016-09-05 08:15] VITALS: BP 124/74
[2016-09-05] MEDS: amLODIPine TAB* 5 MG PO SCH (08:24)
[2016-09-05] MEDS: Carvedilol TAB* 25 MG PO SCH (08:24)
[2016-09-05] MEDS: Furosemide TAB* 40 MG PO SCH ×2 (08:24→17:21)
[2016-09-05] MEDS: Ondansetron INJ* 2 MG/ML VIAL IV PRN (08:24)
[2016-09-05] MEDS: cloNIDine TAB* 0.1 MG PO SCH ×2 (08:24→15:02)
[2016-09-05] MEDS: Ascorbic Acid TAB* 500 MG PO SCH (08:24)
[2016-09-05] MEDS: Docusate CAP* 100 MG PO SCH (08:24)
[2016-09-05] MEDS: Lactobacillus Acidophilu (GG)* 1 CAP CAP PO SCH (08:30)
[2016-09-05 10:28] LABS: Hematocrit 27 % (35-47); Mean Corpuscular HGB Conc 33 g/dl (31-36); Mean Corpuscular Hemoglobin 30 pg (27-31); Mean Corpuscular Volume 91 fL (80-97); Mean Platelet Volume 7 um3 (7.4-10.4); Red Blood Count 3.03 10^6/ul (4.0-5.4); Red Cell Distribution Width 15 % (10.5-15); White Blood Count 3.8 10^3/ul (3.5-10.8)
[2016-09-05 10:41] LABS: BUN/Creatinine Ratio 21.7 (8-20); Calcium 8.7 mg/dL (8.6-10.3); EGFR Non-African American 35.8 (>60); Potassium 4.7 mmol/L (3.5-5.0)
[2016-09-05] MEDS: Acetaminophen TAB* 325 MG PO PRN (12:35)
--- NOTE | 2016-09-05 15:38 | PN ---
Subjective Date of Service: 09/05/16 Interval History: Ms. Galicia denies acute complaint today. She denies shortness of breath, chest pain, cough, or hemoptysis. She further denies nausea or abdominal pain. Family History: Unchanged from Admission Social History: Unchanged from Admission Past Medical History: Unchanged from Admission Objective Active Medications: Acetaminophen (Tylenol Tab*) 650 mg PO Q6H PRN Albuterol (Ventolin 2.5 Mg/3 Ml Neb.Nancy*) 2.5 mg INH Q2H PRN Amlodipine Besylate (Norvasc Tab*) 5 mg PO 0900,2100 CHAITANYA Ascorbic Acid (Vitamin C Tab*) 500 mg PO BID CHAITANYA Carvedilol (Coreg Tab*) 25 mg PO 0900,2100 CHAITANYA Clonidine HCl (Catapres Tab*) 0.1 mg PO TID CHAITANYA Docusate Sodium (Colace Cap*) 200 mg PO BID CHAITANYA Furosemide (Lasix Tab*) 40 mg PO 0800,1700 CHAITANYA Guaifenesin (Robitussin*) 10 ml PO Q8HR CHAITANYA Lactated Ringer's (Lactated Ringers 1000 Ml Bag*) 1,000 mls @ 60 mls/hr IV PER RATE CHAITANYA Lactobacillus Rhamnosus (Culturelle*) 1 cap PO BID CHAITANYA Magnesium Sulfate (Epsom Salt*) 1 applic TOPICAL DAILY PRN Melatonin (Melatonin (Nf)) 3 mg PO BEDTIME PRN; Protocol Miconazole Nitrate (Miconazole Vaginal Cream 2%*) 1 applic VAGINAL BEDTIME CHAITANYA Omeprazole (Prilosec Cap*) 20 mg PO DAILY@0600 CHAITANYA Ondansetron HCl (Zofran Inj*) 4 mg IV Q6H PRN Oxycodone HCl (Roxycodone Tab*) 10 mg PO Q5H PRN Prochlorperazine Edisylate (Compazine Inj*) 5 mg IV Q6H PRN Sodium Chloride (Sodium Chloride(Inhalant)0.9%*) 5 ml INH Q4H PRN Triamcinolone Acetonide (Triamcinolone 0.025% Oint *) 1 applic TOPICAL BID PRN Vital Signs 09/04/16 09/04/16 09/04/16 15:49 16:00 16:58 Temperature 98.6 F Pulse Rate 76 Respiratory 16 14 Rate Blood Pressure 128/70 (mmHg) O2 Sat by Pulse 96 96 Oximetry 09/04/16 09/04/16 09/04/16 19:44 20:00 20:05 Temperature 98.6 F Pulse Rate 85 Respiratory 16 16 16 Rate Blood Pressure 129/58 (mmHg) O2 Sat by Pulse 95 Oximetry 09/04/16 09/04/16 09/05/16 21:51 23:24 00:00 Temperature 98.9 F Pulse Rate 81 Respiratory 16 14 Rate Blood Pressure 140/73 (mmHg) O2 Sat by Pulse 94 94 Oximetry 09/05/16 09/05/16 09/05/16 01:12 03:12 06:17 Temperature Pulse Rate Respiratory 14 16 16 Rate Blood Pressure (mmHg) O2 Sat by Pulse Oximetry 09/05/16 09/05/16 09/05/16 07:49 08:00 08:17 Temperature 98.0 F Pulse Rate 73 Respiratory 18 18 16 Rate Blood Pressure 124/74 (mmHg) O2 Sat by Pulse 93 93 Oximetry 09/05/16 09/05/16 12:35 14:35 Temperature Pulse Rate Respiratory 16 18 Rate Blood Pressure (mmHg) O2 Sat by Pulse Oximetry Oxygen Devices in Use Now: None Appearance: Female sitting up in bed in NAD Eyes: No Scleral Icterus Ears/Nose/Mouth/Throat: Mucous Membranes Moist Neck: NL Appearance and Movements; NL JVP, Trachea Midline Respiratory: Symmetrical Chest Expansion and Respiratory Effort, Clear to Auscultation Cardiovascular: NL Sounds; No Murmurs; No JVD, No Edema Abdominal: NL Sounds; No Tenderness; No Distention Extremities: No Edema Skin: - - no ulcerations to left foot skin graft, Right foot with two large ulcerations, one to medial malleous is approx 2 inches in diameter, the other is across the dorsal foot is approx 2 inches wide x 6 inches long Neurological: Alert and Oriented x 3, NL Muscle Strength and Tone Nutrition: Taking PO's Result Diagrams: 09/05/16 10:18 09/05/16 10:18 Additional Lab and Data: Microbiology and Other Data: Microbiology 08/18/16 20:30 Legionella Urinary Antigen - Final Urine Negative Legionella Streptococcus pneumoniae Ag Screen - Final Negative S. pneumo Antigen 08/18/16 21:35 Gram Stain - Final Sputum 08/18/16 21:40 Influenza Types A,B Antigen (RUPERT) - Final Nasal Specimen received for Influenza A/B Molecular testing Assess/Plan/Problems-Billing Assessment: Mrs. Galicia is a 51yo F with PMH of HTN, CVA, CKD stage 3, vasculitis/ cryoglobulinemia, Sjogren's, pulmonary HTN, cardiomyopathy who presented with c/ o hemoptysis, found to have Pseudomonas PNA. - Patient Problems (1) Pseudomonas pneumonia Comment: CT demonstrated left basilar pneumonia. Sputum culture grew Pseudomonas. ID and pulm consult appreciated - completed course of meropenem. Question of ongoing hemoptysis related to vasculitis, bronch completed 09/04/16. Plan to follow up with Dr. Hansen outpatient. (2) Sjogrens syndrome Comment: Per previous records from Dr. 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 She has been offered and refused immunosuppressants. With chronic wounds. Question if this is culprit or at least contributing to hemoptysis. Bronch completed today. Appreciate Dr. Hansen's input. (3) Chronic wound of extremity Comment: ID input appreciated - completed course of antibiotics. Wound care appreciated - continue q3 days dressing changes with Acticoat flex/ABD/roll gauze. Plan for [facility] therapy at [facility] when discharged. (4) CKD (chronic kidney disease), stage III Comment: Creatinine at baseline. (5) CVA (cerebral vascular accident) Comment: h/o CVA. Continue aspirin. (6) Cardiomyopathy Comment: EF 40-45%. Appears euvolemic, continue routine lasix. (7) Hypertension Comment: Controlled. Continue Clonidine, Amlodipine, and Coreg. (8) Anemia Comment: Chronic normocytic anemia. Hgb stable ~10 g/dl (9) Leukopenia Comment: This has been chronic dating back to at lease 2010 (our lab results do not go back further). Likely secondary to autoimmune disease. Continue to monitor. (10) Vaginal candidiasis Comment: Reports vaginal discharge and itching, in setting of recent antibiotic use will give one time dose of diflucan for suspected vaginal candidasis. (11) DVT prophylaxis Comment: SCDs (12) Full code status Status and Disposition: Inpatient for IV antibiotics. Discharge to home.
--- NOTE | 2016-09-06 06:13 | DS ---
HOSPITAL MEDICINE DISCHARGE SUMMARY: DATE OF ADMISSION: 08/18/16 DATE OF DISCHARGE: 09/05/16 PRIMARY CARE PHYSICIAN: Rose Mary Little MD ATTENDING PHYSICIAN: Alek Kapoor MD *(dictation provided by Colleen Gonzalez NP ) PRIMARY DIAGNOSIS: Pseudomonas pneumonia. SECONDARY DIAGNOSES: 1. Sjogren syndrome with mixed cryoglobulinemia. 2. Vasculitis. 3. Bilateral foot ulcers, status post skin grafting. 4. Cerebrovascular accident x2. 5. [id number] pulmonary hypertension. 6. Chronic kidney disease, stage 3B. 7. Cardiomyopathy with an EF of 40% to 45%. 8. Hypertension. 9. Normocytic anemia. 10. Peripheral neuropathy. 11. History of lymphoma. MEDICATIONS AT THE TIME OF DISCHARGE: 1. Hold aspirin until followup with Dr. Hansen. 2. Ondansetron p.r.n. 3. Clonidine 0.1 mg p.o. b.i.d. 4. Carvedilol 25 mg p.o. daily. 5. Ibuprofen p.r.n. 6. Tylenol p.r.n. 7. Oxycodone 10 to 20 mg p.o. q.6 hours p.r.n. 8. Amlodipine 10 mg p.o. b.i.d. 9. Furosemide 40 mg p.o. b.i.d. HOSPITAL COURSE: Ms. Galicia is a 51-year-old female with a complicated past medical history including Sjogren syndrome with associated cryoglobulinemia and bilateral foot ulcers. She also has a history of pulmonary hypertension and cardiomyopathy with stage 3 kidney disease. She presented to our hospital on with concern for coughing up blood. She reported that for her ongoing cough, she had been treated with azithromycin and then switched over to doxycycline without significant improvement. She then developed hemoptysis. In the emergency room, she had a chest x-ray, which showed a left basilar pneumonia. She was admitted to the hospital and treatment was began with clindamycin. On 08/19/16, Ms. Galicia had a chest CT without contrast that showed findings consistent with left basilar pneumonia. She was seen by Dr. Solomon from infectious diseases on 08/20/16. She was noted to have sputum cultures growing pseudomonas. Her antibiotics were changed to meropenem with ciprofloxacin. She continued to have hemoptysis and she was seen by Dr. Hansen from Pulmonology. She concurred with continued treatment for suspected pseudomonas pneumonia, but suggested also the possibility of pulmonary embolism and recommended a lung V/Q scan. The patient had a V/Q scan on 08/23/16, which showed no pulmonary embolism. The patient did better for several days, but then again had hemoptysis and plans were made for patient to have a bronchoscopy , which was accomplished on 09/04/16. Bronchoscopy noted that the patient had thick white secretion, but no bleeding was noted. Biopsies were obtained and those are pending. Since the procedure, Ms. Galicia has been doing well. She has had no further hemoptysis. She is breathing easily. She has no acute complaints. Ms. Galicia is medically stable for discharge. She will be following up in [place] with the team there regarding her ulcerations to her right foot, status post skin grafting. Her labs are stable today. Her white blood cell count is 3.8 and hemoglobin is 9.0. Her BUN is 33 and creatinine is 1.52. Her CRP is 7.54. Vitals are stable. DISPOSITION: Home. DIET: Regular. ACTIVITY: As tolerated. FOLLOWUP PLANS: 1. Please follow up per routine with Dr. Little after this hospitalization. The patient is asked to call for an appointment. 2. Please follow up with Dr. Hansen for results from the bronchoscopy. 3. Please follow up with [place] team regarding ulcerations to right foot as scheduled. TIME SPENT: Approximately 60 minutes was spent in the discharge of this patient , more than half of the time was spent with the patient at the bedside reviewing the events leading up to this hospitalization, performing the physical examination, and reviewing the plan of care. COLLEEN GONZALEZ NP CC: Dr. Little* [id number]/[facility] #: [id number] [place]
== END 2016-09-05 18:30 | disposition home or self-care (01) | DRG 167 ==
LOC: ED 15:20 → MED 20:06
PROVIDERS: ADMIT Hospitalist; ATTEND Internal Medicine
PROC: 0B9J8ZX Drainage of Left Lower Lung Lobe, Via Natural or Artificial Opening Endoscopic, Diagnostic (ICD-10-PCS; 2016-09-04)
PROC: 0B9F8ZX Drainage of Right Lower Lung Lobe, Via Natural or Artificial Opening Endoscopic, Diagnostic (ICD-10-PCS; principal; 2016-09-04 11:30)
DX: J15.1 Pneumonia due to Pseudomonas (principal); I13.0 Hypertensive heart and chronic kidney disease with heart failure and stage 1 through stage 4 chronic kidney disease, or unspecified chronic kidney disease; M32.9 Systemic lupus erythematosus, unspecified; I42.9 Cardiomyopathy, unspecified; C85.10 Unspecified B-cell lymphoma, unspecified site; N18.3 Chronic kidney disease, stage 3 (moderate); I50.22 Chronic systolic (congestive) heart failure; I27.2 Other secondary pulmonary hypertension; M35.00 Sjogren syndrome, unspecified; G62.9 Polyneuropathy, unspecified; D89.1 Cryoglobulinemia; L97.519 Non-pressure chronic ulcer of other part of right foot with unspecified severity; R60.9 Edema, unspecified; L27.0 Generalized skin eruption due to drugs and medicaments taken internally; T36.8X5A Adverse effect of other systemic antibiotics, initial encounter; B37.3 Candidiasis of vulva and vagina; Z86.73 Personal history of transient ischemic attack (TIA), and cerebral infarction without residual deficits; Z87.891 Personal history of nicotine dependence; Z91.040 Latex allergy status; Z88.1 Allergy status to other antibiotic agents; Z88.2 Allergy status to sulfonamides; Z88.0 Allergy status to penicillin; Z91.041 Radiographic dye allergy status; Z88.8 Allergy status to other drugs, medicaments and biological substances; Z91.048 Other nonmedicinal substance allergy status; Z82.49 Family history of ischemic heart disease and other diseases of the circulatory system; Z83.3 Family history of diabetes mellitus; Z82.3 Family history of stroke; Z86.14 Personal history of Methicillin resistant Staphylococcus aureus infection
CPT/HCPCS: 36415; 71020; 71250; 78582; 80048; 80053; 82607; 82668; 82728; 82746; 83540; 83550; 83605; 84134; 84484; 85025; 85027; 85379; 85610; 85730; 86140; 86255; 87040; 87070; 87077; 87102; 87106; 87116; 87186; 87205; 87206; 87502; 87899; 88112; 88305; 93005; 94640; 94760; A9270-GY; A9540; A9558; J0744; J0780; J1100; J1885; J1940; J2001; J2185; J2250; J2405; J2704; J3010